=== PATIENT | male | born 1960 | race Two or more races ===

== ENCOUNTER 2019-08-16 17:18 | Inpatient (IN) | payer BC, OTHER ==
[~2019-08-16] VITALS: Ht 177.8 cm; Wt 76.7 kg
[2019-08-16] MEDS ORDERED: HYDROMORPHONE INJ 2 MG/ML DISP.SYRIN IV ONE ×2 (17:30→18:30)
[2019-08-16] MEDS ORDERED: ONDANSETRON HCL/PF 4 MG/2 ML VIAL IVP ONE (17:30)
[2019-08-16] MEDS ORDERED: IV NS 0.9% 1,000 ML BAG IV ONE ×2 (17:30→18:30)
[2019-08-16 17:43] LABS: BASOPHILS % (AUTO) 0.3 % (0.0-2.0); EOSINOPHILS % (AUTO) 0.1 % (0.0-6.0); HEMATOCRIT 54 % (39-51); HEMOGLOBIN 18.4 g/dL (13.5-17.5); LYMPHOCYTES # (AUTO) 0.5 /CMM (0.8-4.8); LYMPHOCYTES % (AUTO) 7.4 % (20.0-44.0); MEAN CORPUSCULAR HGB CONC 34 g/dl (31.0-36.0); MEAN CORPUSCULAR VOLUME 86 fL (80-96); MONOCYTES # (AUTO) 0.3 /CMM (0.1-1.30); MONOCYTES % (AUTO) 3.7 % (2.0-12.0); NEUTROPHILS # (AUTO) 6.5 /CMM (1.8-8.9); NEUTROPHILS % (AUTO) 88.5 % (43.0-81.0); PLATELET COUNT (AUTO) 188 /CMM (150-450); RED BLOOD CELL COUNT(AUTO) 6.25 MIL/uL (4.5-6.0); WHITE BLOOD COUNT (AUTO) 7.3 K/uL (4.3-11.0)
[2019-08-16] MEDS ORDERED: HYDROMORPHONE 1 MG/1 ML DISP.SYRIN ONE ×3 (17:57→19:51)
[2019-08-16] MEDS ORDERED: ONDANSETRON HCL/PF 4 MG/2 ML VIAL ONE (17:57)
[2019-08-16 17:59] LABS: ALBUMIN 4.3 g/dL (3.4-5.0); BILIRUBIN,DIRECT 0.2 mg/dL (0.0-0.2); BILIRUBIN,TOTAL 0.8 mg/dL (0.2-1.0); CALCIUM, SERUM 9.3 mg/dL (8.5-10.1); CREATININE 1.5 mg/dL (0.6-1.3); POTASSIUM 3.3 mmol/L (3.5-5.1); TOTAL PROTEIN, SERUM 7.5 g/dL (6.4-8.2)
--- NOTE | 2019-08-16 18:07 | NUR ---
diffuse abdominal pain, distension since noon. n/v x 1 lpta. PT AAOX4, RR EVEN & UNLABORED. DENIES CP, SOB, DIZZINESS @ THIS TIME. PT SEEN & EVAL'D BY DAMEON SILVEIRA. MEDICATED ORDERED, PT JOANNA WELL. WILL CONT TO MONITOR.
[2019-08-16] MEDS ORDERED: IV NS 0.9% 250 ML IV ONE (18:13)
[2019-08-16] MEDS ORDERED: CT SWABBABLE VALVE TRANS SET 1 EA INFUS.SET MC ONE (18:13)
[2019-08-16] MEDS ORDERED: IOHEXOL-300 100 ML VIAL IV ONE (18:13)
[2019-08-16 18:24] LABS: LYMPHOCYTES % (MANUAL) 7 % (16-48); MONOCYTES % (MANUAL) 3 % (0-11.0); NEUTROPHILS % (MANUAL) 90 (42-76)
--- NOTE | 2019-08-16 18:48 | NUR ---
MEDICATED ORDERED BY DAMEON SILVEIRA. PT JOANNA ERWIN. 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
[2019-08-16] MEDS ORDERED: HYDROMORPHONE INJ 0.5 MG/0.5 ML SYRINGE IV ONE (20:00)
--- NOTE | 2019-08-16 20:02 | NUR ---
CALLED NURSING SUP FOR M/S BED.
[2019-08-16] MEDS ORDERED: KETOROLAC TROMETHAMINE INJ 30 MG/ML VIAL ONE (20:05)
--- NOTE | 2019-08-16 20:25 | NUR ---
MITUL RBUCE [phone]
--- NOTE | 2019-08-16 20:27 | NUR ---
MS BED 117-2
[2019-08-16] MEDS ORDERED: KETOROLAC TROMETHAMINE INJ 30 MG/ML VIAL IV ONE (20:30)
[2019-08-16] MEDS ORDERED: PIPERACILLIN /TAZOBACTAM 3.375 G in IV D5W 50 ML IV ONE (20:30)
[2019-08-16] MEDS ORDERED: PIPERACILLIN /TAZOBACTAM 3.375 G VIAL IV ONE (20:51)
[2019-08-16 21:14] LABS: APPEARANCE,URINE Clear (CLEAR); BILIRUBIN,URINE Negative (NEGATIVE); BLOOD, URINE Small Ery/uL (NEGATIVE); COLOR,URINE Yellow (YELLOW); KETONES,URINE 15 (NEGATIVE); LEUKOCYTE ESTERASE ,URINE Negative (NEGATIVE); NITRITE, URINE Negative (NEGATIVE); PROTEIN,URINE Negative (NEGATIVE); UGLUCOSE 100 MG/DL mg/dL (NEGATIVE); UROBILINOGEN,URINE 0.2 EU/dL (0.2)
[2019-08-16 21:23] LABS: BACTERIA,URINE Few /HPF (None Seen); SQUAMOUS EPITHELIAL CELL,UR Few /HPF (None Seen); WBC,URINE 0-2 /HPF (0-3)
[2019-08-16 22:00] VITALS: BP 187/114
--- NOTE | 2019-08-16 22:08 | NUR ---
REPORT GIVEN TO JOHNATHAN CORTES FOR THOMAS.
[2019-08-16] MEDS: IV NS 0.9% 1,000 ML IV PRN (22:59)
[2019-08-16] MEDS: HYDROMORPHONE INJ 2 MG/ML DISP.SYRIN IV PRN (23:00)
[2019-08-16] MEDS ORDERED: MAGNESIUM HYDROXIDE 30 ML UDC PO PRN (23:00)
[2019-08-16] MEDS ORDERED: MAG HYDROX/AL HYDROX/SIMETH 30 ML UDC PO PRN (23:00)
[2019-08-16] MEDS ORDERED: ONDANSETRON HCL/PF 4 MG/2 ML VIAL IVP PRN (23:00)
[2019-08-16] MEDS ORDERED: HYDROCODONE/APAP 5/325MG 1 EACH TABLET PO PRN (23:00)
[2019-08-16] MEDS ORDERED: ZOLPIDEM TARTRATE 5 MG TABLET PO PRN (23:00)
[2019-08-17] VITALS (26 sets, daily range): BP systolic 80–117; BP diastolic 47–72
[2019-08-17] MEDS: HYDROMORPHONE INJ 2 MG/ML DISP.SYRIN IV PRN ×2 (02:39→06:47)
[2019-08-17] MEDS ORDERED: ZOSYN IVPB 3.375 G in IV D5W 50ml IV SCH (06:00)
[2019-08-17 06:35] LABS: BASOPHILS % (AUTO) 0.1 % (0.0-2.0); HEMATOCRIT 54 % (39-51); HEMOGLOBIN 18.1 g/dL (13.5-17.5); LYMPHOCYTES # (AUTO) 0.5 /CMM (0.8-4.8); LYMPHOCYTES % (AUTO) 8.6 % (20.0-44.0); MEAN CORPUSCULAR HGB CONC 34 g/dl (31.0-36.0); MEAN CORPUSCULAR VOLUME 88 fL (80-96); MONOCYTES # (AUTO) 0.4 /CMM (0.1-1.30); MONOCYTES % (AUTO) 7.6 % (2.0-12.0); NEUTROPHILS # (AUTO) 4.4 /CMM (1.8-8.9); NEUTROPHILS % (AUTO) 83.7 % (43.0-81.0); PLATELET COUNT (AUTO) 232 /CMM (150-450); WHITE BLOOD COUNT (AUTO) 5.3 K/uL (4.3-11.0)
--- NOTE | 2019-08-17 07:00 | NUR ---
RN MS NOTES PATIENT RECEIVED FROM PM SHIFT. PATIENT IS AWAKE AND ORIENTED X4 . PATIENT COMPLAINED OF PAIN L SIDE 06/30 PATIENT IS ON 2 L NC 98% SATURATION, PATIENT CURRENTLY HAS ELEVATED HEART RATE. PATIENT IN AMBULATORY SKIN IS IN TACT. PATIENT IS ON NPO POST MIDNIGHT. PATIENT HAS R AC 18G WITH NS 0.9% AT A RATE OF 125 ML/HR. DRESSING IS CLEAN AND INTACT, NO SIGNS OF INFILTRATION. WILL CONTINUE TO MONITOR BED LOCKED AND LOWEST POSITION, CALL LLIGHT WITH IN REACH
[2019-08-17 07:04] LABS: ALBUMIN 2.9 g/dL (3.4-5.0); CREATININE 3.2 mg/dL (0.6-1.3); MAGNESIUM 1.4 mg/dL (1.8-2.4); PHOSPHORUS 2.7 mg/dL (2.5-4.9); POTASSIUM 3.5 mmol/L (3.5-5.1); TOTAL PROTEIN, SERUM 5.8 g/dL (6.4-8.2)
[2019-08-17] MEDS ORDERED: FAMOTIDINE (20 MG) 20 MG TABLET PO SCH (09:00)
--- NOTE | 2019-08-17 09:07 | NUR ---
RN MS NOTES PATIENT NAUSEAS/VOMITING DID NOT ADMINISTER MEDICATION
[2019-08-17 09:16] LABS: BAND % (MANUAL) 9 % (0.0-5.0); LYMPHOCYTES % (MANUAL) 15 % (16-48); MONOCYTES % (MANUAL) 11 % (0-11.0); NEUTROPHILS % (MANUAL) 65 (42-76)
--- NOTE | 2019-08-17 10:30 | NUR ---
RN MS NOTES PATIENT WITH TRANSPORT TEAM TO OR
[2019-08-17] MEDS ORDERED: SUCCINYLCHOLINE CHLORIDE 20 MG/ML VIAL ONE (11:09)
[2019-08-17] MEDS ORDERED: SCOPOLAMINE HBR 1 EA PATCH.TD72 TD ONE (11:10)
[2019-08-17] MEDS ORDERED: EPINEPHRINE (1:10,000) SYRINGE 1 MG/10 ML DISP.SYRIN ONE (11:20)
[2019-08-17] MEDS ORDERED: ANESTHESIA TRAY IN PYXIS 1 EA TRAY MC ONE (11:23)
[2019-08-17] MEDS ORDERED: IOHEXOL 240MG/ML 50 ML IV ONE (11:26)
[2019-08-17] MEDS ORDERED: ETOMIDATE 2 MG/ML VIAL ONE (11:52)
[2019-08-17] MEDS ORDERED: PIPERACILLIN /TAZOBACTAM 3.375 G in IV D5W 100 ML IV SCH (12:00)
[2019-08-17] MEDS ORDERED: MORPHINE SULFATE/PF 30 MG in IV NS 0.9% 27 ML, PCA TOTAL VOLUME 1 BAG IV PRN ×3 (12:30)
--- NOTE | 2019-08-17 12:39 | NUR ---
[facility] via 7.0 et tube secured @ 23cm lipline with following parameters per dr benites: AC 12, vt 500, fio2 100%, peep +5. breath sounds clear bilateral. vent plugged into red outlet with alarms on and functioning. sean @ bedside. Addendum: 08/17/19 at 1342 by VICKY GOLDSMITH RT Amended: Links added.
--- NOTE | 2019-08-17 12:40 | NUR ---
ASSESSMENT CONSULTANT INITIAL NOTE RECEIVED REPORT FROM KARLOS MANN FROM [facility].RECEIVED PATIENT FROM OR.INTUBATED 7.0 @ LIP LEVEL.WITH SEVERE AGITATION. STARTED HIM ON PROPOFOL.PLACED ON BILATERAL SOFT RESTRAINTS.NOTED WITH ABDOMINAL DISTENTION.IV ON RAC #18.ITACT AND PATENT.BE DIS LOCKED AND IN LOW POSITION.SRX3.BED ALARM ON .WILL CONTINUE TO MONITOR.
[2019-08-17] MEDS ORDERED: HYDROMORPHONE 1 MG/1 ML DISP.SYRIN ONE (12:41)
--- NOTE | 2019-08-17 13:00 | NUR ---
RN MS NOTES PATIENT TRANSFERED TO ICU REPORT GIVEN TO AM SHIFT NURSE
[2019-08-17] MEDS: IV NS 0.9% 1,000 ML IV PRN ×3 (13:21→20:13)
--- NOTE | 2019-08-17 13:35 | NUR ---
et tube adjusted from 23cm to [address] Hatch
--- NOTE | 2019-08-17 13:36 | NUR ---
et tube adjusted from 23cm to [address] Hatch breath sounds clear bilateral post adjustment with symmetrical chest rise. Addendum: 08/17/19 at 1337 by VICKY GOLDSMITH RT Amended: Links added.
[2019-08-17 14:28] LABS: ABG BASE EXCESS -17.2 mmol/L; ABG OXYGEN SATURATION 94.6 % (92.0-98.5); ABG PCO2 36.7 mmHg (35.0-45.0); ABG PH 7.112 (7.350-7.450); ABG PO2 89.3 mmHg (75.0-100.0); COHb 0.2 % (0.5-1.5); MetHb 0.7 % (0.0-1.5); O2Hb 93.7 % (94.0-97.0); SITE, ABG Left Femoral; VENT MODE, BG AC 12 500 100% +5
--- NOTE | 2019-08-17 14:29 | NUR ---
VENT CHANGES BELOW PER DR. HEATH: AC 24 VT 550 ML NO PEEP RN NOTIFIED ON CHANGES. Addendum: 08/17/19 at 1430 by VICKY GOLDSMITH RT Amended: Links added.
[2019-08-17] MEDS ORDERED: SODIUM BICARBONATE SYR 50 MEQ/50 ML DISP.SYRIN IV ONE (14:30)
[2019-08-17] MEDS ORDERED: NOREPINEPHRINE 8 MG in IV D5W 500 ML IV PRN (14:30)
[2019-08-17] MEDS: PROPOFOL 100 ML IV PRN ×4 (14:32→23:56)
[2019-08-17] MEDS ORDERED: IV NS 0.9% 500 ML IV STA (14:42)
[2019-08-17 15:19] LABS: BASOPHILS % (AUTO) 0.2 % (0.0-2.0); EOSINOPHILS % (AUTO) 0.1 % (0.0-6.0); HEMATOCRIT 45 % (39-51); HEMOGLOBIN 15.1 g/dL (13.5-17.5); LYMPHOCYTES # (AUTO) 0.5 /CMM (0.8-4.8); LYMPHOCYTES % (AUTO) 11.6 % (20.0-44.0); MEAN CORPUSCULAR HGB CONC 33 g/dl (31.0-36.0); MEAN CORPUSCULAR VOLUME 89 fL (80-96); MONOCYTES # (AUTO) 0.3 /CMM (0.1-1.30); MONOCYTES % (AUTO) 7.5 % (2.0-12.0); NEUTROPHILS # (AUTO) 3.3 /CMM (1.8-8.9); NEUTROPHILS % (AUTO) 80.6 % (43.0-81.0); PLATELET COUNT (AUTO) 160 /CMM (150-450); RED BLOOD CELL COUNT(AUTO) 5.08 MIL/uL (4.5-6.0); WHITE BLOOD COUNT (AUTO) 4.1 K/uL (4.3-11.0)
--- NOTE | 2019-08-17 15:56 | NUR ---
LENO SEWER NOTE PATIENT WAS UNSTABLE.ABDOMEN MORE DISTENDED THAN ADMISSION TIME TO ICU .BP TRENDING LOW.[facility] [facility] MADE AWARE .GOT ORDER TO GIVE 1L NS WIDE OPEN.SPOKE TO ,UPDATED ABOUT PATIENT CONDITION.HE THINKS NOT FROM CYSTOSCOPY. AT BEDSIDE.WILL HAVE CALL .GOT NEW ORDDRS FROM .SPOKE TO THE FAMILY, DAUGHTER BY IN ROOM AND ANSWERED ALL THE QUESTIONS.GOT NEW ORDER FOR 500ML NS WIDE OPEN FROM .OG TUBE INSERTED.[facility] [facility] MADE AWARE ABOUT COFFEE GROUND SECRETIONS FROM NGT.TO START ON LOW INTERMENT SUCTION.STAT LABS .GOT NEW ORDER FOR GI CONSULT AND NEPHROLOGY CONSULT FROM .LEFT MESSAGE TO ABOUT CONSULT.[facility] SPOKE TO THE PATIENT DAUGHTER ADILENE IN PHONE.ANSWERED ALL QUESTIONS.GOT ORDER FOR STAT CT SCAN OF ABDOMEN AND PELVIS .AWAITING FOR NEPHROSTOMY .DAUGHTER ADILENE SIGNED ALL CONSENTS.WILL CONTINUE TO MONITOR.
[2019-08-17 16:28] LABS: CARBON DIOXIDE 17 mmol/L (21-32); CHLORIDE 111 mmol/L (98-107); POTASSIUM 4.7 mmol/L (3.5-5.1); SODIUM SERUM 146 mmol/L (136-145)
[2019-08-17 16:29] LABS: CALCIUM, SERUM 6.9 mg/dL (8.5-10.1); CREATININE 3.9 mg/dL (0.6-1.3); GLUCOSE 125 mg/dL (74-106); UREA NITROGEN, BLOOD 27 mg/dL (7-18)
[2019-08-17 16:56] LABS: ABG OXYGEN SATURATION 98.5 % (92.0-98.5); ABG PCO2 31.8 mmHg (35.0-45.0); ABG PH 7.233 (7.350-7.450); ABG PO2 144.6 mmHg (75.0-100.0); AaDO2 536.6 mmHg; COHb 0.5 % (0.5-1.5); MetHb 0.8 % (0.0-1.5); O2Hb 97.2 % (94.0-97.0); SITE, ABG Right Brachial; VENT MODE, BG AC 24 550 100% +0
[2019-08-17] MEDS ORDERED: DEXTROSE 50%-WATER 50 ML DISP.SYRIN IV PRN (17:30)
--- NOTE | 2019-08-17 17:30 | NUR ---
WHEEL TUNER NOTE SEEN BY [facility] [facility].UPDATED ABOUT PATIENT CONDITION WITH DISTENDED ABDOMEN AND SWOLLEN FLANK.WILL CONTINUE TO MONITOR .AWAITING CT RESULT.
[2019-08-17] MEDS: NOREPINEPHRINE 8 MG in IV D5W 500 ML IV PRN (17:51)
[2019-08-17] MEDS ORDERED: IV NS 0.9% 250 ML IV ONE (17:53)
[2019-08-17] MEDS ORDERED: CT SWABBABLE VALVE TRANS SET 1 EA INFUS.SET MC ONE (17:53)
[2019-08-17] MEDS ORDERED: IOHEXOL-300 100 ML VIAL IV ONE (17:53)
--- NOTE | 2019-08-17 18:06 | NUR ---
VENT CHANGES BELOW MADE PER DR. HEATH: FIO2 80% Addendum: 08/17/19 at 1807 by VICKY GOLDSMITH RT Amended: Links added.
[2019-08-17] MEDS ORDERED: FEE PK DOSING 1 MIN EA MC ONE (18:09)
[2019-08-17 18:41] LABS: ALBUMIN 1.7 g/dL (3.4-5.0); BILIRUBIN,DIRECT 0.2 mg/dL (0.0-0.2); BILIRUBIN,TOTAL 0.6 mg/dL (0.2-1.0); TOTAL PROTEIN, SERUM 3.6 g/dL (6.4-8.2)
[2019-08-17] MEDS: BLOOD SUGAR DIAGNOSTIC 1 EACH STRIP IN SCH (18:41)
--- NOTE | 2019-08-17 19:34 | NUR ---
AB INITIO ETL DEVELOPER CLOSING NOTE PATIENT IN BED.CT RESULT WITH CONTRAST AND WITHOUT CONTRAST RELAYED TO PRODUCT TECHNICIAN WITH LABS.GOT NEW ORDERS.GOT NEW ORDER FROM FOR VENT CHANGES BY RT.TOLERATING SETTINGS WELL.GOT CALL FROM .GOT NEW ORDER TO KEEP NPO,LOW INTERMITTENT SUCTION AND TO START ON PROTONIX.FAMILY UPDATED ABOUT PATIENT CONDITION.ENDORSED TO PM NURSE FOR [facility]OMAS.
[2019-08-17] MEDS: Magnesium 1GM/D5W 100ML PREMIX 100 ML IV SCH ×2 (19:46→22:56)
[2019-08-17] MEDS ORDERED: VANCOMYCIN 1 GM in IV D5W 250 ML IV SCH (20:00)
[2019-08-17] MEDS ORDERED: PANTOPRAZOLE 40 MG VIAL IV SCH (20:00)
--- NOTE | 2019-08-17 20:15 | NUR ---
CHILLER TECHNICIAN: DR. NJ CARMEN AND OUTPATIENT SCHEDULER AT BEDSIDE TO EVALUATE PT.
--- NOTE | 2019-08-17 20:30 | NUR ---
HOUSEKEEPING ROOM ATTENDANT: WITNESSED PHONE CONSENT BY DAUGHTER MITUL HAM FOR LEFT NEPRHOSTOMY TUBE PLACEMENT WT CHARGE NURSE BRYON. PT REMAINS SEDATED ON DIPRIVAN AT 50MCG/KG/MIN, ON LEVOPHED AT 20MCG/MIN, NS AT 200ML/HR. ST ON LINE SERVICE ATTENDANT. AFEBRILE. CONTINUE ON LOW INTERMITTENT SUCTION VIA OGT WT DARK BROWN GASTRIC CONTENTS. NO URINE OUTPUT VIA F/C. BILAT. SOFT WRIST RESTRAINTS IN PLACE TO PREVENT SELF EXTUBATION. SKIN CIRCULATION WNL WT NO BREAKDOWN. SAFETY PRECAUTION NOTED AT ALL TIMES.
[2019-08-17 20:44] LABS: BASOPHILS % (AUTO) 0.2 % (0.0-2.0); HEMATOCRIT 51 % (39-51); LYMPHOCYTES # (AUTO) 0.7 /CMM (0.8-4.8); LYMPHOCYTES % (AUTO) 14.4 % (20.0-44.0); MEAN CORPUSCULAR HGB CONC 34 g/dl (31.0-36.0); MEAN CORPUSCULAR VOLUME 89 fL (80-96); MONOCYTES # (AUTO) 0.2 /CMM (0.1-1.30); MONOCYTES % (AUTO) 3.9 % (2.0-12.0); NEUTROPHILS # (AUTO) 4.1 /CMM (1.8-8.9); NEUTROPHILS % (AUTO) 81.5 % (43.0-81.0); PLATELET COUNT (AUTO) 176 /CMM (150-450); RED BLOOD CELL COUNT(AUTO) 5.69 MIL/uL (4.5-6.0)
[2019-08-17] MEDS: FAMOTIDINE/PF INJ 20 MG/2 ML VIAL IV SCH (20:45)
[2019-08-17 20:50] LABS: CALCIUM, SERUM 6.8 mg/dL (8.5-10.1); CREATININE 4.3 mg/dL (0.6-1.3); POTASSIUM 4.7 mmol/L (3.5-5.1)
[2019-08-17] MEDS ORDERED: KETAMINE HCL (500MG/10ML) 50 MG/ML VIAL ONE (21:04)
[2019-08-17] MEDS ORDERED: VASOPRESSIN INJ 20 UNIT/ML VIAL ONE (21:05)
[2019-08-17] MEDS ORDERED: ALBUMIN 5% 500 ML IV ONE (21:07)
[2019-08-17] MEDS ORDERED: ALBUMIN 25% 50 ML IV ONE (21:07)
--- NOTE | 2019-08-17 21:13 | NUR ---
@2875 PT WENT TO O.R. FOR PROCEDURE.
[2019-08-17] MEDS ORDERED: FLUCONAZOLE IN NS 100 MG in PREMIX 1 EA IV SCH ×2 (22:00)
--- NOTE | 2019-08-17 22:22 | NUR ---
LARRIMAN: PT CAME BACK FROM SURGERY S/P LEFT NEPRHOSTOMY TUBE PLACEMENT. RECEIVED WT LEVOPHED AT 10MCG/MIN, STILL ON DIPRIVAN AT 50MCG/KG/MIN AND NS AT 200ML/HR. NEPHROSTOMY TUBE NOTED WT MINIMAL AMT. OF SEROSANGUINEOUS DRAINAGE. NO URINE OUTPUT ON F/C. WILL CONTINUE TO MONITOR.
[2019-08-17] MEDS: MEROPENEM 500 MG in IV NS 0.9% 50 ML IV SCH (23:13)
[2019-08-17 23:42] LABS: ABG BASE EXCESS -14.4 mmol/L; ABG OXYGEN SATURATION 93.3 % (92.0-98.5); ABG PCO2 30.9 mmHg (35.0-45.0); ABG PH 7.209 (7.350-7.450); ABG PO2 71.5 mmHg (75.0-100.0); AaDO2 466.5 mmHg; COHb 0.2 % (0.5-1.5); MetHb 0.7 % (0.0-1.5); O2Hb 92.5 % (94.0-97.0); SITE, ABG A-Line
--- NOTE | 2019-08-17 23:44 | NUR ---
STAT ABG DONE. NOTIFIED RN WITH THE RESULT.
[2019-08-18] VITALS (81 sets, daily range): BP systolic 87–129; BP diastolic 41–75
--- NOTE | 2019-08-18 | NUR ---
OIL LEASE BUYER: RELAYED ALL LAB AND ABG RESULTS TO [facility] WT NO NEW ORDER.
[2019-08-18] MEDS: NOREPINEPHRINE 8 MG in IV D5W 500 ML IV PRN ×2 (00:04→18:14)
[2019-08-18] MEDS: BLOOD SUGAR DIAGNOSTIC 1 EACH STRIP IN SCH ×4 (00:05→17:17)
[2019-08-18] MEDS: INSULIN REGULAR, HUMAN 100 UNIT/ML 3 ML VIAL SQ PRN ×2 (00:09→06:16)
[2019-08-18] MEDS ORDERED: Magnesium 1GM/D5W 100ML PREMIX 100 ML IV ONE (00:11)
[2019-08-18] MEDS: Magnesium 1GM/D5W 100ML PREMIX 100 ML IV SCH (00:11)
[2019-08-18 00:34] LABS: BASOPHILS % (AUTO) 0.2 % (0.0-2.0); HEMOGLOBIN 15.7 g/dL (13.5-17.5); MONOCYTES # (AUTO) 0.2 /CMM (0.1-1.30); NEUTROPHILS # (AUTO) 3.4 /CMM (1.8-8.9); WHITE BLOOD COUNT (AUTO) 4.1 K/uL (4.3-11.0)
[2019-08-18 00:36] LABS: EOSINOPHILS % (AUTO) 0.7 % (0.0-6.0); HEMATOCRIT 46 % (39-51); LYMPHOCYTES # (AUTO) 0.4 /CMM (0.8-4.8); LYMPHOCYTES % (AUTO) 10.2 % (20.0-44.0); MEAN CORPUSCULAR HGB CONC 34 g/dl (31.0-36.0); MEAN CORPUSCULAR VOLUME 89 fL (80-96); MONOCYTES % (AUTO) 5.6 % (2.0-12.0); NEUTROPHILS % (AUTO) 83.3 % (43.0-81.0); PLATELET COUNT (AUTO) 160 /CMM (150-450); RED BLOOD CELL COUNT(AUTO) 5.22 MIL/uL (4.5-6.0)
[2019-08-18 00:38] LABS: CALCIUM, SERUM 6.3 mg/dL (8.5-10.1); CREATININE 4.4 mg/dL (0.6-1.3); POTASSIUM 5.3 mmol/L (3.5-5.1)
[2019-08-18] MEDS: IV NS 0.9% 1,000 ML IV PRN ×5 (01:18→20:37)
[2019-08-18] MEDS: PROPOFOL 100 ML IV PRN ×5 (03:11→20:58)
[2019-08-18 04:30] LABS: BASOPHILS % (AUTO) 0.2 % (0.0-2.0); EOSINOPHILS % (AUTO) 0.1 % (0.0-6.0); HEMATOCRIT 47 % (39-51); HEMOGLOBIN 16.1 g/dL (13.5-17.5); LYMPHOCYTES # (AUTO) 0.4 /CMM (0.8-4.8); LYMPHOCYTES % (AUTO) 9.5 % (20.0-44.0); MEAN CORPUSCULAR HGB CONC 34 g/dl (31.0-36.0); MEAN CORPUSCULAR VOLUME 89 fL (80-96); MONOCYTES # (AUTO) 0.2 /CMM (0.1-1.30); MONOCYTES % (AUTO) 5.5 % (2.0-12.0); NEUTROPHILS # (AUTO) 3.8 /CMM (1.8-8.9); NEUTROPHILS % (AUTO) 84.7 % (43.0-81.0); PLATELET COUNT (AUTO) 149 /CMM (150-450); RED BLOOD CELL COUNT(AUTO) 5.31 MIL/uL (4.5-6.0); WHITE BLOOD COUNT (AUTO) 4.5 K/uL (4.3-11.0)
[2019-08-18 04:42] LABS: CALCIUM, SERUM 6.3 mg/dL (8.5-10.1); CREATININE 4.7 mg/dL (0.6-1.3); MAGNESIUM 1.8 mg/dL (1.8-2.4); PHOSPHORUS 2.7 mg/dL (2.5-4.9); POTASSIUM 5.2 mmol/L (3.5-5.1)
--- NOTE | 2019-08-18 06:44 | NUR ---
ELECTRICAL FITTER: STILL ON LEVOPHED AT 8MCG/MIN AND DIPRIVAN AT 50MCG/KG/MIN. WITHDRAWS TO PAIN STIMULI. VENT SETTINGS ORDERED WT 02 SAT AT 94%. ST ON MONITOR WT HR IN THE 120s. TURNED AND REPOSITIONED Q2H. SAFETY PRECAUTION NOTED AT ALL TIMES.
[2019-08-18 08:04] LABS: ABG BASE EXCESS -13.9 mmol/L; ABG OXYGEN SATURATION 93.2 % (92.0-98.5); ABG PCO2 24.7 mmHg (35.0-45.0); ABG PH 7.267 (7.350-7.450); ABG PO2 70.4 mmHg (75.0-100.0); AaDO2 474.1 mmHg; COHb 0.2 % (0.5-1.5); MetHb 0.8 % (0.0-1.5); O2Hb 92.3 % (94.0-97.0); PEEP,BG 0 cm H2O; SITE, ABG A-Line; VT, ABG 550 mL
[2019-08-18] MEDS: FAMOTIDINE/PF INJ 20 MG/2 ML VIAL IV SCH ×2 (08:21→20:39)
[2019-08-18 08:33] LABS: APPEARANCE,URINE TURBID (CLEAR); BILIRUBIN,URINE MODERATE (NEGATIVE); BLOOD, URINE LARGE Ery/uL (NEGATIVE); COLOR,URINE BROWN (YELLOW); KETONES,URINE TRACE (NEGATIVE); LEUKOCYTE ESTERASE ,URINE NEGATIVE (NEGATIVE); NITRITE, URINE POSITIVE (NEGATIVE); PROTEIN,URINE >=300 mg/dl (NEGATIVE); UGLUCOSE 100 MG/DL mg/dL (NEGATIVE)
[2019-08-18 08:43] LABS: RBC,URINE TOO NUMEROUS TO COUN /HPF (0-2); WBC,URINE 0-2 /HPF (0-3)
[2019-08-18 08:44] LABS: BACTERIA,URINE Rare /HPF (None Seen); SQUAMOUS EPITHELIAL CELL,UR Few /HPF (None Seen)
--- NOTE | 2019-08-18 10:05 | NUR ---
RN NOTE 0715: Received patient sedated. On Diprivan @ 50mcg. With ETT to vent, tolerated settings at this time. With Right femoral A-line, SBP >90, will titrate Levophed as ordered, on 8mcg at this time. CHENCHO PICC intact, IVF in fusing as ordered. OGT intact, on LIS, no residuals at this time, noted with coffee ground from the tube. Acuña cath intact, noted with very minimal tea colored urine drained to BSD. With left nephrostomy intact, noted with minimal urine with some sanguineus. ST 120's on the monitor, with temp 99.6. 0940: CXR and KUB tech at bedside, Dr. Ott saw images. S/E by Dr. Sanabria, will start on Bumex, together with NS @ 200. MDs aware for the Top 1.008, LA 5.8. higher BUN/Cr. 0945: Family at bedside, spoke with MDs, discussed re: the POC. 1005: US tech at bedside for US kidneys. S/E by Danyel REPEAT PHOTOCOMPOSING MACHINE OPERATOR, verbalized abdomen is improved. Per REPEAT PHOTOCOMPOSING MACHINE OPERATOR, she consulted GI, Dr. Morales. 1015: Bumex started, monitoring UOP. Family aware for the POC.
[2019-08-18 10:29] LABS: BASOPHILS % (AUTO) 0.1 % (0.0-2.0); EOSINOPHILS % (AUTO) 0.3 % (0.0-6.0); HEMATOCRIT 45 % (39-51); HEMOGLOBIN 15.6 g/dL (13.5-17.5); LYMPHOCYTES # (AUTO) 0.4 /CMM (0.8-4.8); LYMPHOCYTES % (AUTO) 6.8 % (20.0-44.0); MEAN CORPUSCULAR HGB CONC 35 g/dl (31.0-36.0); MEAN CORPUSCULAR VOLUME 88 fL (80-96); MONOCYTES # (AUTO) 0.3 /CMM (0.1-1.30); NEUTROPHILS # (AUTO) 4.7 /CMM (1.8-8.9); NEUTROPHILS % (AUTO) 87.8 % (43.0-81.0); PLATELET COUNT (AUTO) 105 /CMM (150-450); RED BLOOD CELL COUNT(AUTO) 5.08 MIL/uL (4.5-6.0); WHITE BLOOD COUNT (AUTO) 5.4 K/uL (4.3-11.0)
[2019-08-18] MEDS ORDERED: BUMETANIDE INJ 8 MG in IV NS 0.9% 48 ML IV ONE (10:30)
[2019-08-18 10:35] LABS: ALBUMIN 1.7 g/dL (3.4-5.0); BILIRUBIN,TOTAL 1.2 mg/dL (0.2-1.0); CALCIUM, SERUM 6.1 mg/dL (8.5-10.1); CREATININE 5.3 mg/dL (0.6-1.3); POTASSIUM 5.9 mmol/L (3.5-5.1)
[2019-08-18 13:42] LABS: EOSINOPHIL,URINE None Seen
[2019-08-18 13:46] LABS: CREATININE, URINE 85.6 MG/DL (30.0-125.0); URINE TOTAL PROTEIN 377.3 mg/dL (0-11.9)
[2019-08-18] MEDS: ACETAMINOPHEN 325 MG TABLET PO PRN (14:48)
[2019-08-18 15:05] LABS: APPEARANCE,URINE CLOUDY (CLEAR); BILIRUBIN,URINE MODERATE (NEGATIVE); BLOOD, URINE LARGE Ery/uL (NEGATIVE); COLOR,URINE RED (YELLOW); KETONES,URINE TRACE (NEGATIVE); LEUKOCYTE ESTERASE ,URINE TRACE (NEGATIVE); NITRITE, URINE POSITIVE (NEGATIVE); PH,URINE 5.5 (5.0-8.0); PROTEIN,URINE >=300 mg/dl (NEGATIVE); UGLUCOSE NEGATIVE (NEGATIVE); UROBILINOGEN,URINE 0.2 EU/dL (0.2)
[2019-08-18 15:07] LABS: APPEARANCE,URINE CLOUDY (CLEAR); BILIRUBIN,URINE MODERATE (NEGATIVE); BLOOD, URINE LARGE Ery/uL (NEGATIVE); COLOR,URINE AMBER (YELLOW); KETONES,URINE TRACE (NEGATIVE); LEUKOCYTE ESTERASE ,URINE TRACE (NEGATIVE); NITRITE, URINE POSITIVE (NEGATIVE); PH,URINE 6.5 (5.0-8.0); PROTEIN,URINE >=300 mg/dl (NEGATIVE); UGLUCOSE NEGATIVE (NEGATIVE); UROBILINOGEN,URINE 0.2 EU/dL (0.2)
--- NOTE | 2019-08-18 15:21 | NUR ---
RN NOTE 1100: Dr. Sanabria and Danyel HIGHWAY PAINTER HELPER aware for the latest BMP, decided for HD, Anthony, daughter gave consent and Danyel PRATT called Dr. Ivan for HD cath placement. 1515: Dr. Ivan at bedside for HD cath placement.
[2019-08-18 15:22] LABS: RBC,URINE TOO NUMEROUS TO COUN /HPF (0-2)
[2019-08-18 15:23] LABS: BACTERIA,URINE None seen /HPF (None Seen); SQUAMOUS EPITHELIAL CELL,UR None Seen /HPF (None Seen)
[2019-08-18 15:24] LABS: RBC,URINE TOO NUMEROUS TO COUN /HPF (0-2); WBC,URINE 21-50 /HPF (0-3)
[2019-08-18 15:25] LABS: BACTERIA,URINE Moderate /HPF (None Seen); SQUAMOUS EPITHELIAL CELL,UR Few /HPF (None Seen)
--- NOTE | 2019-08-18 16:30 | NUR ---
RN NOTE S/E by Do BECKETT, temp 101.2, aware, ID said she will do some changes with ATB.
[2019-08-18 16:52] LABS: POTASSIUM 5.6 mmol/L (3.5-5.1)
[2019-08-18 16:54] LABS: CALCIUM, SERUM 5.7 mg/dL (8.5-10.1)
[2019-08-18 17:23] LABS: ABG BASE EXCESS -8.2 mmol/L; ABG OXYGEN SATURATION 95.5 % (92.0-98.5); ABG PCO2 30.5 mmHg (35.0-45.0); ABG PH 7.341 (7.350-7.450); ABG PO2 76.4 mmHg (75.0-100.0); AaDO2 606.1 mmHg; COHb 0.2 % (0.5-1.5); MetHb 0.6 % (0.0-1.5); O2Hb 94.7 % (94.0-97.0); PEEP,BG 5 cm H2O; SITE, ABG A-Line; VT, ABG 550 mL
--- NOTE | 2019-08-18 17:49 | NUR ---
RN NOTE 1600: Dr. Ivan placed left fem HD cath. 1615: Cleaned patient, no BM, no new skin issues. Started on HD, placed on 6mcg of Levo for SBP 80's. 1645: Titrated 12mcg Levo. HD ongoing. 1700: BMP and ABG while on HD resulted, per Danyel MECHANICAL TEST TECHNICIAN ok while on HD. Danyel MECHANICAL TEST TECHNICIAN for the result, DCd insulin. 1745: HD still ongoing, tolerated, but on Levo @ 12mcg.
--- NOTE | 2019-08-18 18:29 | NUR ---
RN NOTE Done with HD, HD nurse reported 1000mL out. SBP 110's, will titrate Levo as ordered.
[2019-08-18] MEDS ORDERED: JEVITY 1.2 CAL 1,000 ML BOTTLE GT PRN ×2 (18:30→19:00)
--- NOTE | 2019-08-18 19:30 | NUR ---
RN NOTES RECEIVED PATIENT ORALLY INTUBATED WITH ETT 7.0 AND 25 CM AT LIP CONNECTED TO AC MODE 24 TV 550 FIO2 100% PEEP 5 PATIENT IS SEDATED WITH DIPRIVAN. ST 130'S ON TELE MONITOR. SATURATION BETWEEN 89-91 %. OGT IN LIS WITH COFFEE GROUND OUTPUT ON THE TUBE , WITH LEFT NEPHROSTOMY WITH SMALL SANGUINOUS. IV SITE ON L;AC ,CHENCHO PICC LINE WITH DIPRIVAN @ 50 MCG/KG/MIN AND NS @ 200ML/HR ANS RIGHT FEMORAL WITH A- LINE CALIBRATED AND ZEROED. LAC G 18 HL AND LH G 20 HL ALL IV LINE ARE INTACT AND PATENT. LEFT FEMORAL HD WITH CLEAN AND DRY DRESSING. FEBRILE AT 101.4 COOLING MEASURES PROVIDED ON AXILLA, GROIN, FOREHEAD. KEPT PT CLEAN AND DRY. WILL CLOSELY MONITOR.
[2019-08-18] MEDS: MEROPENEM 500 MG in IV NS 0.9% 50 ML IV SCH (20:39)
--- NOTE | 2019-08-18 21:10 | NUR ---
RN NOTES CALLED AND INFORMED ONEYDA CHILD DEVELOPMENT ASSISTANT THAT FRANSISCO FROM LAB CALLED REPORTED THAT PATIENT FIBRINOGEN IS 846 PER CHILD DEVELOPMENT ASSISTANT SHE ORDERED LABS AND ABG AND TO INFORMED HER THE RESULT.
[2019-08-18 22:00] LABS: BASOPHILS # (AUTO) 0.1 /CMM (0.0-0.2); BASOPHILS % (AUTO) 1.1 % (0.0-2.0); EOSINOPHILS % (AUTO) 0.1 % (0.0-6.0); HEMATOCRIT 41 % (39-51); HEMOGLOBIN 14.7 g/dL (13.5-17.5); LYMPHOCYTES # (AUTO) 0.2 /CMM (0.8-4.8); LYMPHOCYTES % (AUTO) 3.2 % (20.0-44.0); MEAN CORPUSCULAR HGB CONC 36 g/dl (31.0-36.0); MEAN CORPUSCULAR VOLUME 87 fL (80-96); MONOCYTES # (AUTO) 0.2 /CMM (0.1-1.30); MONOCYTES % (AUTO) 2.4 % (2.0-12.0); NEUTROPHILS % (AUTO) 93.2 % (43.0-81.0); PLATELET COUNT (AUTO) 102 /CMM (150-450); RED BLOOD CELL COUNT(AUTO) 4.72 MIL/uL (4.5-6.0); WHITE BLOOD COUNT (AUTO) 7.5 K/uL (4.3-11.0)
[2019-08-18 22:07] LABS: CALCIUM, SERUM 6.1 mg/dL (8.5-10.1); CREATININE 5.3 mg/dL (0.6-1.3); POTASSIUM 4.7 mmol/L (3.5-5.1)
[2019-08-18 22:40] LABS: ABG BASE EXCESS -7.5 mmol/L; ABG PCO2 33.6 mmHg (35.0-45.0); ABG PH 7.332 (7.350-7.450); ABG PO2 62.9 mmHg (75.0-100.0); AaDO2 616.5 mmHg; COHb 0.2 % (0.5-1.5); MetHb 0.6 % (0.0-1.5); O2Hb 90.3 % (94.0-97.0); PEEP,BG 5 cm H2O; SITE, ABG A-Line
--- NOTE | 2019-08-18 22:42 | NUR ---
SDAI DONE. NOTIFIED JOHNATHAN JEFFERY WITH THE RESULT.
--- NOTE | 2019-08-18 22:45 | NUR ---
RN NOTES ASSISTANT PROFESSOR OF ARCHAEOLOGY ONEYDA CALLED AND WANTS AN UPDATE TO PATIENT ABG INFORMED THAT NO ORDERED FOR ABG AND WE ORDERED STAT ALREADY. AND WILL FAX THE RESULT RIGHT AWAY.
--- NOTE | 2019-08-18 23:01 | NUR ---
RN NOTES CHERYL PRATT CALLED AND ORDERED STAT CXR, CALLED RADIOLOGY FOR STAT ORDER , CXR DONE AT BEDSIDE. WILL FOLLOW UP RESULT
--- NOTE | 2019-08-18 23:30 | NUR ---
RN NOTES NOTED THAT ONEYDA MUSIC ASSISTANT ORDERED TO CHANGE VENT SETTING OF PEEP TO 10, CALLED AND SPOKE TO RT AND VERIFIED ORDER. RT CHANGE PEEP FROM PEEP 5 TO 10 WILL CONT. TO MONITOR.
--- NOTE | 2019-08-18 23:33 | NUR ---
PEEP CHANGED TO 10 PER ONEYDA. JOHNATHAN JEFFERY NOTIFIED.
[2019-08-18 23:48] LABS: LYMPHOCYTES % (MANUAL) 6 % (16-48); MONOCYTES % (MANUAL) 1 % (0-11.0); NEUTROPHILS % (MANUAL) 93 (42-76)
[2019-08-19] VITALS (40 sets, daily range): BP systolic 82–127; BP diastolic 44–65
[2019-08-19] MEDS: PROPOFOL 100 ML IV PRN ×6 (00:21→16:39)
[2019-08-19] MEDS: BLOOD SUGAR DIAGNOSTIC 1 EACH STRIP IN SCH ×4 (00:25→17:54)
[2019-08-19] MEDS: ACETAMINOPHEN 325 MG TABLET PO PRN (00:48)
[2019-08-19] MEDS ORDERED: GENTAMICIN 80 MG in IV NS 0.9% 50 ML IV ONE (01:30)
[2019-08-19] MEDS: IV NS 0.9% 1,000 ML IV PRN ×2 (01:31→06:37)
[2019-08-19] MEDS ORDERED: GENTAMICIN 80 MG/2 ML VIAL ONE (01:53)
[2019-08-19 04:31] LABS: BASOPHILS % (AUTO) 0.2 % (0.0-2.0); EOSINOPHILS % (AUTO) 0.1 % (0.0-6.0); HEMATOCRIT 42 % (39-51); HEMOGLOBIN 14.9 g/dL (13.5-17.5); LYMPHOCYTES # (AUTO) 0.2 /CMM (0.8-4.8); LYMPHOCYTES % (AUTO) 3.7 % (20.0-44.0); MEAN CORPUSCULAR HGB CONC 36 g/dl (31.0-36.0); MEAN CORPUSCULAR VOLUME 88 fL (80-96); MONOCYTES # (AUTO) 0.2 /CMM (0.1-1.30); NEUTROPHILS # (AUTO) 6.2 /CMM (1.8-8.9); PLATELET COUNT (AUTO) 96 /CMM (150-450); RED BLOOD CELL COUNT(AUTO) 4.76 MIL/uL (4.5-6.0); WHITE BLOOD COUNT (AUTO) 6.6 K/uL (4.3-11.0)
[2019-08-19 04:46] LABS: CALCIUM, SERUM 6.1 mg/dL (8.5-10.1); CREATININE 5.8 mg/dL (0.6-1.3); MAGNESIUM 1.8 mg/dL (1.8-2.4); PHOSPHORUS 4.4 mg/dL (2.5-4.9); POTASSIUM 4.8 mmol/L (3.5-5.1)
[2019-08-19 05:34] LABS: LYMPHOCYTES % (MANUAL) 5 % (16-48); MONOCYTES % (MANUAL) 5 % (0-11.0); NEUTROPHILS % (MANUAL) 90 (42-76)
--- NOTE | 2019-08-19 06:30 | NUR ---
RN NOTES DR. HEATH CALLED UPDATED REGARDING PATIENT STATUS. WITH NEW ORDER OF STA KUB AND STA ABG AND TO CALL HIM STAT IF HE DIDN'T ANSWER RIGHT AWAY TO CALL EXCHANGED. CALL RT AND CALL RADIOLOGY FOR STAT ORDER.
[2019-08-19 06:39] LABS: ABG BASE EXCESS -8.6 mmol/L; ABG OXYGEN SATURATION 93.9 % (92.0-98.5); ABG PCO2 35.1 mmHg (35.0-45.0); ABG PO2 78.9 mmHg (75.0-100.0); COHb 0.3 % (0.5-1.5); MetHb 0.7 % (0.0-1.5); PEEP,BG 10 cm H2O; SITE, ABG A-Line
--- NOTE | 2019-08-19 06:41 | NUR ---
G DONE. NOTIFIED JOSE D MANN WITH THE RESULT.
--- NOTE | 2019-08-19 07:20 | NUR ---
RN NOTES LATEST ABG RESULT REPORTED PH 7.3 PCO2 35.1 PO2 78.9 HCO3 16.9. AWAITING FOR KUB RESULT. PATIENT STILL ON VENT SETTING OF AC 24 TV 550 FIO2 100% AND PEEP 10 SATURATION RUNNING TO 90-94 %. LATEST TEMPERATURE 99.6. PROCALCITONIN >200 LACTIC ACID 3.6 FIBRINOGEN 846 AND TROPONIN 1.361 RECORDER. KEPT PT CLEAN AND DRY. ENDORSED CONTINUITY OF CARE TO AM NURSE.
[2019-08-19] MEDS: FAMOTIDINE/PF INJ 20 MG/2 ML VIAL IV SCH ×2 (08:25→21:55)
--- NOTE | 2019-08-19 08:45 | NUR ---
ICU NOTES ONEYDA NETWORK SECURITY ENGINEER CALLED TO INQUIRE RE-PT'S CONDITION AND RESULT ABG,DETAILED REPORT GIVEN
--- NOTE | 2019-08-19 08:45 | NUR ---
ICU/RN: Dr Edward notified with labs and imaging results. New orders to advance ETT noted and carried out. ETT advanced to 26cm lip line. ABG draw ordered at 0930 s/p vent changes.
--- NOTE | 2019-08-19 09:40 | NUR ---
ICU/RN: Bonita Montaño, VIDEO SYSTEM REPAIRER at bedside. Updated on pt status, imaging and labs. Lengthy discussion with daughter at the bedside regarding plan of care. Family wishes to transfer pt to [facility] when pt is stable.
[2019-08-19 09:41] LABS: ABG BASE EXCESS -8.8 mmol/L; ABG OXYGEN SATURATION 95.9 % (92.0-98.5); ABG PCO2 33.4 mmHg (35.0-45.0); ABG PO2 89.3 mmHg (75.0-100.0); AaDO2 590.3 mmHg; COHb 0.3 % (0.5-1.5); MetHb 0.5 % (0.0-1.5); O2Hb 95.1 % (94.0-97.0); PEEP,BG 13 cm H2O; SITE, ABG A-Line; VT, ABG 550 mL
[2019-08-19] MEDS: ACETAMINOPHEN 650 MG/SUPP.RECT RC PRN (10:06)
--- NOTE | 2019-08-19 10:15 | NUR ---
ICU/RN: Dr Kim at bedside, updated on pt status. Lengthy discussion with family regarding plan of care. Plan for HD today.
--- NOTE | 2019-08-19 12:05 | NUR ---
PER JOHNATHAN CALLOWAY, PROCEDURE ON HOLD POSS PATIENT WILLGO FOR SURGERY, FOLLOW UP
[2019-08-19] MEDS ORDERED: FEE PK DOSING 1 MIN EA MC ONE ×2 (12:28→18:06)
[2019-08-19] MEDS ORDERED: NS 0.9% IV PRN (13:00)
[2019-08-19] MEDS ORDERED: GENTAMICIN IV PRN (13:00)
--- NOTE | 2019-08-19 14:30 | NUR ---
ICU/RN: Pt back from radiology s/p percutaneous drain insertion in RLQ from radiology. Pt tolerated procedure well. Specimen sent to lab for culture and analysis.
--- NOTE | 2019-08-19 15:30 | NUR ---
ICU/RN: 300 cc of brown purulent drainage noted in RLQ drain. Dressing remains C/D/I. Bonita Montaño NP updated on pt status.
[2019-08-19] MEDS ORDERED: VANCOMYCIN 1 GM in IV D5W 250 ML IV PRN (18:00)
[2019-08-19] MEDS: NOREPINEPHRINE 8 MG in IV D5W 500 ML IV PRN (18:40)
--- NOTE | 2019-08-19 18:40 | NUR ---
ICU/RN: Tiffanie, HD RN at bedside; initiated dialysis. Pt baseline SBP in 90s. Noted SBP drop 77-80's. Levophed initiated, per HD RN pt required levophed during last HD session. Will titrate accordingly as ordered.
--- NOTE | 2019-08-19 19:15 | NUR ---
ICU/RN: Bedside report given to noc RN for THOMAS. HD ongoing.
[2019-08-19] MEDS ORDERED: Z GUARD REMEDY 2 OZ OINT TP PRN (19:30)
--- NOTE | 2019-08-19 19:30 | NUR ---
ICU NOTES RECEIVED PT ON VENT VIA ORAL ET-TUBE FR 7 AT 25 LIP LINE TV OF 550.FIO2 100%,A/C 24 AND 13 OF PEEP.SAT.OF 98% HD IN PROGRESS.A-LINE AND CVP ZEROED AND CALIBRATED.ON LEVOPHED DRIP [id number]/MIN.DIPRIVAN DRIP AT 40MCG/KG/MIN.MONITOR SHOWS SINUS TACH W/O ECTOPICS.
--- NOTE | 2019-08-19 19:35 | NUR ---
RT Pt received intubated on [facility] vent with noted settings. EET patent and secure. pt tolerating setting well. no distress noted at this time. Alarms set and audible. will continue to monitor. Addendum: 08/19/19 at 1937 by KELSY TORRE RT Amended: Links added.
--- NOTE | 2019-08-19 20:00 | NUR ---
ICU NOTES LT NEPHROSTOMY TUBE DRAINING MINIMAL LIGHT PINKISH DRAINAGE.FR#10 INTO THE RT ANTERIOR LOWER QUADRANT DRAINING SEROUS- SANGUINEOUS DRAINAGE MINIMAL AMT,DRESSING INTACT.
[2019-08-19 20:45] LABS: ABG BASE EXCESS -12.2 mmol/L; ABG OXYGEN SATURATION 98.3 % (92.0-98.5); ABG PCO2 30.9 mmHg (35.0-45.0); ABG PH 7.261 (7.350-7.450); AaDO2 520.1 mmHg; COHb 0.3 % (0.5-1.5); MetHb 0.7 % (0.0-1.5); O2Hb 97.3 % (94.0-97.0); PEEP,BG 13 cm H2O; SITE, ABG A-Line; VENT MODE, BG AC 28/550/100%/+13; VT, ABG 550 mL
[2019-08-19] MEDS ORDERED: VANCOMYCIN 1 GM in IV D5W 250 ML IV ONE (21:00)
[2019-08-19] MEDS: FLUCONAZOLE IN NS 100 MG in PREMIX 1 EA IV SCH ×2 (22:24)
[2019-08-19 23:00] LABS: BASOPHILS % (AUTO) 0.2 % (0.0-2.0); HEMATOCRIT 41 % (39-51); HEMOGLOBIN 13.7 g/dL (13.5-17.5); LYMPHOCYTES # (AUTO) 0.7 /CMM (0.8-4.8); MEAN CORPUSCULAR HGB CONC 34 g/dl (31.0-36.0); MEAN CORPUSCULAR VOLUME 88 fL (80-96); MONOCYTES # (AUTO) 0.4 /CMM (0.1-1.30); NEUTROPHILS # (AUTO) 10.9 /CMM (1.8-8.9); PLATELET COUNT (AUTO) 104 /CMM (150-450)
[2019-08-19 23:08] LABS: RED BLOOD CELL COUNT(AUTO) 4.41 MIL/uL (4.5-6.0); WHITE BLOOD COUNT (AUTO) 11.8 K/uL (4.3-11.0)
[2019-08-19 23:09] LABS: EOSINOPHILS % (AUTO) 0.1 % (0.0-6.0); MONOCYTES % (AUTO) 0.2 % (2.0-12.0); NEUTROPHILS % (AUTO) 96.4 % (43.0-81.0)
[2019-08-19] MEDS: MEROPENEM 500 MG in IV NS 0.9% 50 ML IV SCH (23:53)
[2019-08-20] VITALS (38 sets, daily range): BP systolic 86–150; BP diastolic 46–84
--- NOTE | 2019-08-20 | NUR ---
ICU NOTES MONITOR SINUS TACH.REMAINS ON DIPRIVAN DRIP AT 40MCG/KG/MIN.OG-TUBE DRAINING DARK GREENISH FLUID ON LIS.
[2019-08-20] MEDS: BLOOD SUGAR DIAGNOSTIC 1 EACH STRIP IN SCH ×5 (00:02→23:33)
[2019-08-20] MEDS: ACETAMINOPHEN 650 MG/SUPP.RECT RC PRN ×2 (00:12→15:49)
[2019-08-20 00:17] LABS: BAND % (MANUAL) 2 % (0.0-5.0); LYMPHOCYTES % (MANUAL) 4 % (16-48); MONOCYTES % (MANUAL) 7 % (0-11.0); NEUTROPHILS % (MANUAL) 87 (42-76)
[2019-08-20 00:21] LABS: CALCIUM, SERUM 7.5 mg/dL (8.5-10.1); CARBON DIOXIDE 18 mmol/L (21-32); CHLORIDE 106 mmol/L (98-107); CREATININE 7.3 mg/dL (0.6-1.3); GLUCOSE 160 mg/dL (74-106); POTASSIUM 5.5 mmol/L (3.5-5.1); SODIUM SERUM 140 mmol/L (136-145); UREA NITROGEN, BLOOD 62 mg/dL (7-18)
[2019-08-20] MEDS: PROPOFOL 100 ML IV PRN ×4 (02:38→21:08)
[2019-08-20 05:02] LABS: CALCIUM, SERUM 6.7 mg/dL (8.5-10.1); POTASSIUM 5.2 mmol/L (3.5-5.1)
[2019-08-20 05:21] LABS: CREATININE 7.8 mg/dL (0.6-1.3)
--- NOTE | 2019-08-20 06:00 | NUR ---
ICU NOTES LEVOPHED SLOWLY TITRATED ,NOW AT 2MCG/MIN.UNABLE TO GET CVP READING DR. BERNARDO AWARE AND CVP TO BE DC'D-DONE,CLAMPED TUBING.LT NEPHROSTOMY W/10 ML DRAINAGE,PINKISH-TINGED.PELVIS DRAINED 50ML PINKISH-TINGED
[2019-08-20 06:04] LABS: BILIRUBIN,DIRECT 0.4 mg/dL (0.0-0.2); BILIRUBIN,TOTAL 0.9 mg/dL (0.2-1.0)
--- NOTE | 2019-08-20 07:16 | NUR ---
ICU NOTES DIPRIVAN REMAINS AT 40 MCG/KG/MIN AND NOT 45MCG/KG/MIN
--- NOTE | 2019-08-20 07:20 | NUR ---
ICU NOTES REPORT AND CARE OF PT. GIVEN TO BRODIE MANN
[2019-08-20] MEDS: FAMOTIDINE/PF INJ 20 MG/2 ML VIAL IV SCH ×2 (08:02→21:01)
--- NOTE | 2019-08-20 08:30 | NUR ---
ICU/RN: Dr Perez at bedside; updated on pt status. Fluid status discussed, ordered maintenance IVF. Other orders noted and carried out.
[2019-08-20] MEDS ORDERED: VANCOMYCIN 500 MG in IV D5W 100 ML IV PRN (09:00)
[2019-08-20 09:07] LABS: BASOPHILS % (AUTO) 0.1 % (0.0-2.0); EOSINOPHILS % (AUTO) 0.3 % (0.0-6.0); HEMATOCRIT 37 % (39-51); HEMOGLOBIN 13.1 g/dL (13.5-17.5); LYMPHOCYTES # (AUTO) 0.4 /CMM (0.8-4.8); LYMPHOCYTES % (AUTO) 4.3 % (20.0-44.0); MEAN CORPUSCULAR HGB CONC 36 g/dl (31.0-36.0); MEAN CORPUSCULAR VOLUME 88 fL (80-96); MONOCYTES # (AUTO) 0.3 /CMM (0.1-1.30); MONOCYTES % (AUTO) 3.5 % (2.0-12.0); NEUTROPHILS % (AUTO) 91.8 % (43.0-81.0); PLATELET COUNT (AUTO) 96 /CMM (150-450); RED BLOOD CELL COUNT(AUTO) 4.15 MIL/uL (4.5-6.0); WHITE BLOOD COUNT (AUTO) 9.8 K/uL (4.3-11.0)
--- NOTE | 2019-08-20 09:15 | NUR ---
ICU/RN: Bonita Montaño, LANDSCAPE FOREMAN at bedside; updated on pt status, drains, abn labs. For HD today. Transfer to [facility] on hold for now.
[2019-08-20 10:00] LABS: BAND % (MANUAL) 21 % (0.0-5.0); LYMPHOCYTES % (MANUAL) 4 % (16-48); METAMYELOCYTES % 2 % (0-0); MONOCYTES % (MANUAL) 8 % (0-11.0); NEUTROPHILS % (MANUAL) 65 (42-76)
[2019-08-20] MEDS ORDERED: IV NS 0.9% 1,000 ML BAG IV PRN (10:00)
--- NOTE | 2019-08-20 10:00 | NUR ---
ICU/RN: ABGs reviewed with Dr Edward, imaging. Vent changes noted, no need to advance ETT per Dr Edward.
[2019-08-20 10:01] LABS: ABG BASE EXCESS -10.5 mmol/L; ABG OXYGEN SATURATION 98.7 % (92.0-98.5); ABG PCO2 35.8 mmHg (35.0-45.0); ABG PO2 220.9 mmHg (75.0-100.0); AaDO2 456.3 mmHg; COHb 0.3 % (0.5-1.5); MetHb 0.8 % (0.0-1.5); O2Hb 97.6 % (94.0-97.0); PEEP,BG 13 cm H2O; SITE, ABG A-Line; VT, ABG 550 mL
[2019-08-20] MEDS: IV NS 0.9% 1,000 ML IV PRN (10:26)
[2019-08-20] MEDS ORDERED: IV NS 0.9% 1,000 ML IV SCH (11:00)
--- NOTE | 2019-08-20 11:45 | NUR ---
ICU/RN: Dr Morales at bedside; updated on pt status. Per MD, pt "not a candidate for colonoscopy dt increased risk of perforation bloody gastric output likely because of trauma from intubation."
--- NOTE | 2019-08-20 12:45 | NUR ---
ICU/RN: Bonita Montaño at bedside; initiated sedation vacation. Unable to tolerate more than 20 mins off sedation, pt became tachypneic, accessory muscle use evident, facial grimacing noted. Unable to follow commands. Resume sedation per NUCLEAR CONTROL ROOM OPERATOR.
--- NOTE | 2019-08-20 14:00 | NUR ---
ICU/RN: Pt off HD. 2.5 L out, no pressor support required during HD. Vanco level at 22; hold post HD supplement per Rx Christine.
[2019-08-20] MEDS: Z GUARD REMEDY 2 OZ OINT TP PRN (14:01)
--- NOTE | 2019-08-20 16:30 | NUR ---
ICU/RN: [facility] at bedside for ID consult. Updated on pt status. Urine from nephrostomy sent to lab for cultures as ordered.
[2019-08-20] MEDS ORDERED: TPN/PPN PER PHARMACY XX PRN (17:30)
--- NOTE | 2019-08-20 17:45 | NUR ---
ICU/RN: Updated Bonita Montaño NP on phone regarding pt status. Pt now febrile, cooling measures in place, tylenol administered. Did not require pressor support during HD with 2.5L out. Total output as follows: OGT: 50cc, FC: 5cc, L nephrostomy: 50cc (cultures sent as ordered by ID), RLQ percutaneous drain: 150cc. Surgical consult recommendations reviewed regarding TPN discussed, will start tomorrow per CUSTOMER SUPPORT EXECUTIVE. Repeat CT abd not indicated at this time per surgical consult. New orders noted and carried out.
--- NOTE | 2019-08-20 18:00 | NUR ---
ICU/RN: Percutaneous drainage bag changed, set to suction.
--- NOTE | 2019-08-20 18:07 | NUR ---
RT END OF THE SHIFT NOTE. PT. 59 Y OLD MALE REC/ @ 0700 AM PT. ORALLY INTUBATED ETT # 7.0 SECURDED AT 26.5 CM LIP LINE ON VENT WITH NOTED SETTINGS, ALARMS ARE SET AND FUNCTIONAL, EQUAL CHEST RISE NOTED. B/S BILATERALLY RALES AND SUX'S FOR MINIMAL AMT. OF WHITE SECRETIONS, VENT PLUGGED INTO RED OUT LET, HME CHANGED, CUSTOMER DATA TECHNICIAN DONE, PT. REMAIN STABLE. @1048 VENT CHANGES DONE PER DR. IVANA REYEZ. RN AWARE. PT. JOANNA. WELL, AND NO DISTRESS NOTED T/O DAY, REPORT WILL PASS TO PM SHIFT. Addendum: 08/20/19 at 1810 by BROOK LY RT Amended: Links added.
[2019-08-20] MEDS: FLUCONAZOLE IN NS 100 MG in PREMIX 1 EA IV SCH ×2 (19:24)
[2019-08-20 19:51] LABS: BASOPHILS % (AUTO) 0.1 % (0.0-2.0); EOSINOPHILS % (AUTO) 0.2 % (0.0-6.0); HEMATOCRIT 35 % (39-51); HEMOGLOBIN 12.3 g/dL (13.5-17.5); LYMPHOCYTES # (AUTO) 0.4 /CMM (0.8-4.8); LYMPHOCYTES % (AUTO) 3.7 % (20.0-44.0); MEAN CORPUSCULAR HGB CONC 35 g/dl (31.0-36.0); MEAN CORPUSCULAR VOLUME 88 fL (80-96); MONOCYTES # (AUTO) 0.7 /CMM (0.1-1.30); MONOCYTES % (AUTO) 6.4 % (2.0-12.0); NEUTROPHILS # (AUTO) 10.2 /CMM (1.8-8.9); NEUTROPHILS % (AUTO) 89.6 % (43.0-81.0); PLATELET COUNT (AUTO) 77 /CMM (150-450); RED BLOOD CELL COUNT(AUTO) 4.03 MIL/uL (4.5-6.0); WHITE BLOOD COUNT (AUTO) 11.4 K/uL (4.3-11.0)
--- NOTE | 2019-08-20 20:00 | NUR ---
FIRE BOAT ENGINEER Received patient sedated on Diprivan gtt intubated to vent on full vent support with prescribed settings. Feverish 100.7 cooling measures done.Cooling blanket in place.ST per monitor 100's.On ARTERIAL and CVP monitoring.Hemodynamically stable.OGT to LIS small drainage.OGT placement verified.FC to gravity with scanty urine.Nephrostomy tube and drainage tube to gravity.NO acute distress noted.Turned and repositioned.
[2019-08-20 20:24] LABS: BILIRUBIN,TOTAL 0.9 mg/dL (0.2-1.0); CALCIUM, SERUM 7.1 mg/dL (8.5-10.1); POTASSIUM 5.1 mmol/L (3.5-5.1); TOTAL PROTEIN, SERUM 5.5 g/dL (6.4-8.2)
[2019-08-20 20:36] LABS: ALBUMIN 1.6 g/dL (3.4-5.0)
[2019-08-20] MEDS: MEROPENEM 500 MG in IV NS 0.9% 50 ML IV SCH (21:01)
[2019-08-20 21:39] LABS: BAND % (MANUAL) 7 % (0.0-5.0); LYMPHOCYTES % (MANUAL) 11 % (16-48); MONOCYTES % (MANUAL) 6 % (0-11.0); NEUTROPHILS % (MANUAL) 76 (42-76)
[2019-08-21] VITALS (40 sets, daily range): BP systolic 112–162; BP diastolic 58–83
--- NOTE | 2019-08-21 | NUR ---
Patient status unchanged.VSS.ST 100's.All IV's infusing well.Bathed and linens changed. Turned and repositioned.No acute distress noted.
[2019-08-21] MEDS: PROPOFOL 100 ML IV PRN ×4 (01:31→08:39)
[2019-08-21 04:33] LABS: EOSINOPHILS % (AUTO) 0.4 % (0.0-6.0); HEMATOCRIT 33 % (39-51); HEMOGLOBIN 11.4 g/dL (13.5-17.5); LYMPHOCYTES # (AUTO) 0.3 /CMM (0.8-4.8); LYMPHOCYTES % (AUTO) 2.4 % (20.0-44.0); MEAN CORPUSCULAR HGB CONC 34 g/dl (31.0-36.0); MEAN CORPUSCULAR VOLUME 87 fL (80-96); MONOCYTES # (AUTO) 0.2 /CMM (0.1-1.30); MONOCYTES % (AUTO) 1.9 % (2.0-12.0); NEUTROPHILS # (AUTO) 11.5 /CMM (1.8-8.9); NEUTROPHILS % (AUTO) 95.3 % (43.0-81.0); PLATELET COUNT (AUTO) 76 /CMM (150-450); RED BLOOD CELL COUNT(AUTO) 3.81 MIL/uL (4.5-6.0); WHITE BLOOD COUNT (AUTO) 12.1 K/uL (4.3-11.0)
[2019-08-21 04:51] LABS: MAGNESIUM 2.6 mg/dL (1.8-2.4); POTASSIUM 4.9 mmol/L (3.5-5.1)
[2019-08-21 04:59] LABS: CREATININE 7.5 mg/dL (0.6-1.3)
[2019-08-21] MEDS ORDERED: IV NS 0.9% 500 ML BAG IV ONE (05:00)
--- NOTE | 2019-08-21 06:00 | NUR ---
Patient resting no significant changed noted.NGT OUTPUT= 250 ml, NEPHROSTOMY TUBE OUTPUT= 20 ML,SURGICAL DRAIN OUTPUT =0, RAMÍREZ CATH OUTPUT=15 ML.With small mucoid stool.Kept clean and dry. Turned and repositioned.Diprivan gtt infusing at 40 mcg/kg/min. NAD.WILL endorse to day shift for continuity of care.
[2019-08-21] MEDS: BLOOD SUGAR DIAGNOSTIC 1 EACH STRIP IN SCH ×4 (06:25→23:02)
[2019-08-21] MEDS ORDERED: TPN BAG #2 IV PRN ×6 (07:00)
--- NOTE | 2019-08-21 07:30 | NUR ---
RN NOTES RECEIVED PATIENT ORALLY INTUBATED WITH ETT 7.5 AND 26 CM AT LIP CONNECTED TO VENT AC MODE 28 TV 550 FIO2 80% PEEP 10. TOLERATING SETTINGS WELL AT THIS TIME. SATURATION 95%. PATIENT SEDATED WITH DIPRIVAN RUNNING AT 40MCG/ MIN. ST ON TELE MONITOR WITH HR ON THE 108BPM. OGT IN PLACE AND ATTACHED TO LIS WITH COFFEE GROUND OUTPUT. NOTED WITH WITH LEFT NEPHROSTOMY TUBE. R FLANK PERCUTANEOUS SURGICAL DRAIN. IV SITE ON LAC ,CHENCHO PICC LINE WITH CVP LINE, RIGHT FEMORAL WITH A- LINE. WILL ZERO OUT AND CALIBRATE. LAC G 18 HL AND LH G 20 HL ALL IV LINE ARE INTACT AND PATENT. DRESSING CLEAN AND DRY. LEFT FEMORAL HD WITH CLEAN AND DRY DRESSING. HOB KEPT ELEVATED. SAFETY MEASURES IN PLACE. BED IN LOW AND LOCKED POSITIONED. CALL LIGHT WITHIN REACH. WILL CONTINUE TO MONITOR PATIENT CLOSELY. Addendum: 08/21/19 at 1001 by ELIE CARLTON RN ERROR IN CHARTING DISREGARD 7.5 SHOULD HAVE BEEN 7.0
[2019-08-21] MEDS: FAMOTIDINE/PF INJ 20 MG/2 ML VIAL IV SCH ×2 (08:27→20:32)
[2019-08-21] MEDS ORDERED: TPN BAG #1 IV PRN ×6 (09:00)
[2019-08-21 10:33] LABS: ABG BASE EXCESS -5.8 mmol/L; ABG OXYGEN SATURATION 98.4 % (92.0-98.5); ABG PCO2 36.7 mmHg (35.0-45.0); ABG PO2 162.6 mmHg (75.0-100.0); AaDO2 188.7 mmHg; COHb 0.3 % (0.5-1.5); MetHb 0.5 % (0.0-1.5); O2Hb 97.6 % (94.0-97.0); SITE, ABG A-Line
[2019-08-21 10:34] LABS: PEEP,BG 10 cm H2O; VT, ABG 550 mL
--- NOTE | 2019-08-21 11:00 | NUR ---
RN NOTES Daniel CALL NP AT UNIT. PATIENT SEEN AND EXAMINED. DARNELL IS AWARE THAT PERCUTANEOUS DRAINAGE WITH NO DRAIN SINCE THIS MORNING. WITH NEW ORDERS MADE. ORDERS NOTED AND CARRIED OUT
[2019-08-21] MEDS: MIDAZOLAM HCL 100 MG in IV NS 0.9% 80 ML IV PRN (11:18)
[2019-08-21] MEDS ORDERED: FEE TPN 1 MIN EA MC ONE (12:36)
--- NOTE | 2019-08-21 18:00 | NUR ---
RN NOTES >OGT STILL ON LIS SUCTION, DRAINAGE COFFEE GROUND TO BLACK. DRAINED TOTAL OF 150CC >PERCUTANEOUS DRAIN INPLACE AND INTACT. NO DRAINAGE NOTED > L SIDE NEPHROSTOMY, DRAINAGE BROWN IN COLOR, 50CC IN AMOUNT
--- NOTE | 2019-08-21 19:10 | NUR ---
RN NOTES ENDORSED FOR CONTINUITY OF CARE. NOT ON RESPIRATORY DISTRESS. PATIENT STILL SEDATED WITH VERSED AT 2MG/HR. TPN RUNNING AT 40CC/HR. PATIENT FEBRILE AT 101.6 PER LATEST CHECK, COOLING MEASURES OBSERVED. OGT STILL ON LIS SUCTIONING TO BLACK DRAIN. HOB ELEVATED. SAFETY MEASURES IN PLACE.
--- NOTE | 2019-08-21 20:10 | NUR ---
RECEIVED PT INTUBATED, 7.0 ETT SECURED VIA ANCHOR FAST AT 26CM AT THE LIP. NO RESP DISTRESS. PT TOLERATING VENT SETTINGS. ALARMS SET AND AUDIBLE. AMBU BAG AT BEDSIDE. CONTINUE [facility] VENT SUPPORT. Addendum: 08/21/19 at 2011 by ARSH HESTER RT Amended: Links added.
[2019-08-21] MEDS: FLUCONAZOLE IN NS 100 MG in PREMIX 1 EA IV SCH ×2 (20:30)
[2019-08-21] MEDS: MEROPENEM 500 MG in IV NS 0.9% 50 ML IV SCH (20:30)
[2019-08-21] MEDS ORDERED: VANCOMYCIN 1 GM in IV D5W 250 ML IV ONE (21:00)
[2019-08-22] VITALS (31 sets, daily range): BP systolic 91–160; BP diastolic 44–92
[2019-08-22 04:24] LABS: BASOPHILS # (AUTO) 0.1 /CMM (0.0-0.2); BASOPHILS % (AUTO) 0.6 % (0.0-2.0); EOSINOPHILS % (AUTO) 0.5 % (0.0-6.0); HEMATOCRIT 28 % (39-51); HEMOGLOBIN 9.5 g/dL (13.5-17.5); LYMPHOCYTES # (AUTO) 0.4 /CMM (0.8-4.8); LYMPHOCYTES % (AUTO) 3.5 % (20.0-44.0); MEAN CORPUSCULAR HGB CONC 34 g/dl (31.0-36.0); MEAN CORPUSCULAR VOLUME 87 fL (80-96); MONOCYTES # (AUTO) 0.9 /CMM (0.1-1.30); MONOCYTES % (AUTO) 7.1 % (2.0-12.0); NEUTROPHILS # (AUTO) 10.6 /CMM (1.8-8.9); NEUTROPHILS % (AUTO) 88.3 % (43.0-81.0); PLATELET COUNT (AUTO) 72 /CMM (150-450); RED BLOOD CELL COUNT(AUTO) 3.23 MIL/uL (4.5-6.0)
[2019-08-22 04:34] LABS: CALCIUM, SERUM 7.1 mg/dL (8.5-10.1); MAGNESIUM 3.1 mg/dL (1.8-2.4); POTASSIUM 4.8 mmol/L (3.5-5.1)
[2019-08-22 04:43] LABS: PHOSPHORUS 8.7 mg/dL (2.5-4.9)
[2019-08-22] MEDS: BLOOD SUGAR DIAGNOSTIC 1 EACH STRIP IN SCH ×3 (05:53→18:00)
--- NOTE | 2019-08-22 06:46 | NUR ---
COW BUYER VINAY MAX 2 BED CANCELLED AT THIS TIME PATIENT WT PER NURSING STAFF IS 208 LBS. SPECIALTY MATTRESS 1ST STEP IS ON ORDER AND TO BE PLACED WHEN AVAILABLE. ALL DISCUSSED WITH PRIMARY RN WELL CHARGE NURSE.
--- NOTE | 2019-08-22 07:15 | NUR ---
RN INITIAL NOTES RECEIVED PT INTUBATED. NO RESPIRATORY DISTRESS NOTED. NO SOB NOTED. NO SIGNS OF PAIN NOTED. PT SEDATED, ON VERSED, WILL TITRATE ACCORDINGLY. HOB ELEVATED. OG IN PLACE CONNECTED TO LOW INTERMITTENT SUCTION. CHENCHO PICC IN PLACE. TPN INFUSING. RIGHT ABDOMINAL DRAIN IN PLACE. LEFT NEPHROSTOMY TUBE INTACT. ON CVP AND ARTERIAL LINE MONITORING. LEFT HD CATH IN PLACE, DRESSING INTACT. PT REPOSITIONED. CLEAN AND DRY. COMFORTABLE. BLE ELEVATED. WILL MONITOR
--- NOTE | 2019-08-22 07:50 | NUR ---
WOUND CARE CONSULT: PT PRESENTS WITH GENERALIZED EDEMA INCLUDING SCROTAL EDEMA, RT ANTERIOR THIGH HEALING SKIN TEAR DISTAL TO DRESSING ON RT GROIN AREA, AND LEFT EAR INTACT DEEP TISSUE INJURY. PT IS INTUBATED. RECOMMENDATIONS MADE FOR SKIN PROTECTION AND WOUND CARE. DISCUSSED WITH NURSING STAFF. FIRST STEP LOW AIRLOSS MATTRESS ON ORDER. CURRENT LING SCORE IS 10. MD IN AGREEMENT WITH PLAN OF CARE. Addendum: 08/22/19 at 0754 by TAB JAFFE WNDNU Amended: Links added.
[2019-08-22] MEDS: FAMOTIDINE/PF INJ 20 MG/2 ML VIAL IV SCH ×2 (08:15→20:00)
[2019-08-22 08:22] LABS: ABG BASE EXCESS -7.4 mmol/L; ABG OXYGEN SATURATION 98.2 % (92.0-98.5); ABG PCO2 31.1 mmHg (35.0-45.0); ABG PH 7.359 (7.350-7.450); ABG PO2 160.6 mmHg (75.0-100.0); AaDO2 160.9 mmHg; COHb 0.2 % (0.5-1.5); MetHb 0.7 % (0.0-1.5); O2Hb 97.3 % (94.0-97.0); PEEP,BG 5 cm H2O; SITE, ABG A-Line; VT, ABG 550 mL
[2019-08-22] MEDS: IV NS 0.9% 1,000 ML IV PRN (08:26)
--- NOTE | 2019-08-22 10:45 | NUR ---
RN NOTES 0900 SEEN AND EXAMINED BY DR HEATH. AWARE OF CURRENT LABS, CXR AND ABG RESULT. FI02 TITRATED TO 35%. MD ORDERED CT ABDOMEN WO CONTRAST. WILL MONITOR 1030 SEEN AND EXAMINED BY CHERYL CALL NP. AWARE OF PT'S CURRENT STATUS. AWARE OF LAB VALUES AND IMAGING RESULT. AGREED TO DO CT ABDOMEN WO CONTRAST. ALL DRAINS ARE PATENT. PT OFF SEDATION. WILL CLOSELY MONITOR
--- NOTE | 2019-08-22 13:58 | NUR ---
RN NOTES CHERYL CALL CALLED REGARDING CT ABDOMEN WO CONTRAST RESULT. [facility] WILL CONSULT DR SOLEDAD CARMEN FOR POSSIBLE SURGERY. DR HEATH NOTIFIED. WILL CLOSELY MONITOR
[2019-08-22] MEDS ORDERED: TPN BAG #3 IV PRN ×6 (14:00)
[2019-08-22] MEDS ORDERED: KETAMINE HCL (500MG/10ML) 50 MG/ML VIAL ONE (15:38)
--- NOTE | 2019-08-22 16:28 | NUR ---
RN NOTES 1615 SEEN AND EXAMINED BY DR SOLEDAD CARMEN. DISCUSSED WITH ARISTIDES (DAUGHTER) THE RESULT OF CT ABDOMEN WO CONTRAST, SIGMOID BOWEL PERFORATION AND PLANNED LAPAROSCOPIC VS EXPLORE LAP. CONSENT OBTAINED FROM ARISTIDES EXPLANATION BY MD. WILL MONITOR 1627 PT LEFT TO OR FOR SURGERY. PT VS WNL. PT REMAINS INTUBATED. NO RESPIRATORY DISTRESS NOTED. PT AFEBRILE. SINUS RHYTHM ON MONITOR. CHENCHO PICC IN PLACE. ALL DRAINS IN PLACE. LEFT IN STABLE CONDITION
[2019-08-22] MEDS ORDERED: LIDOCAINE HCL/MPF 1% 30 ML VIAL IJ ONE (16:58)
[2019-08-22] MEDS ORDERED: BUPIVACAINE MPF 0.5% W/EPI INJ 30 ML VIAL ONE (16:58)
[2019-08-22] MEDS ORDERED: VASOPRESSIN INJ 20 UNIT/ML VIAL ONE (18:06)
--- NOTE | 2019-08-22 18:22 | NUR ---
RN NOTES PT STILL IN SURGERY
[2019-08-22] MEDS: FLUCONAZOLE IN NS 100 MG in PREMIX 1 EA IV SCH ×2 (19:42)
[2019-08-22] MEDS: MIDAZOLAM HCL 100 MG in IV NS 0.9% 80 ML IV PRN (19:54)
--- NOTE | 2019-08-22 20:00 | NUR ---
COMPUTER SYSTEMS INTEGRATOR - NOTES - PT CAME BACK FROM OR AT APPROX 1900, PT IS NOT AWAKE, NOTED WITH SCLERAL EDEMA, PUPILS 3 AND REACTIVE. PT IS ON VERSED @ 0.5 MG/HR. PT IS INTUBATED WITH 7.0 ETT, 26 CM @ LIP LINE WITH VENT SETTINGS AC 28 550 50% 5.0. PT SAT 98%. PT IS IN SR/ST, WITH RIGHT FEM ARTERIAL LINE, BP WNL. PT HAS OGT TO LOW INTERMITTENT SUCTION WITH GREENISH LIQUID. PT HAS 3 TERENCE DRAINS FROM ABDOMINAL SURGERY DRAINING SANGUINOUS FLUID, PT HAS A COLOSTOMY, NO DRAINING YET, PT HAS BOWEL SOUNDS PRESENT. PT HAS A F/C WITH MINIMAL ANNY OUTPUT AND LEFT NEPHROSTOMY DRAINING. PT HAS CHENCHO PICC LINE, LEFT FEM HD CATH W PIGTAIL, R FEM A LINE, LEFT HAND 20G AND LEFT AC 18, PT IS ON TPN @ 40 ML/HR AND NS @ 40 ML/HR. WILL CONTINUE TO MONITOR
[2019-08-22 20:11] LABS: ABG BASE EXCESS -10.9 mmol/L; ABG OXYGEN SATURATION 95.4 % (92.0-98.5); ABG PCO2 37.8 mmHg (35.0-45.0); ABG PH 7.238 (7.350-7.450); ABG PO2 97.3 mmHg (75.0-100.0); AaDO2 216.7 mmHg; COHb 0.3 % (0.5-1.5); MetHb 0.6 % (0.0-1.5); O2Hb 94.5 % (94.0-97.0); PEEP,BG 5 cm H2O; SITE, ABG A-Line; VT, ABG 550 mL
[2019-08-22] MEDS ORDERED: SODIUM BICARBONATE SYR 50 MEQ/50 ML DISP.SYRIN IV ONE (21:30)
--- NOTE | 2019-08-22 21:30 | NUR ---
CHERYL CALL AT BEDSIDE TO ASSESS PT AND UPDATE DAUGHTER ON PLAN OF CARE
[2019-08-22] MEDS: MEROPENEM 500 MG in IV NS 0.9% 50 ML IV SCH (21:32)
[2019-08-22] MEDS: NOREPINEPHRINE 8 MG in IV D5W 500 ML IV PRN (21:56)
--- NOTE | 2019-08-22 22:30 | NUR ---
HD ENDED, ONLY 600 ML OUT, HD PORT CLOTTED PER HD NURSE, ALTEPLASE PLACED IN HD PORT, WILL REASSESS FOR HD TOMORROW
[2019-08-22] MEDS ORDERED: ALTEPLASE CATHFLO 2 MG/VIAL ONE (22:47)
[2019-08-22 23:23] LABS: ABG OXYGEN SATURATION 98.2 % (92.0-98.5); ABG PCO2 30.8 mmHg (35.0-45.0); ABG PH 7.287 (7.350-7.450); ABG PO2 170.1 mmHg (75.0-100.0); AaDO2 151.8 mmHg; COHb 0.3 % (0.5-1.5); MetHb 0.8 % (0.0-1.5); O2Hb 97.1 % (94.0-97.0); PEEP,BG 5 cm H2O; SITE, ABG A-Line; VT, ABG 550 mL
[2019-08-23] VITALS (79 sets, daily range): BP systolic 87–148; BP diastolic 47–79
[2019-08-23] MEDS ORDERED: ALTEPLASE CATHFLO 2 MG/VIAL XX ONE
[2019-08-23] MEDS: BLOOD SUGAR DIAGNOSTIC 1 EACH STRIP IN SCH ×3 (00:09→12:07)
--- NOTE | 2019-08-23 00:20 | NUR ---
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
[2019-08-23] MEDS ORDERED: SODIUM BICARBONATE SYR 50 MEQ/50 ML DISP.SYRIN IV ONE (00:30)
[2019-08-23 00:38] LABS: BASOPHILS % (AUTO) 0.2 % (0.0-2.0); EOSINOPHILS % (AUTO) 0.3 % (0.0-6.0); HEMATOCRIT 31 % (39-51); HEMOGLOBIN 10.5 g/dL (13.5-17.5); LYMPHOCYTES # (AUTO) 0.4 /CMM (0.8-4.8); MEAN CORPUSCULAR HGB CONC 34 g/dl (31.0-36.0); MEAN CORPUSCULAR VOLUME 86 fL (80-96); MONOCYTES # (AUTO) 0.7 /CMM (0.1-1.30); MONOCYTES % (AUTO) 4.8 % (2.0-12.0); NEUTROPHILS % (AUTO) 91.7 % (43.0-81.0); PLATELET COUNT (AUTO) 95 /CMM (150-450); RED BLOOD CELL COUNT(AUTO) 3.61 MIL/uL (4.5-6.0); WHITE BLOOD COUNT (AUTO) 14.1 K/uL (4.3-11.0)
[2019-08-23 00:51] LABS: CALCIUM, SERUM 6.8 mg/dL (8.5-10.1); TOTAL PROTEIN, SERUM 4.7 g/dL (6.4-8.2)
[2019-08-23 00:55] LABS: ALBUMIN 1.3 g/dL (3.4-5.0); CREATININE 9.4 mg/dL (0.6-1.3); POTASSIUM 6.4 mmol/L (3.5-5.1)
[2019-08-23] MEDS ORDERED: Calcium Gluconate 0.465 MEQ/ML VIAL IV ONE ×2 (01:23→01:30)
[2019-08-23] MEDS ORDERED: INSULIN REGULAR, HUMAN 100 UNIT/ML 3 ML VIAL ONE (01:27)
[2019-08-23] MEDS ORDERED: INSULIN REGULAR, HUMAN 100 UNIT/ML 3 ML VIAL SQ ONE (01:30)
[2019-08-23] MEDS ORDERED: DEXTROSE 50%-WATER 50 ML DISP.SYRIN IVP ONE (01:30)
[2019-08-23] MEDS ORDERED: Calcium Gluconate 1GM/10ML 4.65 MEQ in IV NS 0.9% 40 ML IV ONE (01:30)
[2019-08-23 01:36] LABS: LYMPHOCYTES % (MANUAL) 7 % (16-48); MONOCYTES % (MANUAL) 5 % (0-11.0); NEUTROPHILS % (MANUAL) 88 (42-76)
[2019-08-23] MEDS ORDERED: INSULIN REGULAR, HUMAN 100 UNIT/ML 3 ML VIAL IV ONE (02:00)
[2019-08-23] MEDS: IV NS 0.9% 250 ML IV PRN (02:18)
[2019-08-23 04:27] LABS: BASOPHILS % (AUTO) 0.2 % (0.0-2.0); EOSINOPHILS % (AUTO) 0.3 % (0.0-6.0); HEMATOCRIT 29 % (39-51); HEMOGLOBIN 9.8 g/dL (13.5-17.5); LYMPHOCYTES # (AUTO) 0.4 /CMM (0.8-4.8); LYMPHOCYTES % (AUTO) 3.3 % (20.0-44.0); MEAN CORPUSCULAR HGB CONC 34 g/dl (31.0-36.0); MEAN CORPUSCULAR VOLUME 87 fL (80-96); MONOCYTES % (AUTO) 0.3 % (2.0-12.0); NEUTROPHILS # (AUTO) 11.1 /CMM (1.8-8.9); NEUTROPHILS % (AUTO) 95.9 % (43.0-81.0); PLATELET COUNT (AUTO) 97 /CMM (150-450); RED BLOOD CELL COUNT(AUTO) 3.31 MIL/uL (4.5-6.0); WHITE BLOOD COUNT (AUTO) 11.6 K/uL (4.3-11.0)
[2019-08-23 04:55] LABS: CALCIUM, SERUM 7.2 mg/dL (8.5-10.1); MAGNESIUM 3.4 mg/dL (1.8-2.4); POTASSIUM 6.1 mmol/L (3.5-5.1)
[2019-08-23 05:36] LABS: CREATININE 9.7 mg/dL (0.6-1.3); PHOSPHORUS 10.1 mg/dL (2.5-4.9)
[2019-08-23 06:02] LABS: ABG BASE EXCESS -8.5 mmol/L; ABG OXYGEN SATURATION 97.1 % (92.0-98.5); ABG PCO2 30.4 mmHg (35.0-45.0); ABG PH 7.342 (7.350-7.450); ABG PO2 119.7 mmHg (75.0-100.0); AaDO2 130.5 mmHg; COHb 0.3 % (0.5-1.5); MetHb 0.8 % (0.0-1.5); PEEP,BG 5 cm H2O; SITE, ABG A-Line; VT, ABG 550 mL
--- NOTE | 2019-08-23 06:50 | NUR ---
RN CLOSING NOTES - PT ON VERSED 2 MG/HR, NS @ 40 ML/HR, TPN @ 40 ML/HR. PT IS SEDATED, FULL CHG BED BATH GIVEN, SBP VIA A LINE > 90. PT STILL ON VENT FIO2 40%. PT IS ST HR 100S. PT STILL WITH OGT TO LIS WITH 550 ML GREENISH LIQUID OUT, 0 OUT FROM COLOSTOMY, NO BM. FROM LEFT NEPHROSTOMY 180 ML OUT YELLOW WITH BROWN SEDIMENT, RAMÍREZ 30 ML OUT ANNY. PT WITH TERENCE DRAIN #1 - 320 ML SANGUINEOUS, TERENCE DRAIN #2 - 70 ML OUT SEROSANGUINEOUS, TERENCE DRAIN # 3 - 100 ML SANGUINEOUS OUT
[2019-08-23] MEDS: FAMOTIDINE/PF INJ 20 MG/2 ML VIAL IV SCH ×2 (08:19→21:10)
[2019-08-23] MEDS ORDERED: FEE PK DOSING 1 MIN EA MC ONE (08:38)
[2019-08-23 11:18] LABS: BILIRUBIN,TOTAL 1.4 mg/dL (0.2-1.0); CALCIUM, SERUM 6.8 mg/dL (8.5-10.1); POTASSIUM 6.1 mmol/L (3.5-5.1); TOTAL PROTEIN, SERUM 4.8 g/dL (6.4-8.2)
[2019-08-23] MEDS: ALBUMIN 25% 25 GM in PREMIX 1 EA IV SCH ×4 (11:19→16:38)
[2019-08-23 11:42] LABS: ALBUMIN 1.3 g/dL (3.4-5.0); CREATININE 10.4 mg/dL (0.6-1.3)
[2019-08-23] MEDS: IV NS 0.9% 1,000 ML IV PRN (12:25)
--- NOTE | 2019-08-23 12:33 | NUR ---
RN NOTE 0715: Received patient sedated with Versed. With ETT to vent, tolerated settings at this time. No respiratory distress noted. With OGT intact, to LIS, noted with minimal dark brown. With CHENCHO PICC intact, IVF infusing NS @ 40, TPN @ 40, Versed at 2mg. Levo is off at this time, will monitor BP. With Right femoral A-line, SBP >90's at this time. With left femoral HD cath intact. Acuña cath intact, noted with very minimal almost no amount of urine, noted with freeman colored urine on the tubing, patient is on daily HD. With left nephrostomy tube, noted with delma colored urine drained to BSD. With 2 right side TERENCE drains draining sanguinous, copious amount and 1 left TERENCE drain with minimal amount of sanguineous. With LLQ colostomy, no discharge noted yet. 0800: S/E by Dr. Ott, aware for labs, CVP 11. Awaiting another HD for today. Restarted Levo @ 1mcg for noted with SBP 80's on A-line. Noted with temp 100.5, cooling measures rendered. 0830: S/E by Zayra COIN MACHINE COLLECTOR SUPERVISOR, aware for colostomy no discharge yet. Patient is on OGT LIS and TPN, no oral/GT intake. 0915: S/E by Dr. Edward, Tammy daughter at bedside, aware for the POC. 0930: S/E by Khushboo COIN MACHINE COLLECTOR SUPERVISOR, with order of labs for tomorrow. 0945: S/E by Danyel COIN MACHINE COLLECTOR SUPERVISOR, with order to do repeat labs now before HD. 1100: HD nurse at bedside, aware for the repeat labs. Started on HD. 1230: HD ongoing, Alb 2 doses given with HD for low alb level 1.3. Changed TPN to bag # 3, verified with pharmacy for # 2 and # 3 with MVI, verified components with another nurse.
--- NOTE | 2019-08-23 14:33 | NUR ---
RN NOTE Jovanna brandon on am was 21, before HD, verified with pharmacy, said to hold dose for today.
[2019-08-23] MEDS: MIDAZOLAM HCL 100 MG in IV NS 0.9% 80 ML IV PRN (16:57)
--- NOTE | 2019-08-23 18:34 | NUR ---
RN NOTE After HD at 1600: Able to hold Levo for SBP >100, will continue to monitor if tolerated without pressor. HD nurse reported 1500mL out. All lines are stable. Changed colostomy bag to be able to change abdominal dressings. Noted with very minimal amount about 10mL of tarry/dark green from colostomy. Rendered abdominal Sx site treatments with swabbing with Betadine, changed to new surgical dressing. Changed right femoral Kimberly dressing. CVP reading 9 after HD. Left nephrostomy noted with delma colored urine 60mL/ No urine from jay cath, only about 10mL freeman colored urine. OGT to LIS, noted with dark green/black residuals, 300mL. Now ST 90's, ST 110-120's prior to HD. TPN at 40, NS at 40 And Versed at 2mg ongoing in the [facility] PICC. Now afebrile 97.7, was febrile 100.5 prior to HD. Still no much movement on arms, DCd WINCHMAN/CRANE OPERATOR restraints. Noted with facial grimace when turning or rendering wound care. # TERENCE draines intact, noted with TERENCE #1(RLQ) serosanguineously 175mL, TERENCE #2 (RUQ) 110mL serous and TERENCE #3 LUQ serous 38mL. Will endorse to next shift.
[2019-08-23] MEDS: FLUCONAZOLE IN NS 100 MG in PREMIX 1 EA IV SCH ×2 (19:28)
--- NOTE | 2019-08-23 19:30 | NUR ---
ICU NOTES RECEIVED PT SEDATED ON VERSED DRIP AT 2MG/HR.INTUBATED ON 40% FIO2 A/C28,VT 55O AND 5CM PEEP,SAT.OF 100%.MONITOR SHOWS NSR. 2 J-P DRAIN ON RT.LLQ AND RT UPPER QUADRANT.3RD J-P DRAIN TO LT.UPPER QUADRANT ALL DRAINING SEROUS SANGUINEOUS DRAINAGE.LT COLOSTOMY BAG INTACT,NO DRAINAGE,STOMA RED AND CLEAN,RAMÍREZ W/OUT DRAINAGE.O.G.T DRAINING DARK GREENISH FLUID.ABDOMINAL DRESSING INTACT,W/MEPILEX.A-LINE AND CVP LINE CALIBRATED AND ZEROED.
[2019-08-23] MEDS: MEROPENEM 500 MG in IV NS 0.9% 50 ML IV SCH (20:31)
[2019-08-24] VITALS (54 sets, daily range): BP systolic 99–196; BP diastolic 52–117
[2019-08-24] MEDS ORDERED: IV D5W 500 ML IV PRN (00:30)
[2019-08-24] MEDS: IV NS 0.9% 250 ML IV PRN ×2 (00:46→23:48)
--- NOTE | 2019-08-24 02:00 | NUR ---
ICU NOTES LT NEPHROSTOMY TUBE DRAINING DARK ANNY URINE,50ML SINCE .OGT CONTINUES TO DRAIN DARK GREENIS FLUID.
[2019-08-24 04:24] LABS: BASOPHILS % (AUTO) 0.4 % (0.0-2.0); EOSINOPHILS % (AUTO) 0.8 % (0.0-6.0); LYMPHOCYTES # (AUTO) 0.6 /CMM (0.8-4.8); LYMPHOCYTES % (AUTO) 5.2 % (20.0-44.0); MEAN CORPUSCULAR HGB CONC 34 g/dl (31.0-36.0); MEAN CORPUSCULAR VOLUME 87 fL (80-96); MONOCYTES # (AUTO) 0.9 /CMM (0.1-1.30); MONOCYTES % (AUTO) 7.2 % (2.0-12.0); NEUTROPHILS # (AUTO) 10.6 /CMM (1.8-8.9); NEUTROPHILS % (AUTO) 86.4 % (43.0-81.0); PLATELET COUNT (AUTO) 119 /CMM (150-450); RED BLOOD CELL COUNT(AUTO) 2.13 MIL/uL (4.5-6.0); WHITE BLOOD COUNT (AUTO) 12.2 K/uL (4.3-11.0)
[2019-08-24 04:40] LABS: CALCIUM, SERUM 7.6 mg/dL (8.5-10.1); MAGNESIUM 3.2 mg/dL (1.8-2.4); PHOSPHORUS 5.7 mg/dL (2.5-4.9); POTASSIUM 4.1 mmol/L (3.5-5.1)
[2019-08-24 04:41] LABS: CREATININE 8.1 mg/dL (0.6-1.3)
--- NOTE | 2019-08-24 06:00 | NUR ---
ICU NOTES J-P#1=80ML,J-P#2=65ML,J-P#3=120 SEROUS DRAINAGE J-P! &2 SEROUS SANGUINEOUS DRAINAGE,OGT W/ DARK GREEN DRAINAGE.NO SIGN OF OVERT BLEEDING,ABDOMEN REMAINS DISTENDED,NO BOWEL SOUNDS.ABDOMINAL DRESSING [INTACT] W/ MEPILEX.
--- NOTE | 2019-08-24 06:00 | NUR ---
ICU NOTES APRESOLINE 20 MG SLOW IVP FOR BP OF 176/81.MONITOR SINUS TACH Addendum: 08/24/19 at 0610 by MATHEUS DONOVAN RN ABOVE NOTES CHARTED ON WRONG PATIENT
[2019-08-24 06:06] LABS: HEMATOCRIT 18 % (39-51); HEMOGLOBIN 6.3 g/dL (13.5-17.5)
[2019-08-24 06:08] LABS: LYMPHOCYTES % (MANUAL) 5 % (16-48); MONOCYTES % (MANUAL) 2 % (0-11.0); NEUTROPHILS % (MANUAL) 93 (42-76)
--- NOTE | 2019-08-24 07:10 | NUR ---
ICU NOTES REPORT AND CARE OF PT. GIVEN TO ISRAEL MANN.
--- NOTE | 2019-08-24 07:30 | NUR ---
HOURLY SALES STAFF INITIAL RECEIVED PATIENT SEDATED. RESPONSIVE TO PAIN. NO RESPIRATORY DISTRESS NOTED. NO S/S OF PAIN OR DISCOMFORT. WITH ETT 7.0/26 CM AT THE LIP TOLERATING CURRENT VENT SETTINGS AC 28, VT 550, FIO2 40%, PEEP 5. ON TELE MONITOR SINUS TACH. WITH OGT IN PLACE, ON LIS, DARK GREEN OUTPUT. WITH CHENCHO PICC LINE PATENT AND INTACT, WITH IVF RUNNING, CVP, AND TPN. VERSED RUNNING AT 2MG/HR. LEFT FEM HD CATH IN PLACE. RIGHT FEM JAD IN PLACE AND ZEROED. NOTED WITH ABD INCISION WITH DRY DRESSING IN PLACE. THREE TERENCE DRAINS NOTED #1 AND #3 SEROSANGUINEOUS AND #2 SEROUS OUTPUT NOTED. LEFT NEPHROSTOMY TUBE NOTED WITH YELLOW OUTPUT. F/C IN PLACE DRAINING BY GRAVITY. HOB ELEVATED. SIDE RAILS UP AND LOCKED. BED KEPT AT LOWEST POSITION. CALL LIGHT KEPT WITHIN EASY REACH. WILL CONTINUE TO MONITOR.
[2019-08-24] MEDS ORDERED: TPN BAG #4 IV PRN ×6 (08:00)
[2019-08-24] MEDS: FAMOTIDINE/PF INJ 20 MG/2 ML VIAL IV SCH ×2 (09:07→21:15)
[2019-08-24 11:29] LABS: HEMOGLOBIN 6.3 g/dL (13.5-17.5)
[2019-08-24] MEDS ORDERED: IV NS 0.9% 250 ML IV ONE (11:45)
[2019-08-24] MEDS ORDERED: IOHEXOL-300 100 ML VIAL IV ONE (11:45)
[2019-08-24] MEDS ORDERED: CT SWABBABLE VALVE TRANS SET 1 EA INFUS.SET MC ONE (11:46)
[2019-08-24] MEDS ORDERED: TPN BAG #5 IV PRN ×5 (12:30)
[2019-08-24] MEDS ORDERED: DEXTROSE 50%-WATER 50 ML DISP.SYRIN IV PRN (13:00)
--- NOTE | 2019-08-24 13:18 | NUR ---
CAR RESTORER NOTE HD NURSE AT BEDSIDE. BLOOD TRANSFUSING. WILL CONTINUE TO MONITOR.
--- NOTE | 2019-08-24 14:26 | NUR ---
RELAYED CT REPORT TO SANTA CACERES
[2019-08-24] MEDS ORDERED: Calcium Gluconate 0.465 MEQ/ML VIAL IV ONE (15:00)
[2019-08-24] MEDS ORDERED: DESMOPRESSIN 20 MCG in IV NS 0.9% 50 ML IV ONE (15:00)
[2019-08-24] MEDS ORDERED: Magnesium 1GM/D5W 100ML PREMIX 100 ML IV SCH (15:00)
[2019-08-24] MEDS: IV NS 0.9% 1,000 ML IV PRN (15:06)
[2019-08-24] MEDS: MORPHINE SULFATE INJ 2 MG/ML DISP.SYRIN IV PRN ×2 (15:14→20:12)
--- NOTE | 2019-08-24 15:20 | NUR ---
HARDBOARD PRESS OPERATOR NOTE HD COMPLETED 2100 OUT. DAUGHTER AT BEDSIDE. WILL CONTINUE TO MONITOR.
[2019-08-24 15:22] LABS: HEMOGLOBIN 10.4 g/dL (13.5-17.5)
[2019-08-24 15:52] LABS: PLATELET COUNT (AUTO) 154 /CMM (150-450)
--- NOTE | 2019-08-24 17:19 | NUR ---
OPERATIONS DEVELOPER NOTE S/P PLASMA NO TRANSFUSION REACTION NOTED.
[2019-08-24] MEDS: BLOOD SUGAR DIAGNOSTIC 1 EACH STRIP IN SCH (17:31)
[2019-08-24] MEDS: INSULIN REGULAR, HUMAN 100 UNIT/ML 3 ML VIAL SQ PRN (17:32)
[2019-08-24 18:23] LABS: CALCIUM, SERUM 8.7 mg/dL (8.5-10.1); POTASSIUM 4.3 mmol/L (3.5-5.1)
[2019-08-24] MEDS: VANCOMYCIN 500 MG in IV D5W 100 ML IV PRN (18:34)
[2019-08-24 18:38] LABS: D-DIMER > 35.20 mg/L(FEU (0.17-0.50)
--- NOTE | 2019-08-24 19:49 | NUR ---
RECEIVED PT ORALLY INTUBATED WITH 7.0 ETT SECURED VIA ANCHOR FAST AT 26CM AT THE LIP. NO RESP DISTRESS. PT TOLERATING VENT SETTINGS. PT IS SEDATED. VENT ALARMS SET AND AUDIBLE. AMBU BAG AT BEDSIDE. WILL CONTINUE TO MONITOR T/O SHIFT
--- NOTE | 2019-08-24 19:50 | NUR ---
FIELD DIRECTOR CLOSING NOTE NO SIGNIFICANT CHANGE. NO RESPIRATORY DISTRESS NOTED. TOLERATING CURRENT VENT SETTINGS. ETT IN PLACE. OGT IN PLACE, WITH GREEN OUTPUT ON LIS. WITH ABDOMINAL DRESSING DRY AND INTACT, [address] TERENCE #1 AND # 3 SEROSANGUINEOUS AND #2 SEROUS. LEFT NEPHROSTOMY TUBE IN PLACE. LEFT COLOSTOMY IN PLACE. F/C PATENT, MINIMAL OUTPUT NOTED. CHENCHO PICC LINE PATENT AND INTACT, WITH CVP, TPN, AND IVF. PATIENT TOLERATED 2 PRBC TRANSFUSION AND 1 PLASMA TRANSFUSION. HAD HD WITH NO COMPLICATIONS. VERSED TURNED OFF PER MD BUT ONLY RESPONSIVE TO PAIN AND DOES NOT FOLLOW COMMANDS. BILATERAL WRIST RESTRAINTS IN PLACE FOR SAFETY TO PREVENT ACCIDENTAL PULLING. HOB ELEVATED. SIDE RAILS UP AND LOCKED. BED KEPT AT LOWEST POSITION. KEPT CLEAN AND DRY. TURNED AND REPOSITIONED Q2 AND PRN. CONTINUITY OF CARE ENDORSED TO PM NURSE.
--- NOTE | 2019-08-24 20:45 | NUR ---
CATERING COOK. INITIAL ASSESSMENT. RECEIVED THE PT REST ON THE BED. ORALLY INTUBATED. PT WADE LOWER EXTREMITY MOVING BLOOD PRESSURE AND HEART RATE WENT UP. MORPHINE GIVEN PER ORDERED.ETT 7,LIP 26AC 28, TV 550,FIO2 40%PEEP 5. SAT 96%. LEAD ADVISOR SHOWING S TACH. OGT LOW INTERMITTENT SUCTION. FC PATENT. NEPHROSTOMY TUBE INTACT. ABDOMENAL DRESSING INTACT. 3 TERENCE DRAIN. IV RT FEMORAL TLC,LT FEMORAL HD CATH. RT UPPER ARM PICC LINE. CVP AND JAD INTACT, TPN 40ML/H.NS 40ML/H. HOB ELEVATED. WADE SOFT WRIST RESTRAINT CHECKED AND RELEASED. NO INJURY OR REDNESS NOTED. TEMPERATURE 99.8 WILL CONTINUE TO MONITOR VITALS.
[2019-08-24 21:15] LABS: HEMOGLOBIN 8.7 g/dL (13.5-17.5)
[2019-08-24] MEDS: MEROPENEM 500 MG in IV NS 0.9% 50 ML IV SCH (21:15)
[2019-08-24] MEDS: ACETAMINOPHEN 650 MG/SUPP.RECT RC PRN (21:15)
[2019-08-24] MEDS: FLUCONAZOLE IN NS 100 MG in PREMIX 1 EA IV SCH ×2 (21:15)
[2019-08-24 21:23] LABS: CALCIUM, SERUM 8.5 mg/dL (8.5-10.1); CREATININE 6.5 mg/dL (0.6-1.3); POTASSIUM 4.3 mmol/L (3.5-5.1)
[2019-08-24] MEDS ORDERED: MIDAZOLAM HCL 2 MG/2ML VIAL ONE ×2 (22:51→23:03)
[2019-08-24] MEDS ORDERED: NS 0.9% IV ONE (23:30)
[2019-08-24] MEDS ORDERED: MIDAZOLAM HCL IV ONE (23:30)
[2019-08-25] VITALS (71 sets, daily range): BP systolic 96–185; BP diastolic 52–113
[2019-08-25] MEDS: INSULIN REGULAR, HUMAN 100 UNIT/ML 3 ML VIAL SQ PRN ×3 (01:52→12:10)
[2019-08-25] MEDS: BLOOD SUGAR DIAGNOSTIC 1 EACH STRIP IN SCH ×4 (01:53→17:15)
[2019-08-25] MEDS: MORPHINE SULFATE INJ 2 MG/ML DISP.SYRIN IV PRN ×2 (03:11→08:48)
--- NOTE | 2019-08-25 04:43 | NUR ---
EHS ENGINEER. AM CARE, ORAL CARE, BED BATH GIVEN. LINEN CHANGED. REMAINING SAME VENT SETTING TOLERATED WELL.SAT 98%. NO ACUTE DISTRESS NOTED. MAPLE SUGAR MAKER SHOWING S TACH. HOB ELEVATED, OGT LOW INTERMITTENT SUCTION. FC PATENT. J P DRAIN INTACT, IV RT FEMORAL AND RT UPPER ARM PICC LINE. VERSED 1MCG/H. NS 40ML/H.TPN 40ML/H. HOB ELEVATED, TURN AND REPOSITION Q2H. WILL CONTINUE TO MONITOR VITALS.
[2019-08-25 04:57] LABS: BASOPHILS % (AUTO) 0.3 % (0.0-2.0); EOSINOPHILS % (AUTO) 0.5 % (0.0-6.0); HEMATOCRIT 24 % (39-51); HEMOGLOBIN 8.3 g/dL (13.5-17.5); LYMPHOCYTES # (AUTO) 0.6 /CMM (0.8-4.8); LYMPHOCYTES % (AUTO) 4.2 % (20.0-44.0); MEAN CORPUSCULAR HGB CONC 34 g/dl (31.0-36.0); MEAN CORPUSCULAR VOLUME 87 fL (80-96); MONOCYTES # (AUTO) 1.3 /CMM (0.1-1.30); MONOCYTES % (AUTO) 8.4 % (2.0-12.0); NEUTROPHILS # (AUTO) 13.2 /CMM (1.8-8.9); NEUTROPHILS % (AUTO) 86.6 % (43.0-81.0); PLATELET COUNT (AUTO) 190 /CMM (150-450); RED BLOOD CELL COUNT(AUTO) 2.79 MIL/uL (4.5-6.0); WHITE BLOOD COUNT (AUTO) 15.3 K/uL (4.3-11.0)
[2019-08-25 05:13] LABS: CALCIUM, SERUM 8.4 mg/dL (8.5-10.1); MAGNESIUM 2.8 mg/dL (1.8-2.4); PHOSPHORUS 4.6 mg/dL (2.5-4.9)
--- NOTE | 2019-08-25 06:21 | NUR ---
HISTOLOGY MANAGER. DRAIN #1 40 ML} DRAIN #2 20 ML} TOTAL DRAIN #3 50 }
--- NOTE | 2019-08-25 07:01 | NUR ---
TEACHER RESOURCE. VERSED RESTARTED PT HEART RATE AND BP WENT UP
--- NOTE | 2019-08-25 07:30 | NUR ---
TOURIST INFORMATION OFFICER AM NOTES: RECEIVED PATIENT SEDATED. RESPONSIVE TO PAIN. NO RESPIRATORY DISTRESS NOTED. NO S/S OF PAIN OR DISCOMFORT. WITH ETT 7.0/26 CM AT THE LIP TOLERATING CURRENT VENT SETTINGS AC 28, VT 550, FIO2 40%, PEEP 5. SINUS TACH ON TELE MONITOR. WITH OGT IN PLACE, ON LIS, DARK GREEN OUTPUT ON TUBING ONLY. WITH CHENCHO PICC LINE PATENT AND INTACT, WITH IVF RUNNING, CVP, AND TPN. VERSED RUNNING AT 1MG/HR. LEFT FEM HD CATH IN PLACE. RIGHT FEM JAD IN PLACE AND ZEROED. NOTED WITH ABD INCISION WITH DRY DRESSING IN PLACE. THREE TERENCE DRAINS NOTED #1 AND #3 SEROSANGUINEOUS AND #2 SEROUS OUTPUT NOTED. LEFT NEPHROSTOMY TUBE NOTED WITH YELLOW OUTPUT. F/C IN PLACE DRAINING BY GRAVITY. HOB ELEVATED. SIDE RAILS UP AND LOCKED. BED KEPT AT LOWEST POSITION. CALL LIGHT KEPT WITHIN EASY REACH. WILL CONTINUE TO MONITOR.
[2019-08-25] MEDS: FAMOTIDINE/PF INJ 20 MG/2 ML VIAL IV SCH ×2 (08:31→21:20)
[2019-08-25] MEDS: NITROGLYCERIN 30 GM TUBE TP SCH ×2 (08:35→21:21)
[2019-08-25 08:45] LABS: CALCIUM, SERUM 7.8 mg/dL (8.5-10.1); CREATININE 7.3 mg/dL (0.6-1.3); POTASSIUM 3.9 mmol/L (3.5-5.1)
[2019-08-25 08:48] LABS: HEMOGLOBIN 8.2 g/dL (13.5-17.5)
--- NOTE | 2019-08-25 09:30 | NUR ---
RN NOTES DUE MEDS GIVEN
--- NOTE | 2019-08-25 10:00 | NUR ---
RN NOTES VERSED INCREASED TO 2MG
[2019-08-25 10:02] LABS: ABG BASE EXCESS 1.5 mmol/L; ABG OXYGEN SATURATION 97.8 % (92.0-98.5); ABG PH 7.521 (7.350-7.450); ABG PO2 135.5 mmHg (75.0-100.0); AaDO2 115.2 mmHg; COHb 0.3 % (0.5-1.5); MetHb 0.9 % (0.0-1.5); O2Hb 96.6 % (94.0-97.0); SITE, ABG A-Line
--- NOTE | 2019-08-25 10:40 | NUR ---
RN NOTES VERSED INCREASED TO 3MG.
[2019-08-25] MEDS: ACETAMINOPHEN 650 MG/SUPP.RECT RC PRN (10:58)
[2019-08-25] MEDS: MIDAZOLAM HCL 100 MG in IV NS 0.9% 80 ML IV PRN (10:58)
[2019-08-25 14:32] LABS: HEMOGLOBIN 7.8 g/dL (13.5-17.5)
[2019-08-25 14:43] LABS: CALCIUM, SERUM 7.5 mg/dL (8.5-10.1); POTASSIUM 3.9 mmol/L (3.5-5.1)
[2019-08-25 14:46] LABS: CREATININE 7.7 mg/dL (0.6-1.3)
--- NOTE | 2019-08-25 16:00 | NUR ---
RN NOTES ILAN HD NURSE AT BEDSIDE.
--- NOTE | 2019-08-25 19:36 | NUR ---
RIM ROLLER OPERATOR CLOSING NOTES: PATIENT SEDATED. RESPOND TO PAIN. NO RESPIRATORY DISTRESS NOTED. NO S/S OF PAIN OR DISCOMFORT. WITH ETT 7.0/26 CM AT THE LIP TOLERATING CURRENT VENT SETTINGS AC 28, VT 550, FIO2 40%, PEEP 5. SR ON TELE MONITOR. WITH OGT IN PLACE, ON LIS, DARK GREEN OUTPUT ON TUBING ONLY. WITH CHENCHO PICC LINE PATENT AND INTACT, WITH CVP, AND TPN. VERSED RUNNING AT 3MG/HR. LEFT FEM HD CATH IN PLACE. RIGHT FEM JAD IN PLACE AND ZEROED. NOTED WITH ABD INCISION WITH DRY DRESSING IN PLACE. THREE TERENCE DRAINS NOTED #1 AND #3 SEROSANGUINEOUS AND #2 SEROUS OUTPUT NOTED. LEFT NEPHROSTOMY TUBE NOTED WITH YELLOW OUTPUT. F/C IN PLACE DRAINING BY GRAVITY. HOB ELEVATED. SIDE RAILS UP AND LOCKED. BED KEPT AT LOWEST POSITION. TURNED AND REPOSITIONED Q 2 HOURS. RESTRAINTS RELEASED AND CHECKED FOR CIRCULATION Q 2 HOURS. ALL NEEDS MET AT HIS TIME. NO OTHER SIGNIFICANT CHANGE IN CONDITION. CALL LIGHT KEPT WITHIN EASY REACH. ENDORSED TO NEXT SHIFT FOR THOMAS. TOTAL OUTPUT RECORDED: NEPHROSTOMY - 580 ML ORAL GT TO LIS - ON TUBING ONLY [EST 15 ML] RAMÍREZ - 240 ML DRAIN #1 - 40ML #2 - 45ML #3 - 75ML COLOSTOMY - 10 ML HD - 400ML ELIQUIS HELD TODAY [72 HOURS MORE] UNTIL US GUIDED THORACENTESIS PER DR. HEATH
[2019-08-25 20:01] LABS: HEMOGLOBIN 7.7 g/dL (13.5-17.5)
[2019-08-25] MEDS: VANCOMYCIN 500 MG in IV D5W 100 ML IV PRN (20:19)
[2019-08-25] MEDS: FLUCONAZOLE IN NS 100 MG in PREMIX 1 EA IV SCH ×2 (20:23)
[2019-08-25] MEDS: MEROPENEM 500 MG in IV NS 0.9% 50 ML IV SCH (21:20)
[2019-08-26] VITALS (64 sets, daily range): BP systolic 89–178; BP diastolic 50–93
[2019-08-26] MEDS: BLOOD SUGAR DIAGNOSTIC 1 EACH STRIP IN SCH ×4 (00:40→17:47)
[2019-08-26] MEDS: MORPHINE SULFATE INJ 2 MG/ML DISP.SYRIN IV PRN ×2 (00:40→04:44)
[2019-08-26] MEDS: INSULIN REGULAR, HUMAN 100 UNIT/ML 3 ML VIAL SQ PRN ×4 (00:56→17:47)
[2019-08-26 02:25] LABS: HEMOGLOBIN 7.8 g/dL (13.5-17.5)
[2019-08-26 04:51] LABS: BASOPHILS % (AUTO) 0.1 % (0.0-2.0); EOSINOPHILS % (AUTO) 0.7 % (0.0-6.0); HEMATOCRIT 23 % (39-51); HEMOGLOBIN 7.9 g/dL (13.5-17.5); LYMPHOCYTES # (AUTO) 0.6 /CMM (0.8-4.8); LYMPHOCYTES % (AUTO) 3.7 % (20.0-44.0); MEAN CORPUSCULAR HGB CONC 34 g/dl (31.0-36.0); MEAN CORPUSCULAR VOLUME 88 fL (80-96); MONOCYTES # (AUTO) 1.5 /CMM (0.1-1.30); MONOCYTES % (AUTO) 9.6 % (2.0-12.0); NEUTROPHILS # (AUTO) 13.5 /CMM (1.8-8.9); NEUTROPHILS % (AUTO) 85.9 % (43.0-81.0); PLATELET COUNT (AUTO) 252 /CMM (150-450); RED BLOOD CELL COUNT(AUTO) 2.65 MIL/uL (4.5-6.0); WHITE BLOOD COUNT (AUTO) 15.8 K/uL (4.3-11.0)
[2019-08-26 05:06] LABS: CALCIUM, SERUM 7.6 mg/dL (8.5-10.1); CREATININE 6.1 mg/dL (0.6-1.3); MAGNESIUM 2.4 mg/dL (1.8-2.4); PHOSPHORUS 3.5 mg/dL (2.5-4.9); POTASSIUM 3.9 mmol/L (3.5-5.1)
[2019-08-26] MEDS: NOREPINEPHRINE 8 MG in IV D5W 500 ML IV PRN (06:53)
--- NOTE | 2019-08-26 06:55 | NUR ---
horticulture instructor note no acute distress noted. all needs attended to promptly. vent settings well tolerated. suctioned as needed. maria ines drain #1-190ml out. #2- 25ml out. #3- 70ml out. nephrostomy- 390ml out. jay- 175 out. will endorse to next shift for continuity of care.
--- NOTE | 2019-08-26 07:12 | NUR ---
WARRANTY CLERK INITIAL NOTES Rec'd pt on bed, sedated, not in any distress. On MV via ETT, sating at 100%. On telemonitor, SR. Has OGT connected to LIS, bilious drainage. Has L colostomy bag in place w/ black soft output. Has FC draining to BSB w/ minimal UOP. Has [address] - TERENCE drain#1 serosanguineous, TERENCE drain #2 serous, & TERENCE drain #3 serosanguineous. Has L nephrostomy tube in place w/ light brownish output. Has CHENCHO PICC line w/ TPN x 40 cc/hr, Versed x 3 mg/hr. CVP at 12. Has L femoral HD cath in place. Has R femoral A-line intact. Has sx incision on abdomen w/ latonia. Safety precaution in place w/ bed in lowest & locked pos. Call light placed w/in reach. Will cont to monitor & attend pt needs.
[2019-08-26] MEDS ORDERED: TPN BAG #6 IV PRN ×5 (07:30)
[2019-08-26 08:13] LABS: ABG BASE EXCESS -0.4 mmol/L; ABG OXYGEN SATURATION 97.7 % (92.0-98.5); ABG PCO2 28.3 mmHg (35.0-45.0); ABG PH 7.511 (7.350-7.450); ABG PO2 132.8 mmHg (75.0-100.0); AaDO2 119.9 mmHg; COHb 0.3 % (0.5-1.5); MetHb 0.7 % (0.0-1.5); O2Hb 96.7 % (94.0-97.0); SITE, ABG A-Line; VENT MODE, BG AC 28 550 +5 40%
[2019-08-26 08:17] LABS: HEMOGLOBIN 7.8 g/dL (13.5-17.5)
--- NOTE | 2019-08-26 08:30 | NUR ---
Dr. Edward updated about pt status. ABG reviewed by w/ orders to change TV to 500, PEEP 0. RT Linda made aware.
[2019-08-26] MEDS: NITROGLYCERIN 30 GM TUBE TP SCH ×2 (08:36→21:18)
[2019-08-26] MEDS: FAMOTIDINE/PF INJ 20 MG/2 ML VIAL IV SCH ×2 (08:36→21:22)
--- NOTE | 2019-08-26 09:30 | NUR ---
Pt seen & examined by Luis F PRATT, updated about pt status.
--- NOTE | 2019-08-26 10:00 | NUR ---
Pt seen & examined by Marce PRATT, updated about pt status.
--- NOTE | 2019-08-26 10:45 | NUR ---
Pt seen & examined by Dr. Gorge White.
[2019-08-26 15:34] LABS: HEMOGLOBIN 9.8 g/dL (13.5-17.5)
[2019-08-26] MEDS ORDERED: TPN BAG #7 IV PRN ×3 (16:00)
[2019-08-26] MEDS: MIDAZOLAM HCL 100 MG in IV NS 0.9% 80 ML IV PRN (16:33)
--- NOTE | 2019-08-26 19:00 | NUR ---
LABORER TANBARK CLOSING NOTES No significant changes noted w/in shift. Pt remains sedated. Tolerating current vent settings, no SOB. OGT still connected to LIS. IV line access kept patent & intact w/ no s/sx of infection/infiltration. TERENCE drains in place, monitored output & recorded. Wound care done on Sx site on abdomen as ordered. TPN x 60cc/hr. Off pressor, BP WNL. HD tolerated well w/ 2L output (endorsed to PM RN to give Vancomycin as ordered). Safety precaution kept in place w/ bed in lowest & locked pos. Endorsed to PM RN for THOMAS.
--- NOTE | 2019-08-26 19:10 | NUR ---
ICU NOTES RECEIVED PT SEDATED ON VENT VIA ORAL ET-TUBE,FR 7 AT 26 LIP LINE,FIO2 40%,VT 500 A/C 28.ON VERSED DRIP AT 3MG/HR.TPN AT 60ML/HR.OGT TO LIS DRAINING DARK GREEN TO LIGHT BROWNISH DRAINAGE.2 J-P ,DRAINING SEROUS TO TO SEROUS SANGUINEOUS RT SIDE ABDOMEN ,1 J-P TO LT SIDE OF ABDOMEN DRAINING SEROUS SANGUINEOUS DRAINAGE.LT NEPHROSTOMY TUBE DRAINING ANNY URINE.COLOSTOMY BAG DRAINING SCANT AMT DARK GREENISH TO BROWN LIQUID STOOL.ABDOMINAL DRESSING DRY AND INTACT.RAMÍREZ W/OUT URINE.NIBP CORRELATES WELL WITH A-LINE.
[2019-08-26] MEDS: VANCOMYCIN 500 MG in IV D5W 100 ML IV PRN (19:28)
[2019-08-26] MEDS: FLUCONAZOLE IN NS 100 MG in PREMIX 1 EA IV SCH ×2 (20:28)
[2019-08-26 20:38] LABS: HEMOGLOBIN 8.2 g/dL (13.5-17.5)
[2019-08-26] MEDS: MEROPENEM 500 MG in IV NS 0.9% 50 ML IV SCH (21:22)
[2019-08-27] VITALS (67 sets, daily range): BP systolic 85–143; BP diastolic 46–91
--- NOTE | 2019-08-27 | NUR ---
ICU NOTES REMAINS ON VERSED DRIP AT 3MG/HR.OPENS EYES WHEN SUCTIONED,DOES NOT FOLLOW COMMANDS.
[2019-08-27] MEDS: INSULIN REGULAR, HUMAN 100 UNIT/ML 3 ML VIAL SQ PRN ×4 (00:16→17:41)
[2019-08-27] MEDS: BLOOD SUGAR DIAGNOSTIC 1 EACH STRIP IN SCH ×4 (00:17→17:28)
[2019-08-27 05:30] LABS: BASOPHILS # (AUTO) 0.1 /CMM (0.0-0.2); BASOPHILS % (AUTO) 0.3 % (0.0-2.0); EOSINOPHILS % (AUTO) 0.3 % (0.0-6.0); HEMATOCRIT 24 % (39-51); HEMOGLOBIN 8.1 g/dL (13.5-17.5); LYMPHOCYTES # (AUTO) 0.5 /CMM (0.8-4.8); LYMPHOCYTES % (AUTO) 2.7 % (20.0-44.0); MEAN CORPUSCULAR HGB CONC 34 g/dl (31.0-36.0); MEAN CORPUSCULAR VOLUME 88 fL (80-96); MONOCYTES # (AUTO) 1.9 /CMM (0.1-1.30); MONOCYTES % (AUTO) 9.4 % (2.0-12.0); NEUTROPHILS # (AUTO) 17.3 /CMM (1.8-8.9); NEUTROPHILS % (AUTO) 87.3 % (43.0-81.0); PLATELET COUNT (AUTO) 344 /CMM (150-450); RED BLOOD CELL COUNT(AUTO) 2.71 MIL/uL (4.5-6.0); WHITE BLOOD COUNT (AUTO) 19.8 K/uL (4.3-11.0)
[2019-08-27 05:35] LABS: CALCIUM, SERUM 7.4 mg/dL (8.5-10.1); CREATININE 5.7 mg/dL (0.6-1.3); POTASSIUM 3.9 mmol/L (3.5-5.1)
--- NOTE | 2019-08-27 07:12 | NUR ---
CULINARY CHEF INITIAL NOTES Rec'd pt on bed, sedated, not in any distress. On MV via ETT, sating at 100%. On telemonitor, SR. Has OGT connected to LIS, bilious drainage. Has L colostomy bag in place w/ black soft output. Has FC draining to BSB w/ minimal UOP. Has [address] - TERECNE drain#1 serosanguineous, TERENCE drain #2 serous, & TERENCE drain #3 serosanguineous. Has L nephrostomy tube in place w/ light brownish output. Has CHENCHO PICC line w/ TPN x 60 cc/hr, Versed x 3 mg/hr. CVP at 9. Has L femoral HD cath in place. Has R femoral A-line intact. Has sx incision on abdomen w/ latonia. Safety precaution in place w/ bed in lowest & locked pos. Call light placed w/in reach. Will cont to monitor & attend pt needs.
--- NOTE | 2019-08-27 07:16 | NUR ---
ICU NOTES REPORT AND CARE OF PT GIVEN TO PATRICIA MANN
--- NOTE | 2019-08-27 07:55 | NUR ---
Pt started on HD c/o Robin MANN.
[2019-08-27] MEDS: NITROGLYCERIN 30 GM TUBE TP SCH ×2 (08:36→21:00)
[2019-08-27] MEDS: FAMOTIDINE/PF INJ 20 MG/2 ML VIAL IV SCH ×2 (08:47→20:51)
[2019-08-27 09:26] LABS: MAGNESIUM 2.2 mg/dL (1.8-2.4); PHOSPHORUS 4.3 mg/dL (2.5-4.9)
--- NOTE | 2019-08-27 10:00 | NUR ---
Pt noted to be tachycardic HR 120 bpm, tacypneic 40 bpm, episode of desaturation 89 (lowest), T 99.6. Dr. Sagastume at bedside, updated about pt status. HD terminated c/o Robin MANN w/ 2.1L output [address] Sagastumes may start sedation vacation, will try weaning trials once pt is awake.
[2019-08-27 10:42] LABS: HEMOGLOBIN 9.5 g/dL (13.5-17.5)
--- NOTE | 2019-08-27 11:20 | NUR ---
PT FAILED SBT. PT PLACED BACK ON AC DUE TO INCREASED WOB. RN PATRICIA AWARE. WILL CONT TO MONITOR
--- NOTE | 2019-08-27 11:44 | NUR ---
1120 - 1135 Pt started on weaning trials - SIMV 4, PEEP 5, PS 15, FiO2 50% c/o RT. Noted increased WOB, tachypneic RR 40's. Placed back on AC mode - WOB decreased.
[2019-08-27] MEDS: NOREPINEPHRINE 8 MG in IV D5W 500 ML IV PRN (12:24)
--- NOTE | 2019-08-27 13:58 | NUR ---
Rec'd call from Dr. Sagastume made aware about the failed weaning trial. Per , do ABG now.
[2019-08-27] MEDS ORDERED: TPN BAG #8 IV PRN ×4 (14:00)
--- NOTE | 2019-08-27 14:00 | NUR ---
Luis F PRATT updated about pt condition. ACTIVITIES THERAPIST seen & examined the pt. Informed him re: failed weaning trial this AM. Per ACTIVITIES THERAPIST, may keep off sedation if not restless/agitated. Dtr at bedside & was able to talk to ACTIVITIES THERAPIST. ABG reviewed by ACTIVITIES THERAPIST. Results relayed to Dr. Sagastume w/ orders change vent setting RR 24, TV 450, FiO2 50%, PEEP 5. Per MD, may turn off PEEP if BP drops.
[2019-08-27 15:52] LABS: HEMOGLOBIN 8.2 g/dL (13.5-17.5)
[2019-08-27 17:25] LABS: ABG BASE EXCESS 4.9 mmol/L; ABG OXYGEN SATURATION 93.1 % (92.0-98.5); ABG PCO2 31.4 mmHg (35.0-45.0); ABG PH 7.556 (7.350-7.450); AaDO2 182.1 mmHg; COHb 0.3 % (0.5-1.5); MetHb 0.7 % (0.0-1.5); O2Hb 92.2 % (94.0-97.0); PEEP,BG 0 cm H2O; SITE, ABG A-Line; VT, ABG 500 mL
--- NOTE | 2019-08-27 18:00 | NUR ---
Rec'd call from Dr. Pérez w/ orders to repeat ABG after vent changes. ABG results relayed to Dr. Sagastume w/ NNO at this time. CXR, ABG in AM.
[2019-08-27 18:01] LABS: ABG BASE EXCESS 1.4 mmol/L; ABG PCO2 32.3 mmHg (35.0-45.0); ABG PH 7.498 (7.350-7.450); ABG PO2 105.2 mmHg (75.0-100.0); COHb 0.3 % (0.5-1.5); MetHb 0.8 % (0.0-1.5); O2Hb 95.9 % (94.0-97.0); PEEP,BG 5 cm H2O; SITE, ABG A-Line; VT, ABG 450 mL
[2019-08-27] MEDS: VANCOMYCIN 500 MG in IV D5W 100 ML IV PRN (18:23)
--- NOTE | 2019-08-27 18:42 | NUR ---
VETERINARY INSPECTOR CLOSING NOTES Pt resting on bed, remains sedated. Tolerating current vent settings, no SOB at this time. OGT still connected to LIS w/ light brownish in color. IV line access kept patent & intact w/ no s/sx of infection/infiltration. TERENCE drains in place, monitored output & recorded. Wound care done on Sx site on abdomen as ordered. TPN x 60cc/hr. Off pressor, BP monitored closely. HD today w/ 2.1L output. Safety precaution kept in place w/ bed in lowest & locked pos. Will endorse to PM RN for THOMAS.
--- NOTE | 2019-08-27 19:00 | NUR ---
RECEIVED PATIENT ORALLY INTUBATED TO THE VENTILATOR ON AC MODE,SEDATED ON PROPOFOL DRIP, + COUGH AND GAG, + GRIMACE,NO MOVEMENT ON ANY EXTREMITY , + GENERALIZED EDEMA. mID ABDOMINAL INCISION S/P EXPLOR LAP ,WITH DRESSING DRY AND INTACT, (-) BLEEDING ,COLOSTOMY @ lLLQ WITH DARK GREENISH DRAINAGE,3 TERENCE BULB DRAIN (DRAIN #1 @ L WITH SERO SANGUINOUS DRAINAGE,ARCHANA #2 WITH SEROUS DRAINAGE,DRAIN 3 # @ LEFT WITH SEROU SANGUINOUS DRAINAGE) ,NEPHROSTOMY TUBE @ LEFT POSTOLATERAL SIDE OF LOWER ABDOMEN WITH YELLOWISH CLEAR DRAINAGE, HD CATHETER @ LEFT FEMORAL AREA ,DRESSING DRY,CLEAN AND INTACT. ARTERIAL LINE @ RIGHT FEMORAL PRINCE WITH APPROPRIATE WAVEFORM AND GOOD BLOOD RETURN. OGT TO LIWS WITH DARK BROWNISH DRAINAGE. COMFORT CARE DONE.
--- NOTE | 2019-08-27 20:00 | NUR ---
NEPHROSTOMY TUBE=60 ML, TERENCE#1=20 ML SEROSANGUINEOUS ,TERENCE#2=5 ML SEROUS,TERENCE# 3=10 ML SEROSANGUINEOUS.
[2019-08-27] MEDS: FLUCONAZOLE IN NS 100 MG in PREMIX 1 EA IV SCH ×2 (20:01)
[2019-08-27] MEDS: MEROPENEM 500 MG in IV NS 0.9% 50 ML IV SCH (20:51)
[2019-08-27 22:28] LABS: HEMOGLOBIN 7.8 g/dL (13.5-17.5)
--- NOTE | 2019-08-27 22:30 | NUR ---
GETS TACHYPNEIC WITH LABORED BREATHING ,WITH RR-35-37, VERSED DRIP INCREASED TO 4 MG/HR.
[2019-08-27 23:19] LABS: OCCULT BLOOD STOOL POSITIVE (NEGATIVE)
[2019-08-28] VITALS (66 sets, daily range): BP systolic 76–129; BP diastolic 47–74
--- NOTE | 2019-08-28 | NUR ---
STATUS UNCHANGED, STILL ON 4 MG/HR VERSED SEDATION,COUGHS OCCASIONALLY.FEBRILE KFGS=531, COOLONG MEASURES DONE.
--- NOTE | 2019-08-28 | NUR ---
NEPHROSTOMY TUBE =40 ML,TERENCE#1=20 ML,TERENCE#2=5 ML, TERENCE #3=10 ML.
[2019-08-28] MEDS: BLOOD SUGAR DIAGNOSTIC 1 EACH STRIP IN SCH ×4 (00:41→18:20)
--- NOTE | 2019-08-28 02:00 | NUR ---
STABLE, STATUS UNCHANGED.TEMP,=99.6 AFTER COOLING MEASURES.
--- NOTE | 2019-08-28 04:00 | NUR ---
NEPHROETOMY TUBE=50 ML,YENI#1=30 ML,YENI#0,Yeni#3=10,HROSOTKGT=919 ML DARK GREEN
[2019-08-28] MEDS: MIDAZOLAM HCL 100 MG in IV NS 0.9% 80 ML IV PRN (04:14)
[2019-08-28 04:52] LABS: HEMOGLOBIN 7.6 g/dL (13.5-17.5)
--- NOTE | 2019-08-28 05:00 | NUR ---
AM BATH DONE,TOLERATED TURNING.PATIENT VERY RESPONSIVE TO PAIN ,GRIMACES,COUGHS, SLIGHTLY WITHDRAWS LOWER EXTREMITIES TO PAIN.
[2019-08-28 05:29] LABS: CALCIUM, SERUM 7.5 mg/dL (8.5-10.1); CREATININE 6.4 mg/dL (0.6-1.3); MAGNESIUM 2.3 mg/dL (1.8-2.4); PHOSPHORUS 5.4 mg/dL (2.5-4.9); POTASSIUM 4.1 mmol/L (3.5-5.1)
[2019-08-28] MEDS: INSULIN REGULAR, HUMAN 100 UNIT/ML 3 ML VIAL SQ PRN ×3 (06:15→18:20)
--- NOTE | 2019-08-28 07:00 | NUR ---
REMAINS INTUBATED,SEDATED ,VERSED DRIP @ 4 MG/HR,RESPONDS TO PAIN,TACHYPNEIC OCCASIONALLY .V/S STABLE.REPORT GIVEN TO PATRICIA MANN
--- NOTE | 2019-08-28 07:00 | NUR ---
STABLE,AWAKE,ALERT NOT IN ANY DISTRESS,STILL NPO ,STILL WITH ON AND OFF NAUSEA(ON REGLAN PRN). Addendum: 08/28/19 at 0722 by CHRISTAL ROJAS RN PLEASE DISREGARD ABOVE NOTES.ENTERED IN WRONG PATIENT.
--- NOTE | 2019-08-28 07:12 | NUR ---
MILL HELPER INITIAL NOTES Rec'd pt on bed, sedated, not in any distress. On MV via ETT, sating at 100%. On telemonitor, SR. Has OGT connected to LIS, bilious drainage. Has L colostomy bag in place w/ black soft output. Has FC draining to BSB w/ minimal UOP. Has [address] - TERENCE drain#1 serosanguineous, TERENCE drain #2 serous, & TERENCE drain #3 serosanguineous. Has L nephrostomy tube in place w/ light brownish output. Has CHENCHO PICC line w/ TPN x 60 cc/hr, Versed x 4 mg/hr. CVP at 13. Has L femoral HD cath in place. Has R femoral A-line intact. Has sx incision on abdomen w/ latonia. Safety precaution in place w/ bed in lowest & locked pos. Call light placed w/in reach. Will cont to monitor & attend pt needs.
--- NOTE | 2019-08-28 08:00 | NUR ---
TERENCE drain #1: 30 serosanguineous TERENCE drain #2: 2 serous TERENCE drain #3: 20 serosanguineous Nephrostomy: 50
[2019-08-28] MEDS: NITROGLYCERIN 30 GM TUBE TP SCH ×2 (08:14→20:20)
[2019-08-28] MEDS: FAMOTIDINE/PF INJ 20 MG/2 ML VIAL IV SCH ×2 (08:14→20:48)
[2019-08-28] MEDS ORDERED: TPN BAG #9 IV PRN ×2 (08:30)
--- NOTE | 2019-08-28 09:10 | NUR ---
Pt seen & examined by SANTA Kerns updated about pt status & condition. Informed him re: unequal pupil reaction but brisk.
--- NOTE | 2019-08-28 10:20 | NUR ---
HD ended c/o Robin MANN w/ 2.4 L output. Pt noted to be tachycardic 115 bpm & tachypneic 40's. Versed increased to 7 mg/hr (titrated accordingly). Requested Fentanyl drip from pharmacy. 1025 Pt seen & examined by Dr. Sagastume updated about pt status. MD agreed to add Fentanyl drip & then do ABG once Fentanyl drip started. RT aware. Per MD, okay to repeat Triglyceride (add to 10am lab).
[2019-08-28 10:30] LABS: CREATININE 3.5 mg/dL (0.6-1.3)
[2019-08-28 10:51] LABS: BASOPHILS # (AUTO) 0.1 /CMM (0.0-0.2); BASOPHILS % (AUTO) 0.3 % (0.0-2.0); EOSINOPHILS % (AUTO) 0.4 % (0.0-6.0); HEMATOCRIT 30 % (39-51); HEMOGLOBIN 9.8 g/dL (13.5-17.5); LYMPHOCYTES # (AUTO) 0.6 /CMM (0.8-4.8); LYMPHOCYTES % (AUTO) 2.4 % (20.0-44.0); MEAN CORPUSCULAR HGB CONC 33 g/dl (31.0-36.0); MEAN CORPUSCULAR VOLUME 88 fL (80-96); MONOCYTES # (AUTO) 2.2 /CMM (0.1-1.30); MONOCYTES % (AUTO) 8.8 % (2.0-12.0); NEUTROPHILS # (AUTO) 22.3 /CMM (1.8-8.9); NEUTROPHILS % (AUTO) 88.1 % (43.0-81.0); PLATELET COUNT (AUTO) 416 /CMM (150-450); RED BLOOD CELL COUNT(AUTO) 3.37 MIL/uL (4.5-6.0); WHITE BLOOD COUNT (AUTO) 25.3 K/uL (4.3-11.0)
[2019-08-28] MEDS: FENTANYL CITRATE IV 1,250 MCG in IV NS 0.9% 225 ML IV PRN (11:16)
--- NOTE | 2019-08-28 11:30 | NUR ---
ABG results relayed to Dr. Sagastume w/ NNO.
[2019-08-28] MEDS: Z GUARD REMEDY 2 OZ OINT TP PRN (11:46)
--- NOTE | 2019-08-28 12:00 | NUR ---
TERENCE drain #1: 10 serosanguineous TERENCE drain #2: 2 serous TERENCE drain #3: 10 serosanguineous Nephrostomy: 10
[2019-08-28] MEDS: MORPHINE SULFATE INJ 2 MG/ML DISP.SYRIN IV PRN (12:04)
[2019-08-28] MEDS ORDERED: AMOX/CLAVULANATE 875 MG TABLET PO SCH (13:00)
--- NOTE | 2019-08-28 13:35 | NUR ---
Pt seen & examined again by Luis F PRATT, updated about pt condition. Per STEAM TENDER order blood culture x 2. Dr. Sagastume & Luis F PRATT talked to dtr updated about pt condition.
--- NOTE | 2019-08-28 13:48 | NUR ---
Daughter requested if someone calls to please redirect calls to her phone#. Not to give information over the phone.
--- NOTE | 2019-08-28 14:35 | NUR ---
Pt seen & examined by Marce PRATT, updated about pt status & condition.
--- NOTE | 2019-08-28 15:45 | NUR ---
Dtr consented for CT of the Abdomen/Pelvis w/ contrast as ordered by Marce PRTAT. Pt was sent to CT dept via ACLS protocol, tolerated well. Per Luis F PRATT, no need for CT of head for now. Addendum: 08/28/19 at 1852 by PATRICIA MAGDALENO RN Addendum: Alivia PRATT aware of high BUN/crea. Confirmed w/ Hill COLVIN RN that pt will have HD lele.
--- NOTE | 2019-08-28 16:00 | NUR ---
TERENCE drain #1: 20 serosanguineous TERENCE drain #2: 3 serous TERENCE drain #3: 2 serosanguineous Nephrostomy: 5
[2019-08-28] MEDS ORDERED: IOHEXOL-300 100 ML VIAL IV ONE (16:09)
[2019-08-28 16:12] LABS: HEMOGLOBIN 7.6 g/dL (13.5-17.5)
--- NOTE | 2019-08-28 18:47 | NUR ---
AWNING SPREADER CLOSING NOTES Pt resting on bed, remains sedated - on Fentanyl 1mcg & Versed 2 mg. Tolerating current vent settings, no SOB at this time. OGT still connected to LIS w/ bilious output. IV line access kept patent & intact w/ no s/sx of infection/infiltration. TERENCE drains in place, monitored output & recorded. Wound care done on Sx site on abdomen as ordered. TPN x 60cc/hr. Off pressor, BP monitored closely. HD today w/ 2.4L output. Safety precaution kept in place w/ bed in lowest & locked pos. Will endorse to PM RN for THOMAS.
--- NOTE | 2019-08-28 19:30 | NUR ---
TOOL SHARPENER INITIAL SHIFT NOTES RECEIVED PATIENT IN BED, SEDATED ON VERSED GTT. PATIENT ORALLY INTUBATED, ON MECHANICAL VENTILATION, TOLERATING ORDERED SETTINGS WELL, NO RESPIRATORY DISTRESS NOTED. 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 RIGHT UPPER ARM PICC INFUSING TPN @ 60ML/HR, VERSED GTT @ 2MG/HR, FENTANYL @ 1MCG/KG/HR, CVP MONITORING = 10 AT THIS TIME. RIGHT FEMORAL JAD, LEFT FEMORAL HD CATH, DRESSINGS DRY AND INTACT. ABDOMEN SLIGHTLY DISTENDED, HYPOACTIVE BOWEL SOUNDS, NOTED WITH LEFT FLANK NEPHROSTOMY TUBE, LEFT SIDED COLOSTOMY, TERENCE DRAINS X3, AND INCISIONAL SITE WITH MARIA GUADALUPE. BILATERAL SOFT WRIST RESTRAINTS FOR SELF EXTUBATION RISK. WILL CONTINUE TO CLOSELY MONITOR
[2019-08-28] MEDS: FLUCONAZOLE IN NS 100 MG in PREMIX 1 EA IV SCH ×2 (19:47)
--- NOTE | 2019-08-28 20:00 | NUR ---
DRAINS TERENCE #1 10 ML SEROSANGUINEOUS TERENCE #2 5ML SEROSANGUINEOUS TERENCE #3 5ML SEROSANGUINEOUS NEPHROSTOMY 10ML ANNY/TEA COLORED
[2019-08-28] MEDS: MEROPENEM 500 MG in IV NS 0.9% 50 ML IV SCH (20:48)
--- NOTE | 2019-08-28 22:18 | NUR ---
ROLL FORGER NOTES TPN BAG #9 INFUSING, VERIFIED WITH CHARGE NURSE ED
--- NOTE | 2019-08-28 22:30 | NUR ---
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
[2019-08-29] VITALS (41 sets, daily range): BP systolic 85–119; BP diastolic 35–67
--- NOTE | 2019-08-29 | NUR ---
DRAIN OUTPUT TERENCE #1 20ML SEROSANGUINEOUS TERENCE #2 5ML SEROSANGUINEOUS TERENCE #3 5ML SEROSANGUINEOUS
[2019-08-29] MEDS: FENTANYL CITRATE IV 1,250 MCG in IV NS 0.9% 225 ML IV PRN ×2 (00:28→14:40)
[2019-08-29] MEDS: BLOOD SUGAR DIAGNOSTIC 1 EACH STRIP IN SCH ×4 (00:41→18:00)
--- NOTE | 2019-08-29 04:00 | NUR ---
DRAINS TERENCE #1 5ML SEROSANGUINEOUS TERENCE #2 3ML SEROSANGUINEOUS TERENCE #2 2ML SEROSANGUINEOUS NEPHROSTOMY 5ML ANNY/TEA COLORED
[2019-08-29 05:06] LABS: BASOPHILS % (AUTO) 0.2 % (0.0-2.0); EOSINOPHILS % (AUTO) 0.8 % (0.0-6.0); HEMATOCRIT 21 % (39-51); LYMPHOCYTES # (AUTO) 0.6 /CMM (0.8-4.8); LYMPHOCYTES % (AUTO) 3.6 % (20.0-44.0); MEAN CORPUSCULAR HGB CONC 33 g/dl (31.0-36.0); MEAN CORPUSCULAR VOLUME 89 fL (80-96); MONOCYTES # (AUTO) 1.8 /CMM (0.1-1.30); MONOCYTES % (AUTO) 11.8 % (2.0-12.0); NEUTROPHILS # (AUTO) 12.9 /CMM (1.8-8.9); NEUTROPHILS % (AUTO) 83.6 % (43.0-81.0); PLATELET COUNT (AUTO) 391 /CMM (150-450); RED BLOOD CELL COUNT(AUTO) 2.39 MIL/uL (4.5-6.0); WHITE BLOOD COUNT (AUTO) 15.4 K/uL (4.3-11.0)
[2019-08-29 05:39] LABS: CALCIUM, SERUM 6.3 mg/dL (8.5-10.1); CREATININE 6.8 mg/dL (0.6-1.3); MAGNESIUM 2.2 mg/dL (1.8-2.4); POTASSIUM 4.2 mmol/L (3.5-5.1)
[2019-08-29] MEDS: INSULIN REGULAR, HUMAN 100 UNIT/ML 3 ML VIAL SQ PRN (06:22)
[2019-08-29] MEDS: MIDAZOLAM HCL 100 MG in IV NS 0.9% 80 ML IV PRN (06:28)
[2019-08-29] MEDS ORDERED: TPN BAG #10 IV PRN ×4 (08:00)
[2019-08-29] MEDS: FAMOTIDINE/PF INJ 20 MG/2 ML VIAL IV SCH ×2 (08:20→21:13)
[2019-08-29] MEDS: NITROGLYCERIN 30 GM TUBE TP SCH ×2 (08:40→21:00)
--- NOTE | 2019-08-29 09:47 | NUR ---
RN NOTE 0715: Received patient sedated. With ETT to vent, no respiratory distress noted at this time. With OGT to LIS, noted with dark greenish residuals. CHENCHO PICC intact, on TPN @ 60, Versed @ 2 and Fentanyl @1mcg/kg/hr(95). CVP reads 11. Medial abdomen SP explore lap site dressing CDI. With 3JP draining serosanguineous, will monitor outputs. With left nephrostomy, noted with minimal delma colored urine drained to BSD. With Acuña cath intact, noted with very minimal amount of tea colored urine seen on the tubing. Right fem [place] intact, SBP >90's. Left femoral HD cath intact. SCD on. 30: Held Nitro paste for SBP low 100's. 0900: Rendered sedation vacation, noted with eyes opening, does not track voice, does not follow commands but had to place back on Fentanyl and Versed after 20minutes for noted with increased work of breathing, made Dr. Edward aware. 0945: No any significant changes noted at this time. VSS. Awaiting consent for abscess drainage today.
--- NOTE | 2019-08-29 10:34 | NUR ---
RN NOTE Spoke with Mila via phone and consented re: the abscess drainage, trache placement and anesthesia, verified by MYLENE Villagomez. Made Dr. Edward aware, said he contacted Dr. Nguyen, awaiting for schedule.
[2019-08-29] MEDS ORDERED: FENTANYL PF 250MCG/5ML AMPUL IV ONE (13:00)
[2019-08-29] MEDS ORDERED: NALOXONE PREFILLED SYRINGE 2 MG/2 ML SYRINGE IV ONE (13:00)
[2019-08-29] MEDS ORDERED: MIDAZOLAM HCL 5MG/ML VIAL 25 MG/5 ML VIAL IV ONE (13:00)
[2019-08-29] MEDS ORDERED: ALBUMIN 25% 25 GM in PREMIX 1 EA IV PRN (16:30)
--- NOTE | 2019-08-29 16:30 | NUR ---
RN NOTE 1430: Patient back to room, tolerated procedure, no other meds given in the CT and US guided drain abscess. With new drain on RUQ, pio. Family at bedside, seen the new drain, draining minimal serosanguineous drainage. VSS. 1510: Cleaned patient, noted with rash on neck, chest, and trunk area, made Khushboo PRATT aware. 1630: HD ongoing, tolerated. No any significant changes noted at this time. Addendum: 08/29/19 at 1634 by NICOLE BLAND RN sent 1ml hepatic abscess gathered from procedure and was able to collect 3mL more, sent to labs, awaiting MD/MANAGER DIABETES's order for tests.
[2019-08-29 17:14] LABS: HEMOGLOBIN 8.1 g/dL (13.5-17.5)
--- NOTE | 2019-08-29 18:07 | NUR ---
RT NOTE PT REMAINS MECHANICALLY VENTILATED VIA 7.0 ETT 26 CM AT LIP. CUFF INFLATED. ETT SECURE. VENTILATOR SETTINGS PRESCRIBED. ALARMS SET PER PROTOCOL AND AUDIBLE. VENT PLUGGED IN TO RED OUTLET. AMBU BAG AT BED SIDE. NO DISTRESS NOTED. Addendum: 08/29/19 at 1809 by SWEETIE CARTER RT Amended: Links added.
--- NOTE | 2019-08-29 18:49 | NUR ---
RN NOTE Woody MATERNAL CHILD NURSE came, reported the rash on the body, she will review ATB. Done with HD, tolerated, HD nurse reported 2L out. VSS at this time, noted with minimal serosanguineous from new accordion drain.
--- NOTE | 2019-08-29 18:52 | NUR ---
Drains 0800 > TERENCE 1(RLQ) - 10mL serosanguineous > TERENCE 2(RUQ) - 3mL serous > TERENCE 3LUQ - 3mL serous 1200 > TERENCE 1 - 20 > TERENCE 2 - 3 > TERENCE 3- 3 1600 > TERENCE 1 - 20 > TERENCE 2 - 1 > TERENCE 3 - 10 1800 > TERENCE 1 - 10 > TERENCE 2 - 1 > TERENCE 3 - 2
[2019-08-29] MEDS: FLUCONAZOLE IN NS 100 MG in PREMIX 1 EA IV SCH ×2 (19:56)
[2019-08-29] MEDS ORDERED: VANCOMYCIN 1 GM in IV D5W 250 ML IV ONE (20:00)
[2019-08-29] MEDS: AZTREONAM 1 G in IV NS 0.9% 100 ML IV SCH (21:03)
[2019-08-30] VITALS (47 sets, daily range): BP systolic 89–151; BP diastolic 38–94
[2019-08-30] MEDS ORDERED: TPN BAG #11 IV PRN ×2
[2019-08-30] MEDS: BLOOD SUGAR DIAGNOSTIC 1 EACH STRIP IN SCH ×5 (00:56→23:30)
[2019-08-30] MEDS: INSULIN REGULAR, HUMAN 100 UNIT/ML 3 ML VIAL SQ PRN ×4 (00:59→23:32)
[2019-08-30] MEDS: diphenhydrAMINE HCL 50 MG/ML VIAL IV PRN (01:06)
[2019-08-30 01:37] LABS: HEMOGLOBIN 6.7 g/dL (13.5-17.5)
[2019-08-30] MEDS: FENTANYL CITRATE IV 1,250 MCG in IV NS 0.9% 225 ML IV PRN (04:16)
[2019-08-30 04:31] LABS: BASOPHILS # (AUTO) 0.1 /CMM (0.0-0.2); BASOPHILS % (AUTO) 0.9 % (0.0-2.0); EOSINOPHILS % (AUTO) 0.8 % (0.0-6.0); HEMATOCRIT 21 % (39-51); LYMPHOCYTES # (AUTO) 0.5 /CMM (0.8-4.8); LYMPHOCYTES % (AUTO) 4.1 % (20.0-44.0); MEAN CORPUSCULAR HGB CONC 33 g/dl (31.0-36.0); MEAN CORPUSCULAR VOLUME 89 fL (80-96); MONOCYTES # (AUTO) 1.3 /CMM (0.1-1.30); NEUTROPHILS # (AUTO) 10.6 /CMM (1.8-8.9); NEUTROPHILS % (AUTO) 84.2 % (43.0-81.0); PLATELET COUNT (AUTO) 399 /CMM (150-450); RED BLOOD CELL COUNT(AUTO) 2.37 MIL/uL (4.5-6.0); WHITE BLOOD COUNT (AUTO) 12.6 K/uL (4.3-11.0)
[2019-08-30 04:51] LABS: CALCIUM, SERUM 7.6 mg/dL (8.5-10.1); CREATININE 6.4 mg/dL (0.6-1.3); MAGNESIUM 2.1 mg/dL (1.8-2.4); PHOSPHORUS 7.8 mg/dL (2.5-4.9); POTASSIUM 4.3 mmol/L (3.5-5.1)
[2019-08-30] MEDS ORDERED: VANCOMYCIN 500 MG in IV D5W 100 ML IV PRN (06:00)
--- NOTE | 2019-08-30 07:32 | NUR ---
WOUND CARE FOLLOW UP: PT SEEN FOR RE-EVALUATION OF LEFT EAR INTACT DEEP TISSUE INJURY WHICH CONTINUES TO BE INTACT. NO DRAINAGE OR PERIWOUND ERYTHEMA NOTED. CONTINUE PRESENT TREATMENT. DISCUSSED WITH NURSING STAFF. Addendum: 08/30/19 at 0734 by TAB JAFFE WNDNU Amended: Links added.
--- NOTE | 2019-08-30 07:40 | NUR ---
RT Pt received orally intubated on mechanical ventilation with noted settings. Vent is plugged into red outlet. No SOB or respiratory distress noted. Addendum: 08/30/19 at 1013 by LOLIS SOTO RT Amended: Links added.
--- NOTE | 2019-08-30 08:10 | NUR ---
RT Pt was transported to OR for tracheostomy placement. Addendum: 08/30/19 at 1013 by LOLIS SOTO RT Amended: Links added.
[2019-08-30] MEDS ORDERED: LIDOCAINE 1%-EPI 1:100,000 20 ML VIAL ONE (08:22)
--- NOTE | 2019-08-30 08:45 | NUR ---
RT Pt received back from OR trached with a Shiley 8 trach, equal bilateral breath sounds noted. Some bleeding noted around trach site. No SOB or respiratory distress noted. Addendum: 08/30/19 at 1013 by LOLIS SOTO RT Amended: Links added.
[2019-08-30] MEDS ORDERED: MORPHINE SULFATE INJ 2 MG/ML DISP.SYRIN IV PRN (09:00)
[2019-08-30 09:06] LABS: ABG BASE EXCESS 1.4 mmol/L; ABG PH 7.428 (7.350-7.450); ABG PO2 87.8 mmHg (75.0-100.0); AaDO2 223.7 mmHg; COHb 0.3 % (0.5-1.5); MetHb 1.3 % (0.0-1.5); O2Hb 93.5 % (94.0-97.0); PEEP,BG 5 cm H2O; SITE, ABG A-Line; VT, ABG 450 mL
[2019-08-30] MEDS: FAMOTIDINE/PF INJ 20 MG/2 ML VIAL IV SCH ×2 (09:51→20:45)
[2019-08-30] MEDS: AZTREONAM 1 G in IV NS 0.9% 100 ML IV SCH (09:51)
[2019-08-30] MEDS ORDERED: TPN BAG #12 IV PRN ×4 (10:00)
[2019-08-30] MEDS: MORPHINE SULFATE INJ 4 MG/ML DISP.SYRIN IV PRN ×4 (10:17→20:46)
[2019-08-30] MEDS ORDERED: TPN BAG #13 IV PRN ×2 (10:30)
--- NOTE | 2019-08-30 10:55 | NUR ---
RN NOTE 0715: Received patient sedated. With ETT to vent, no respiratory distress noted at this time. With OGT to LIS, noted with minimal dark greenish residuals. CHENCHO PICC intact, on TPN @ 60, Versed @ 2 and Fentanyl @1mcg/kg/hr(95). CVP reads 9. Medial abdomen SP explore lap site dressing CDI. With 3JP draining well, #1 serosanguineous #2 and #3 Serous, also with 4th drain(accordion) with minimal serous drainage, will monitor outputs. With left nephrostomy, noted with minimal delma colored urine drained to BSD. With Acuña cath intact, noted with very minimal amount of tea colored urine seen on the tubing. Right fem [place] intact, SBP >100's. Left femoral HD cath intact. SCD on. 0750: Called daughter Mila and given update, made aware that patient will go to trache placement today and will give blood with HD today. 0810: Picked up by OR for trache, VSS. Anesthesiologist at bedside, said to disconnect from Versed and Fantanyl. Kept TPN on. 0850: Patient back to room, with new trache, NGT placed by OR, with good gurgling sound during auscultation. Cleaned patient, changed linens. Kept patient comfortable. 0915: S/E by Dr. Medina with order of Ativan and Morphine and to DC Versed and Fentanyl. 1010: S/E by Alivia Mcneal SENIOR ACCOUNTING SPECIALIST. Given 1st dose of Morphine. 1050: No any significant changes noted at this time. Will continue to monitor.
--- NOTE | 2019-08-30 13:31 | NUR ---
RN NOTE HD nurse at bedside, given 1 unit PRBC with HD. No any significant changes noted. Noted with eyes opening, but does not track voice and still does not follow commands.
--- NOTE | 2019-08-30 16:21 | NUR ---
RN NOTE S/E by Dr. Ivan, aware for the rash, said he will review chart, ST 120's now, just gave Morphine fro pain. HD nurse reported 2L out.
[2019-08-30] MEDS ORDERED: PANTOPRAZOLE 80 MG in IV NS 0.9% 500 ML IV PRN (18:00)
[2019-08-30] MEDS ORDERED: PANTOPRAZOLE 80 MG in IV NS 0.9% 100 ML IV ONE (18:00)
--- NOTE | 2019-08-30 18:24 | NUR ---
Drains 0800: - TERENCE 1 RLQ > 10mL serosanguineous - TERENCE 2 RUQ > 1mL serous - TERENCE 3 LUQ > 1mL serous - Accordion 4 drain RLQ > serous 1200: - TERENCE 1 RLQ > 10mL serosanguineous - TERENCE 2 RUQ > 1mL serous - TERENCE 3 LUQ > 1mL serous - Accordion 4 drain RLQ > serous 1600: - TERENCE 1 RLQ > 10mL serosanguineous - TERENCE 2 RUQ > 1mL serous - TERENCE 3 LUQ > 1mL serous - Accordion 4 drain RLQ > serous
--- NOTE | 2019-08-30 18:50 | NUR ---
RN NOTE Noted with ST 122 even after Morphine administration, checked temp 100.4, rendered cooling measures, placed temp probe with NGT, will continue monitoring.
[2019-08-30] MEDS: ACETAMINOPHEN 650 MG/SUPP.RECT RC PRN (19:20)
[2019-08-30] MEDS ORDERED: DOSING PER PHARMACY-AMIKACI IV XX PRN (19:30)
[2019-08-30] MEDS ORDERED: FEE PK DOSING 1 MIN EA MC ONE (19:37)
[2019-08-30] MEDS: FLUCONAZOLE IN NS 100 MG in PREMIX 1 EA IV SCH ×2 (20:20)
[2019-08-30] MEDS ORDERED: AMIKACIN IV ONE (21:00)
[2019-08-30] MEDS ORDERED: D5W IV ONE (21:00)
--- NOTE | 2019-08-30 21:20 | NUR ---
STAFF NURSE: DIFLUCAN, PEPCID AND MORPHINE ADMINISTERED BY NIGHT PRIMARY NURSE, NOT NICOLE Bell (DAY SHIFT). DAY SHIFT RN FORGOT TO LOG OUT ON Simple. REASSESSED AFTER GIVEN MORPHINE WT GOOD EFFECT. HR IMPROVED, TEMP=99.9 AFTER GIVEN TYLENOL AND COOLING MEASURES. ALL CULTURES SENT TO LAB. WILL CONTINUE TO MONITOR.
[2019-08-31] VITALS (43 sets, daily range): BP systolic 109–160; BP diastolic 52–112
[2019-08-31] MEDS: MORPHINE SULFATE INJ 4 MG/ML DISP.SYRIN IV PRN ×4 (00:59→15:41)
[2019-08-31 04:44] LABS: BASOPHILS % (AUTO) 0.4 % (0.0-2.0); EOSINOPHILS % (AUTO) 0.8 % (0.0-6.0); HEMATOCRIT 25 % (39-51); LYMPHOCYTES # (AUTO) 0.6 /CMM (0.8-4.8); LYMPHOCYTES % (AUTO) 4.6 % (20.0-44.0); MEAN CORPUSCULAR HGB CONC 33 g/dl (31.0-36.0); MEAN CORPUSCULAR VOLUME 88 fL (80-96); MONOCYTES # (AUTO) 1.3 /CMM (0.1-1.30); NEUTROPHILS # (AUTO) 10.7 /CMM (1.8-8.9); NEUTROPHILS % (AUTO) 84.2 % (43.0-81.0); PLATELET COUNT (AUTO) 421 /CMM (150-450); RED BLOOD CELL COUNT(AUTO) 2.79 MIL/uL (4.5-6.0); WHITE BLOOD COUNT (AUTO) 12.7 K/uL (4.3-11.0)
[2019-08-31 04:57] LABS: CALCIUM, SERUM 8.2 mg/dL (8.5-10.1); CREATININE 6.4 mg/dL (0.6-1.3); MAGNESIUM 2.1 mg/dL (1.8-2.4); PHOSPHORUS 6.5 mg/dL (2.5-4.9); POTASSIUM 4.2 mmol/L (3.5-5.1)
--- NOTE | 2019-08-31 05:07 | NUR ---
RECEIVED PT TRACHED SHLY 8. BLEEDING AROUND THE STOMA. PT WAS TRACHED YESTERDAY. PT TOLERATING VENT SETTINGS. SX'D AND LAVAGED FOR MOD AMT OF THICK SANTANA SECRETIONS. VENT ALRMS SET AND AUDIBLE. AMBU BAG AT BEDSIDE. TRACH CUFF TDP DISPLAYS ANALYST. CONTINUE [facility] VENT SUPPORT. Addendum: 08/31/19 at 0514 by ARSH HESTER RT Amended: Links added.
[2019-08-31] MEDS: INSULIN REGULAR, HUMAN 100 UNIT/ML 3 ML VIAL SQ PRN (05:53)
[2019-08-31] MEDS: BLOOD SUGAR DIAGNOSTIC 1 EACH STRIP IN SCH ×4 (05:54→23:41)
[2019-08-31] MEDS: LORAZEPAM INJ 2 MG/ML VIAL IV PRN ×3 (06:25→20:59)
--- NOTE | 2019-08-31 06:45 | NUR ---
CLINIC SUPERVISOR: TOLERATING VENT SETTINGS ORDERED. MINIMAL BLEEDING ON TRACH. SITE NOTED. PAIN MEDS GIVEN FOR FACIAL GRIMACE AND HIGH BP AND ATIVAN FOR RESTLESSNESS WT GOOD EFFECT. ALL DRAINS PATENT AND INTACT WT MINIMAL DRAINAGE. ALL NEEDS MET. SAFETY PRECAUTION NOTED AT ALL TIMES.
--- NOTE | 2019-08-31 07:42 | NUR ---
rn notes [id number]-received patient from RN. patient on trach to vent, ac mode, saturation up to 99-100%, eyes open spontaneously, seems to turn head to voice, moves extremities time to time. skin remains flushed/rash seems subsiding. TPN ongoing at 60 ml/hr.remaisn on sinus tachycardia, bp within range.
[2019-08-31] MEDS ORDERED: TPN BAG #14 IV PRN ×4 (08:00)
[2019-08-31] MEDS: FAMOTIDINE/PF INJ 20 MG/2 ML VIAL IV SCH ×2 (08:05→20:39)
--- NOTE | 2019-08-31 10:14 | NUR ---
rn notes 1015-SANTA muniz surgery, made rounds, examined and removed TERENCE drains #2,#3, dressings applied.patient eyes open spontaneously.patient medicated for pain, tachycardic
--- NOTE | 2019-08-31 12:14 | NUR ---
rn notes 1200-drains- IFC- 30 ml, tea-colores; nephrostimLeft- 50 ml- tea colored; Fortunato #1- 10 ml- serous. patient daughter visitsm she is updated of patient status, lebs.noted patient to seen to follow commands, responds more than this morning.safety maintained when repositioned.continue monitor patient status
--- NOTE | 2019-08-31 14:36 | NUR ---
RN NOTES 1330-PATIENT REMAINS ON AC MODE. DAUGHTER AT BEDSIDE. 1430-PATIENT GIVEN ATIVAN EARLIER HE STARTS TO GET RESTLESS. LOIDA(NONA BLUE CROSS) CALLED AND ASKED FOR PATIENT'S PMD, CHECKED OPATIENT CHART AND UNABLE TO SEE THIS TIME. PATIENT IS INTUBATED, UNABLE TO PROVIDE IT THIS TIME. LOIDA-3 x 3154
[2019-08-31] MEDS: ACETAMINOPHEN 650 MG/SUPP.RECT RC PRN (15:06)
[2019-08-31] MEDS ORDERED: NEPRO 1,000 ML BOTTLE GT PRN (16:00)
--- NOTE | 2019-08-31 18:09 | NUR ---
RN NOTES 1600-PATIENT PREMEDICATED BEFORE GIVING BATH.ORAL CARE DONE WELL, REMINS WITH SOME VISIBLE RASH.LINES KEPT KINK-FREE, DRESSINGS DRY AND INTACT.COOLING MEASURES DONE WELL. 1800-PATIENT REMAINS ON TPN;FEEDING STARTED ORDERED, HOB RAISED, ASPIRATION PRECAUTIONS OBSERVED. DRAINS: IFC-50 TEA COLORED; LEFT NEPHROSTOMY TUBE-80-TEA COLORED; TERENCE#1- 10 ML, SEROUS VS SEROSANGUINOUS;[id number] TO SOLIS YELLOW; ABDOMINAL DRAIN WITH SEROUS DRAIN.
--- NOTE | 2019-08-31 19:00 | NUR ---
RECEIVED PATIENT IN NO ACUTE DISTRESS IN BED. PATIENT IS LETHARGIC OPENS EYES AND AT TIMES WILL TURN TOWARDS YOU IF YOU CALL THE PATIENT'S NAME. UNSURE IF IT IS INTENTIONAL OR NOT. PATIENT IS ON O2 VIA TRACH. TRACH SITE IS NEW WITH SUTURES INTACT. PATIENT IS ON MECHANICAL VENT WITH SETTING AT AC 24, TV 450, FIO2 40%, PEEP 5. PATIENT TOLERATING VENT SETTING WELL. PATIENT HAS LEFT NARE NG TUBE THAT IS CLEAN DRY INTACT AND PATENT WITH FREE WATER FLUSH AND NEPRO @ 15ML/HR. PATIENT HAS LEFT SIDE NEPHROSTOMY DRAIN THAT IS CLEAN DRY INTACT AND PATENT WITH YELLOW CLEAR URINE DRAINING. PATIENT HAS COLOSTOMY BAG ON THE LEFT ABDOMEN THAT IS CLEAN DRY INTACT AND PATENT WITH DARK STOOL IN BAG. PATIENT HAS RIGHT SIDE TERENCE DRAIN THAT IS CLEAN DRY INTACT AND PATENT WITH SANGUINOUS FLUID DRAINING. PATIENT HAS ABDOMINAL ACCORDION DRAIN THAT IS CLEAN DRY INTACT AND PATENT WITH SANGUINOUS FLUID DRAINING. PATIENT HAS RAMÍREZ CATHETER THAT IS CLEAN DRY INTACT AND PATENT WITH ANNY COLOR URINE DRAINING. PATIENT HAS RIGHT UPPER ARM TLC PICC LINE THAT IS CLEAN DRY INTACT AND PATENT WITH NS @ TKO, CVP MONITORING, AND TPN @ 60ML/HR. PATENT HAS RIGHT FEMORAL A-LINE THAT IS CLEAN DRY AND INTACT. PATIENT HAS LEFT FEMORAL HD CATHETER THAT IS CLEAN DRY AND INTACT. BED IN LOW LOCK POSITION WITH RIALS UP X 2. CALL LIGHT WITHIN REACH AND ALL SAFETY MEASURES ENSURED AND CARRIED OUT. WILL CONTINUE TO MONITOR PATIENT.
--- NOTE | 2019-08-31 19:52 | NUR ---
RN NOTES 1899-REPORT GIVEN TO RN FOR FURTHER CARE. PATIENT AWAKE, NO SIGN OF PAIN. MOVES HEAD TO SOURCE OF VOICE WHEN NAME CALLED OUT LOUD.AFEBRILE, BP WITHIN RANGE.
[2019-08-31] MEDS ORDERED: AMIKACIN 500 MG in IV D5W 100 ML IV PRN (20:00)
--- NOTE | 2019-08-31 20:00 | NUR ---
RESIDUAL CHECK WITH 0 RESIDUAL NOTED. WILL RECHECK IN 4 HOURS PER ORDER.
[2019-08-31] MEDS: FLUCONAZOLE IN NS 100 MG in PREMIX 1 EA IV SCH ×2 (20:38)
[2019-09-01] VITALS (38 sets, daily range): BP systolic 103–164; BP diastolic 54–144
--- NOTE | 2019-09-01 | NUR ---
RESIDUAL CHECK WITH 0 RESIDUALS NOTED. WILL RECHECK IN 4 HOURS PER ORDERS.
[2019-09-01] MEDS: MORPHINE SULFATE INJ 4 MG/ML DISP.SYRIN IV PRN ×4 (00:32→17:51)
--- NOTE | 2019-09-01 02:00 | NUR ---
IRRIGATED NG TUBE WITH ICE WATER DUE TO PATIENT TEMP OF 100.3. WILL CONTINUE TO MONITOR.
--- NOTE | 2019-09-01 04:00 | NUR ---
CHECKED RESIDUAL WITH 200 ML RESIDUALS. STOPPED FEEDING AND WILL RECHECK IN 2 HOURS.
[2019-09-01 04:18] LABS: BASOPHILS % (AUTO) 0.2 % (0.0-2.0); EOSINOPHILS % (AUTO) 1.1 % (0.0-6.0); HEMATOCRIT 23 % (39-51); HEMOGLOBIN 7.7 g/dL (13.5-17.5); LYMPHOCYTES # (AUTO) 0.4 /CMM (0.8-4.8); LYMPHOCYTES % (AUTO) 3.4 % (20.0-44.0); MEAN CORPUSCULAR HGB CONC 33 g/dl (31.0-36.0); MEAN CORPUSCULAR VOLUME 88 fL (80-96); MONOCYTES # (AUTO) 1.1 /CMM (0.1-1.30); MONOCYTES % (AUTO) 9.1 % (2.0-12.0); NEUTROPHILS # (AUTO) 10.9 /CMM (1.8-8.9); NEUTROPHILS % (AUTO) 86.2 % (43.0-81.0); PLATELET COUNT (AUTO) 420 /CMM (150-450); RED BLOOD CELL COUNT(AUTO) 2.66 MIL/uL (4.5-6.0); WHITE BLOOD COUNT (AUTO) 12.6 K/uL (4.3-11.0)
[2019-09-01 04:36] LABS: ALBUMIN 1.5 g/dL (3.4-5.0); BILIRUBIN,DIRECT 0.5 mg/dL (0.0-0.2); BILIRUBIN,TOTAL 0.8 mg/dL (0.2-1.0); CALCIUM, SERUM 7.7 mg/dL (8.5-10.1); MAGNESIUM 2.1 mg/dL (1.8-2.4); POTASSIUM 4.1 mmol/L (3.5-5.1); TOTAL PROTEIN, SERUM 5.7 g/dL (6.4-8.2)
[2019-09-01] MEDS: LORAZEPAM INJ 2 MG/ML VIAL IV PRN ×3 (04:47→22:46)
[2019-09-01 04:53] LABS: CREATININE 8.2 mg/dL (0.6-1.3)
[2019-09-01] MEDS: BLOOD SUGAR DIAGNOSTIC 1 EACH STRIP IN SCH ×3 (05:32→17:09)
--- NOTE | 2019-09-01 06:06 | NUR ---
TOTAL VOLUME FOR DRAINS ARE: TERENCE DRAIN- 20 ML ACCORDION DRAIN- 0 ML NEPHROSTOMY- 150 ML COLOSTOMY- 20 ML RAMÍREZ CATHETER- 85 ML
--- NOTE | 2019-09-01 06:07 | NUR ---
ENDORSED CARE TO [facility] FOR CONTINUITY OF CARE. PATIENT REMAINS IN NO ACUTE DISTRESS IN BED. PATIENT DID NOT HAVE ANY SIGNIFICANT CHANGE IN CONDITION DURING SHIFT. PATIENT TOLERATED VENT SETTING WELL. ALL NEEDS MET, ALL ORDERS CARRIED OUT.
--- NOTE | 2019-09-01 07:37 | NUR ---
VENT CHANGES BELOW FOR WEANING TRIAL PER DR. HEATH: SIMV 4 VT 450 PS 15 FIO2 40% PEEP +5 Addendum: 09/01/19 at 0738 by VICKY GOLDSMITH RT Amended: Links added.
--- NOTE | 2019-09-01 08:10 | NUR ---
pt is on SIMV mode, tolerating now.
[2019-09-01 08:52] LABS: ABG BASE EXCESS -3.7 mmol/L; ABG OXYGEN SATURATION 97.4 % (92.0-98.5); ABG PCO2 34.9 mmHg (35.0-45.0); ABG PH 7.392 (7.350-7.450); AaDO2 132.1 mmHg; COHb 0.3 % (0.5-1.5); MetHb 0.5 % (0.0-1.5); O2Hb 96.6 % (94.0-97.0); PEEP,BG 5 cm H2O; SITE, ABG A-Line; VENT MODE, BG SIMV 4/ PS 15; VT, ABG 450 mL
--- NOTE | 2019-09-01 08:57 | NUR ---
received pt from hourly shift, lethargic, does not follows commands, ST, trach, on the vent, lungs partially congested, BL hand edema, A line and CVP lines, NG to feeding poorly tolerated, 150cc of residual, TERENCE and accordion drain intact, nephrostomy - some urine, L colostomy, f/c very little urine, HD patient, TPN at 60cc/hr, v/s stable, no pain, pt turned and repositioned.
[2019-09-01] MEDS: FAMOTIDINE/PF INJ 20 MG/2 ML VIAL IV SCH ×2 (09:47→21:16)
--- NOTE | 2019-09-01 10:05 | NUR ---
placed back to AC 24, vt 450, fio2 40%, peep +5 due to 36 Respiratory rate. rn notified on changes. Addendum: 09/01/19 at 1006 by VICKY GOLDSMITH RT Amended: Links added.
--- NOTE | 2019-09-01 11:00 | NUR ---
pt became tachypneic and tachycardic. Back to AC mode per Dr Edward.
--- NOTE | 2019-09-01 15:25 | NUR ---
place back on parameters below per dr. Edward: simv 4 ps 15 vt 450 fio2 40% peep +5 Addendum: 09/01/19 at 1526 by VICKY GOLDSMITH RT Amended: Links added.
--- NOTE | 2019-09-01 17:06 | NUR ---
pt is resting in the bed, lethargic, does not follow command, on and off of SIMV mode, v/s stable, morphine given for pain, pt cleaned, changed and repositioned q2hrs, family at the bedside.
--- NOTE | 2019-09-01 19:00 | NUR ---
RECEIVED PATIENT WITH TRACHEOSTOMY TO THE VENTILATOR ON SIMV MODE,LETHARGIC,WITH PERIODS OF AGITATION(GETS TACHYPNEIC AND TACHYCARDIC WHEN AGITATED) OPENS EYES,MOVES ALL EXTREMITIES,(WITH BILATERAL SOFT WRIST RESTRAINTS TO PREVENT DECANNULATION). NOT IN ACUTE DISTRESS. ON TPN VIA PICC LINE @ CHENCHO, ARTERIAL LINE @ RIGHT FEMORAL AREA WITH APPROPRIATE WAVEFORM AND GOOD BLOOD RETURN,DIALYSIS CATHETER @ LEFT FEMORAL AREA. NID ABDOMINAL SURGICAL INCISION WITH DRESSING DRY AND INTACT(-) BLEEDING. TERENCE DRAIN TO BULB SUCTION @ LLQ WITH SEROSANGUINEOUS DRAINAGE, NEPHROSTOMY TUBE @ LEFT LATERAL WITH YELLOWISH DRAINAGE, COLOSTOMY TUBE @ LLQ WITH LIGHT BROWNISH ,LIQUIDY DRAINAGE, RIGHT ABDOMINAL DRAIN TO VAC(ACCORDION)DRAIN WITH MINIMAL YELLOWISH DRAINAGE.NGT VIA RIGHT NARES WITH ONGOING FEEDING,(ASPIRATION PRECAUTION ),WILL MONITOR RESIDUALS.
[2019-09-01] MEDS: diphenhydrAMINE HCL 50 MG/ML VIAL IV PRN (22:20)
--- NOTE | 2019-09-01 22:20 | NUR ---
PATIENT RESTLESS,RUBBING LOWER EXTREMITIES UP AND DOWN(PATIENT HAS RASHES ALL OVER HIS BODY) ASSUMING PATIENT IS ITCHY, PRN BENADRYL IV GIVEN.
--- NOTE | 2019-09-01 22:45 | NUR ---
PATIENT STILL RESTLESS/AGITATED (QY=182,BP 160'S -170'S SYSTOLIC DUE TO AGITATION.PRN ATIVAN GIVEN.
[2019-09-02] VITALS (32 sets, daily range): BP systolic 113–159; BP diastolic 40–101
--- NOTE | 2019-09-02 | NUR ---
CALM BUT STILL GETS RESTLESS OCCASIONALLY, AND GETS TACHYPNEIC WITH LABORED BREATHING .NOTED COPIOUS AMOUNT OF THICK PURULENT SECRETIONS AROUND TRACHE STOMA, TRACHE CARE DONE.
[2019-09-02] MEDS: BLOOD SUGAR DIAGNOSTIC 1 EACH STRIP IN SCH ×4 (00:29→17:37)
[2019-09-02] MEDS: MORPHINE SULFATE INJ 4 MG/ML DISP.SYRIN IV PRN ×5 (01:45→23:00)
--- NOTE | 2019-09-02 03:00 | NUR ---
AM BATH DONE, PATIENT TACHYPNEIC WITH VERY LABORED BREATHING AFTER AM CARE( DOES NOT TOLERATE SIMV WHEN PLACED ON FLAT POSITION /TURNING/MOVING). PLACED ON AC MODE POST AM CARE. PRN ATIVAN GIVEN PATIENT STILL WITH LABORED BREATHING/TACHYPNEIC EVEN AFTER PLACING ON AC MODE.
[2019-09-02] MEDS: LORAZEPAM INJ 2 MG/ML VIAL IV PRN ×2 (03:08→12:33)
[2019-09-02 04:21] LABS: BASOPHILS % (AUTO) 0.3 % (0.0-2.0); EOSINOPHILS % (AUTO) 1.2 % (0.0-6.0); HEMATOCRIT 22 % (39-51); HEMOGLOBIN 7.4 g/dL (13.5-17.5); LYMPHOCYTES # (AUTO) 0.5 /CMM (0.8-4.8); LYMPHOCYTES % (AUTO) 4.5 % (20.0-44.0); MEAN CORPUSCULAR HGB CONC 33 g/dl (31.0-36.0); MEAN CORPUSCULAR VOLUME 88 fL (80-96); MONOCYTES # (AUTO) 1.4 /CMM (0.1-1.30); NEUTROPHILS # (AUTO) 9.5 /CMM (1.8-8.9); PLATELET COUNT (AUTO) 415 /CMM (150-450); RED BLOOD CELL COUNT(AUTO) 2.53 MIL/uL (4.5-6.0); WHITE BLOOD COUNT (AUTO) 11.6 K/uL (4.3-11.0)
[2019-09-02 04:34] LABS: CALCIUM, SERUM 8.1 mg/dL (8.5-10.1); PHOSPHORUS 6.4 mg/dL (2.5-4.9); POTASSIUM 4.1 mmol/L (3.5-5.1)
[2019-09-02 04:36] LABS: CREATININE 7.7 mg/dL (0.6-1.3)
[2019-09-02] MEDS ORDERED: TPN BAG #15 IV PRN ×2 (06:00)
--- NOTE | 2019-09-02 06:30 | NUR ---
DR. BERNARDO MADE AWARE THAT PATIENT HAVING A LOT OF FEEDING RESIDUALS (140-150 ML FOR A RATE AT 15 ML /HR) , PER HIM PATIENT NOT ABSORBING ANYTHING ,VERBALLY ORDERED TO STOP FEEING.
--- NOTE | 2019-09-02 07:00 | NUR ---
STATUS UNCHANGED, LETHARGIC WITH PERIODS OF AGITATION . FEEDING OFF,STILL ON TPN. REPORT GIVEN TO PATRICIA MANN
--- NOTE | 2019-09-02 07:12 | NUR ---
PORTER SAMPLE CASE INITIAL NOTES Rec'd pt on bed, lethargic, not in any distress. On MV via ETT, SIMV mode sating at 100%. On telemonitor, Has NGT on L nare, clamped for now d/t high gastric residual from previous shift (per report >150cc). Has L colostomy bag in place w/ light brownish liquid output. Has FC draining to BSB w/ minimal UOP. Has TERENCE drain#1 serosanguineous. Has accordion pigtail on R side abdomen, serosanguineous. Has L nephrostomy tube in place w/ light brownish output. Has CHENCHO PICC line w/ TPN x 60 cc/hr. Has L femoral HD cath in place. Has R femoral A-line intact. Has sx incision on abdomen w/ latonia. Safety precaution in place w/ bed in lowest & locked pos. Call light placed w/in reach. Will cont to monitor & attend pt needs.
[2019-09-02] MEDS ORDERED: TPN BAG #16 IV PRN ×4 (07:30)
[2019-09-02] MEDS ORDERED: TPN BAG #17 IV PRN ×2 (07:30)
[2019-09-02] MEDS: FAMOTIDINE/PF INJ 20 MG/2 ML VIAL IV SCH ×2 (08:10→20:52)
--- NOTE | 2019-09-02 08:35 | NUR ---
Pt seen & examined by Dr. Edward, updated about pt status.
--- NOTE | 2019-09-02 09:00 | NUR ---
Pt seen & examined by SANTA Zheng. Awaiting for KUB results. Made aware that NGT TF held d/t high gastric residuals.
[2019-09-02] MEDS: diphenhydrAMINE HCL 50 MG/ML VIAL IV PRN ×2 (09:31→20:13)
[2019-09-02] MEDS: INSULIN REGULAR, HUMAN 100 UNIT/ML 3 ML VIAL SQ PRN ×2 (12:12→17:37)
[2019-09-02] MEDS: METOCLOPRAMIDE HCL 10 MG/2 ML VIAL IV SCH ×2 (13:56→20:00)
--- NOTE | 2019-09-02 13:56 | NUR ---
Advanced NGT by 9cm per KUB report & per Pat BULLDOZER/LOADER/COMPACTOR/SCRAPER ordered. + gurgling sound upon auscultation & gastric residual 100 cc per aspiration. Per Pat BULLDOZER/LOADER/COMPACTOR/SCRAPER, give reglan first then after 4 hrs recheck gastric residual if <150, restart TF.
--- NOTE | 2019-09-02 16:00 | NUR ---
TF restarted, checked gastric residuals prior restarting 10cc.
[2019-09-02] MEDS: Z GUARD REMEDY 2 OZ OINT TP PRN (17:37)
--- NOTE | 2019-09-02 18:00 | NUR ---
DRAINS REPORT R Accordion Pigtail: 20 cc serosanguineous (level 30cc) R TERENCE drain #1: 10 cc serosanguineous L nephrostomy tube: 250 cc tea colored L colostomy: 20 cc light brownish
--- NOTE | 2019-09-02 18:07 | NUR ---
RT NOTE PT REMAINS MECHANICALLY VENTILATED VIA CUFFED TRACHEOSTOMY TUBE. CUFF INFLATED. TRACH TUBE MIDLINE AND SECURE. VENTILATOR SETTINGS PRESCRIBED. ALARMS SET PER PROTOCOL AND AUDIBLE. VENT PLUGGED IN TO RED OUTLET. AMBU BAG AT BED SIDE. NO DISTRESS NOTED. Addendum: 09/02/19 at 1808 by SWEETIE CARTER RT Amended: Links added.
--- NOTE | 2019-09-02 18:44 | NUR ---
RADIATION CONTROL SPECIALIST CLOSING NOTES Pt resting on bed, not in any distress. Tolerating current SIMV vent settings, no SOB at this time. On Nepro TF x 10cc/hr via L NGT. IV line access kept patent & intact w/ no s/sx of infection/infiltration. Drains in place, monitored output & recorded. Wound care done on Sx site on abdomen as ordered. TPN x 60cc/hr. Off pressor, BP monitored closely. Safety precaution kept in place w/ bed in lowest & locked pos. Will endorse to PM RN for THOMAS.
--- NOTE | 2019-09-02 19:00 | NUR ---
RN OPENING NOTES RECEIVED PATIENT IN BED, LETHARGIC AND RESTLESS. ON TELE MONITOR SINUS TACHY WITH HR 115. [facility]: SHILEY 8, AC 4, TV 450, FIO2 40%, PEEP OF 5, SATURATING 100% AT THE MOMENT. NO RESPIRATORY OR SOB NOTED. NGT LEFT NARE, TUBE FEEDING RUNNING AT 10CC/HR, RESIDUAL 10CC NOTED. IV SITE CHENCHO PICC WITH TPN RUNNING AT 60ML/HR, NO INFILTRATION NOTED, SITE C/D/I. LEFT REMORAL HD CATH IN PLACE, RIGHT FEM A-LINE INTACT. LEFT COLOSTOMY BAG NOTED WITH BROWNISH LIQUID OUTPUT. RAMÍREZ CATH DRAINING WELL WITH MINIMAL OUTPUT NOTED. RIGHT TERENCE DRAIN #1 NOTED WITH SEROSANGUINEOUS DRAINAGE. ACCORDION PIG TAIL NOTED ON RIGHT SIDE OF ABDOMEN DRAINING SEROSANGUINEOUS. LEFT NEPHROSTOMY TUBE IN PLACE, DRAINING WELL. BI SOFT WRIST RESTRAINTS NOTED. SAFETY MEASURES IN PLACE; HOB ELEVATED, CALL LIGHT WITHIN REACH, SIDE RAILS UP X2, BED LOCKED AND IN LOW POSITION. WILL CONT TO MONITOR PT CLOSELY.
[2019-09-03] VITALS (43 sets, daily range): BP systolic 103–169; BP diastolic 56–114
[2019-09-03] MEDS: BLOOD SUGAR DIAGNOSTIC 1 EACH STRIP IN SCH ×5 (00:15→23:48)
--- NOTE | 2019-09-03 01:37 | NUR ---
SAW SETTER RECEIVED THE REPORT FROM SAM RN , TRACH TO VENT CONNECTED, PT OPEN EYED. DOES NOT FOLLOW COMMANDS, SOCIAL PSYCHOLOGIST SHOWING NSR, SHILEY 8,SIMV 4,FIO2 40%,PEEP 5. SAT 98%, NO ACUTE DISTRESS NOTED, FC PATENT. LT NEPHROSTOMY TUBE ,INTACT. TERENCE DRAIN AND IR DRAIN INTACT, LT NARE NGT INTACT, NEPRO 10ML/H, RT UPPER ARM PICC LINE RT FEMORAL JAD. LT FEMORAL HD CATH, TPN 60ML/H, HOB ELEVATED, TURN AND REPOSITION Q2H,WILL CONTINUE TO MONITOR VITALS.
[2019-09-03] MEDS: ACETAMINOPHEN 650 MG/SUPP.RECT RC PRN ×2 (02:01→21:14)
[2019-09-03] MEDS: METOCLOPRAMIDE HCL 10 MG/2 ML VIAL IV SCH ×4 (02:01→19:42)
[2019-09-03 04:27] LABS: BASOPHILS % (AUTO) 0.1 % (0.0-2.0); EOSINOPHILS % (AUTO) 1.9 % (0.0-6.0); HEMATOCRIT 23 % (39-51); HEMOGLOBIN 7.6 g/dL (13.5-17.5); LYMPHOCYTES % (AUTO) 7.5 % (20.0-44.0); MEAN CORPUSCULAR HGB CONC 33 g/dl (31.0-36.0); MEAN CORPUSCULAR VOLUME 87 fL (80-96); MONOCYTES # (AUTO) 1.7 /CMM (0.1-1.30); MONOCYTES % (AUTO) 13.6 % (2.0-12.0); NEUTROPHILS # (AUTO) 9.9 /CMM (1.8-8.9); NEUTROPHILS % (AUTO) 76.9 % (43.0-81.0); PLATELET COUNT (AUTO) 445 /CMM (150-450); RED BLOOD CELL COUNT(AUTO) 2.63 MIL/uL (4.5-6.0); WHITE BLOOD COUNT (AUTO) 12.9 K/uL (4.3-11.0)
--- NOTE | 2019-09-03 04:48 | NUR ---
CENTRAL STERILIZATION TECHNICIAN/ AM CARE. ORAL CARE, BED BATH GIVEN. LINEN CHANGED. REMAINING SAME VENT SETTING TOLERATED WELL. SAT 98%. JEWEL SAWYER SHOWING S TACH. FC PATENT. TERENCE #1M IR TUBE AND NEPHROSTOMY TUBE INTACT, HOB ELEVATED, WADE SOFT WRIST RESTRAINT CHECKED AAAAND RELEASED. NO INJURY OR REDNESS NOTED, JEWEL SAWYER SHOWING S TACH, TURN AND REPOSITION Q2H. WILL CONTINUE TO MONITOR VITALS,
[2019-09-03 04:52] LABS: CALCIUM, SERUM 8.2 mg/dL (8.5-10.1); MAGNESIUM 2.2 mg/dL (1.8-2.4); PHOSPHORUS 7.3 mg/dL (2.5-4.9); POTASSIUM 4.4 mmol/L (3.5-5.1)
[2019-09-03 04:54] LABS: CREATININE 9.3 mg/dL (0.6-1.3)
[2019-09-03] MEDS: LORAZEPAM INJ 2 MG/ML VIAL IV PRN ×2 (04:58→13:46)
--- NOTE | 2019-09-03 06:12 | NUR ---
HAND SAMPLE MAKER. FC URINE OUT PUT IS 100 ONLY. NEPHROSTOMY OUT PUT 350ML. IR 0,TERENCE 0
--- NOTE | 2019-09-03 07:12 | NUR ---
SENIOR CLINICAL DATA ANALYST INITIAL NOTES Rec'd pt on bed, lethargic, not in any distress. On MV via ETT, SIMV mode sating at 100%, slight tachypneic. On telemonitor, . Has NGT on L nare, on TF Nepro x 15 cc/hr. Has L colostomy bag in place w/ light brownish liquid output. Has FC draining to BSB w/ minimal UOP. Has TERENCE drain#1 serosanguineous. Has accordion pigtail on R side abdomen, serosanguineous. Has L nephrostomy tube in place w/ light brownish output. Has CHENCHO PICC line w/ TPN x 60 cc/hr. Has L femoral HD cath in place. Has R femoral A-line intact. Has sx incision on abdomen w/ latonia. Safety precaution in place w/ bed in lowest & locked pos. Call light placed w/in reach. Will cont to monitor & attend pt needs.
[2019-09-03] MEDS ORDERED: TPN BAG #18 IV PRN ×4 (07:30)
[2019-09-03] MEDS: diphenhydrAMINE HCL 50 MG/ML VIAL IV PRN ×2 (07:56→19:42)
[2019-09-03] MEDS: FAMOTIDINE/PF INJ 20 MG/2 ML VIAL IV SCH ×2 (08:27→21:13)
[2019-09-03] MEDS: Z GUARD REMEDY 2 OZ OINT TP PRN (08:28)
[2019-09-03] MEDS: MORPHINE SULFATE INJ 4 MG/ML DISP.SYRIN IV PRN ×3 (08:54→21:17)
--- NOTE | 2019-09-03 11:20 | NUR ---
Pt seen & examined by Dr. Edward, updated about status.
--- NOTE | 2019-09-03 11:35 | NUR ---
Pt seen & examined by Dr. Ivan, updated about pt status. Per , may start w/ Hydralazine 10mg q4h PRN for SBP >170. Addendum: 09/03/19 at 1857 by PATRICIA MAGDALENO RN Addendum: per Dr. Ivan, may remove A-line. Pressure dressing applied, no bleeding noted from site.
[2019-09-03] MEDS: INSULIN REGULAR, HUMAN 100 UNIT/ML 3 ML VIAL SQ PRN ×2 (12:48→18:07)
--- NOTE | 2019-09-03 16:00 | NUR ---
HD done w/ 1.2 L output.
--- NOTE | 2019-09-03 16:10 | NUR ---
Pt abdomen noted to be distended & firm w/ tenderness upon palpation. Notified Dr. Ivan w/ orders to do STAT KUB.
--- NOTE | 2019-09-03 17:51 | NUR ---
Dr. Ivan notified of the KUB results w/ orders to do small bowel follow through w/ both gastrograffin & barium to be done tonight (STAT). Rec'd call from rad dept, spoke w/ Heriberto stated that no radiologist available over the weekend & will do procedure by Thursday AM. Dr. Ivan made aware, MD wanted to be done tomorrow. Called again Heriberto & stated that he will endorse to police shift commander to coordinate w/ the special effects person radiologist to have this procedure done tomorrow AM.
--- NOTE | 2019-09-03 18:00 | NUR ---
Pt seen & examined by Woody PRATT. Per SURGICAL CODER, do panculture if T 101.
--- NOTE | 2019-09-03 18:00 | NUR ---
DRAINS REPORT R Accordion Pigtail: flushed line w/ NS 10cc, level 30 cc - no output w/in shift R TERENCE drain #1: 15 cc serosanguineous L nephrostomy tube: 400 cc yellowish L colostomy: 30 cc light brownish, + flatus
--- NOTE | 2019-09-03 18:54 | NUR ---
BEVEL MILL OPERATOR CLOSING NOTES Pt resting on bed, not in any distress. Tolerating current SIMV vent settings, no SOB at this time. TF held for now as ordered. IV line access kept patent & intact w/ no s/sx of infection/infiltration. Drains in place, monitored output & recorded. Wound care done on Sx site on abdomen as ordered. TPN x 60cc/hr. Off pressor, BP monitored closely. Safety precaution kept in place w/ bed in lowest & locked pos. Will endorse to PM RN for THOMAS.
--- NOTE | 2019-09-03 19:05 | NUR ---
RN OPENING NOTES RECEIVED PATIENT IN BED, LETHARGIC AND RESTLESS. ON TELE MONITOR SINUS TACHY WITH HR 118. ON MECH VENT TRACH SETTINGS: SHILEY 8, SIMV 4, TV 450, FIO2 40%, PEEP OF 5, SATURATING 97% AT THE MOMENT. NGT LEFT NARE, CLAMPED. IV SITE CHENCHO PICC WITH TPN RUNNING AT 60ML/HR, NO INFILTRATION NOTED, SITE C/D/I. LEFT REMORAL HD CATH IN PLACE AND INTACT. LEFT COLOSTOMY BAG NOTED WITH BROWNISH LIQUID OUTPUT. RAMÍREZ CATH DRAINING WELL WITH MINIMAL OUTPUT NOTED. RIGHT TERENCE DRAIN #1 NOTED WITH SEROSANGUINEOUS DRAINAGE. ACCORDION PIG TAIL NOTED ON RIGHT SIDE OF ABDOMEN DRAINING SEROSANGUINEOUS. LEFT NEPHROSTOMY TUBE IN PLACE, DRAINING WELL. BI SOFT WRIST RESTRAINTS NOTED. SAFETY MEASURES IN PLACE; HOB ELEVATED, CALL LIGHT WITHIN REACH, SIDE RAILS UP X2, BED LOCKED AND IN LOW POSITION. WILL CONT TO MONITOR PT CLOSELY.
--- NOTE | 2019-09-03 20:24 | NUR ---
RECEIVED PT TRACH ON VENT. PT TOLERATING SIMV NO DISTRESS. SX'D FOR SML AMT OF THICK WHITE SECRETIONS. VENT ALARMS SET AND AUDIBLE. TRACH SECURE CUFF RESOURCE TEACHER. CONTINUE [facility] VENT SUPPORT. Addendum: 09/03/19 at 2025 by ARSH HESTER RT Amended: Links added.
--- NOTE | 2019-09-03 21:20 | NUR ---
RN NOTES PATIENT TEMP 100.9; COOLING MEASURES IN PLACE AND PRN TYLENOL 650MG RC GIVEN. WILL CONT TO MONITOR PT TEMP CLOSELY.
[2019-09-04] VITALS (55 sets, daily range): BP systolic 98–176; BP diastolic 29–94
[2019-09-04] MEDS: LORAZEPAM INJ 2 MG/ML VIAL IV PRN ×3 (00:38→20:03)
[2019-09-04] MEDS: METOCLOPRAMIDE HCL 10 MG/2 ML VIAL IV SCH ×4 (02:19→20:04)
[2019-09-04 04:42] LABS: BASOPHILS % (AUTO) 0.2 % (0.0-2.0); EOSINOPHILS % (AUTO) 2.4 % (0.0-6.0); LYMPHOCYTES # (AUTO) 0.6 /CMM (0.8-4.8); LYMPHOCYTES % (AUTO) 6.3 % (20.0-44.0); MEAN CORPUSCULAR HGB CONC 33 g/dl (31.0-36.0); MEAN CORPUSCULAR VOLUME 86 fL (80-96); MONOCYTES # (AUTO) 1.3 /CMM (0.1-1.30); MONOCYTES % (AUTO) 14.3 % (2.0-12.0); NEUTROPHILS # (AUTO) 6.9 /CMM (1.8-8.9); NEUTROPHILS % (AUTO) 76.8 % (43.0-81.0); PLATELET COUNT (AUTO) 371 /CMM (150-450); RED BLOOD CELL COUNT(AUTO) 2.35 MIL/uL (4.5-6.0)
[2019-09-04 04:46] LABS: CALCIUM, SERUM 7.8 mg/dL (8.5-10.1); PHOSPHORUS 6.3 mg/dL (2.5-4.9)
[2019-09-04 04:48] LABS: HEMATOCRIT 20 % (39-51)
[2019-09-04 04:49] LABS: HEMOGLOBIN 6.7 g/dL (13.5-17.5)
[2019-09-04 04:58] LABS: CREATININE 7.9 mg/dL (0.6-1.3)
--- NOTE | 2019-09-04 05:11 | NUR ---
RN NOTES CRITICAL LAB HGB 6.7; MADE AWARE AND ORDERED TO TRANSFUSE 1 UNIT PRBC. WILL ATTEND TO MD ORDERS.
[2019-09-04] MEDS: BLOOD SUGAR DIAGNOSTIC 1 EACH STRIP IN SCH ×3 (06:01→17:27)
[2019-09-04] MEDS: diphenhydrAMINE HCL 50 MG/ML VIAL IV PRN (06:22)
[2019-09-04] MEDS ORDERED: TPN BAG #19 IV PRN ×2 (07:00)
[2019-09-04] MEDS ORDERED: TPN BAG #20 IV PRN ×4 (07:00)
--- NOTE | 2019-09-04 07:10 | NUR ---
EXHAUST AND MUFFLER FITTER INITIAL NOTES Rec'd pt on bed, lethargic, not in any distress. On MV via ETT, SIMV mode sating at 100%, slight tachypneic. On telemonitor, Has NGT on L nare, clamped. Abdomen still distended, firm & tender. Has FC draining to BSB w/ minimal UOP. Has TERENCE drain#1 serosanguineous. Has accordion pigtail on R side abdomen, serosanguineous. Has L nephrostomy tube in place w/ yellowish output. Has CHENCHO PICC line w/ TPN x 60 cc/hr. Has L femoral HD cath in place. Has sx incision on abdomen w/ latonia. Safety precaution in place w/ bed in lowest & locked pos. Call light placed w/in reach. Will cont to monitor & attend pt needs.
--- NOTE | 2019-09-04 07:15 | NUR ---
RN CLOSING NOTES PATIENT IN BED, LETHARGIC. ON TELE MONITOR SINUS TACHY WITH HR 110'S. ON MECH VENT TRACH SETTINGS: SHILEY 8, SIMV 4, TV 450, FIO2 40%, PEEP OF 5, SATURATING 98% AT THE MOMENT. NGT LEFT NARE, CLAMPED. IV SITE CHENCHO PICC WITH TPN RUNNING AT 60ML/HR, NO INFILTRATION NOTED, SITE C/D/I. LEFT REMORAL HD CATH IN PLACE AND INTACT. LEFT COLOSTOMY BAG NOTED WITH BROWNISH LIQUID OUTPUT. RAMÍREZ CATH DRAINING WELL WITH MINIMAL OUTPUT NOTED. RIGHT TERENCE DRAIN #1 NOTED WITH SEROSANGUINEOUS DRAINAGE. ACCORDION PIG TAIL NOTED ON RIGHT SIDE OF ABDOMEN DRAINING SEROSANGUINEOUS. LEFT NEPHROSTOMY TUBE IN PLACE, DRAINING WELL. BI SOFT WRIST RESTRAINTS NOTED AND VISUALLY CHECKED PER PROTOCOL. ALL MD ORDERS ATTENDED, ALL NEEDS ANTICIPATED AND MET. SAFETY MEASURES IN PLACE; HOB ELEVATED, CALL LIGHT WITHIN REACH, SIDE RAILS UP X2, BED LOCKED AND IN LOW POSITION. ENDORSED TO AM RN FOR THOMAS.
--- NOTE | 2019-09-04 07:30 | NUR ---
Called Jordin from rad dept, re: follow up SBFT - said they will do it today.
--- NOTE | 2019-09-04 07:45 | NUR ---
RT PATIENT REC'D TRACHED ON [facility] VENT WITH NOTED SETTINGS JOANNA WELL. ALARMS CHECKED + AUDIBLE. AMBU BAG AT HOB Addendum: 09/04/19 at 1352 by NEMO VEGA RT Amended: Links added.
[2019-09-04] MEDS: FAMOTIDINE/PF INJ 20 MG/2 ML VIAL IV SCH ×2 (08:05→20:04)
[2019-09-04] MEDS: ACETAMINOPHEN 650 MG/SUPP.RECT RC PRN (08:33)
--- NOTE | 2019-09-04 09:30 | NUR ---
While transfusing PRBC, Temp 101. Dr. Ott notified, per MD to continue transfusing PRBC.
--- NOTE | 2019-09-04 10:00 | NUR ---
Per Dr. Edward order CT scan of the abdomen & pelvis w/o contrast STAT.
--- NOTE | 2019-09-04 10:10 | NUR ---
Called Dr. Cindy Dunn, updated about pt status - pt abdomen is distended, firm & tender. Held TF since yesterday, SBFT was ordered (ok for just gastrograffin only), & CT abd/pelv w/o contrast. No NNO at this time.
[2019-09-04] MEDS: MORPHINE SULFATE INJ 4 MG/ML DISP.SYRIN IV PRN ×2 (11:04→22:39)
--- NOTE | 2019-09-04 11:14 | NUR ---
Relayed to Dr. Ivan re: CT abd/pelv result.
--- NOTE | 2019-09-04 11:15 | NUR ---
Pt seen & examined by Dr. Edward, updated about pt status.
[2019-09-04] MEDS ORDERED: DIATR MEGLU/DIATRIZOATE SODIUM 120 ML BOTTLE (GASTROGRAPHIN) ONE (11:23)
[2019-09-04] MEDS: INSULIN REGULAR, HUMAN 100 UNIT/ML 3 ML VIAL SQ PRN ×2 (12:36→17:27)
--- NOTE | 2019-09-04 15:00 | NUR ---
Consent for US Thoracentesis of the R lung secured c/o dtr Mila, placed in the chart.
--- NOTE | 2019-09-04 17:15 | NUR ---
Pt seen & examined by Woody PRATT, updated about pt status. Aware of the L arm redness. Carried out INTERACTIVE VIDEO TECHNICIAN orders.
[2019-09-04] MEDS ORDERED: DOSING PER PHARMACY-AMIKACI IV XX PRN (17:30)
[2019-09-04] MEDS ORDERED: FEE PK DOSING 1 MIN EA MC ONE ×2 (17:46)
--- NOTE | 2019-09-04 18:00 | NUR ---
DRAINS REPORT R Accordion Pigtail: flushed line w/ NS 10cc, level 30 cc - no output w/in shift R TERENCE drain #1: 15 cc serosanguineous L nephrostomy tube: 480 cc pink tinged - Dr. Ivan made aware w/ NNO L colostomy: 1380 cc liquid, brownish, + flatus
--- NOTE | 2019-09-04 18:20 | NUR ---
Pt seen & examined by Dr. Ivan, updated about pt status. Aware of the L arm redness.
--- NOTE | 2019-09-04 18:41 | NUR ---
ABAP DEVELOPER CLOSING NOTES Pt resting on bed, not in any distress, more awake & responsive but poor concentration. Tolerating current SIMV vent settings, no SOB at this time but still w/ episode of tachypnea. NGT kept patent & intact, clamped. IV line access kept patent & intact w/ no s/sx of infection/infiltration. Drains in place, monitored output & recorded. L colostomy bag in place. Wound care done on Sx site on abdomen as ordered. TPN x 60cc/hr. Pt Safety precaution kept in place w/ bed in lowest & locked pos. Will endorse to PM RN for THOMAS. Pt for HD today c/o Tiffanie. Will endorse to the next RN to do blood culture from HD cath. Give sched Abx post HD.
--- NOTE | 2019-09-04 19:15 | NUR ---
WOOD PREPARATION SUPERVISOR NOTES HD NURSE MAGY AT BEDSIDE TO START HD TREATMENT
--- NOTE | 2019-09-04 19:30 | NUR ---
COMMISSION AGENT LIVESTOCK INITIAL SHIFT NOTES RECEIVED PATIENT IN BED, AWAKE, EYES OPEN, TRACKS OCCASIONALLY, BUT UNABLE TO FOLLOW SIMPLE COMMANDS, WITH PERIODS OF AGITATION MANIFESTED BY ELEVATED HEART RATE AND ELEVATED RESPIRATORY RATE. BILATERAL SOFT WRIST RESTRAINTS IN PLACE DUE TO HIGH SELF DECANNULATION RISK. RIGHT UPPER PICC INFUSING TPN @ 60, CVP MONITORING 8 AT THIS TIME. LEFT FEMORAL HD CATHETER IN PLACE, NO BLEEDING NOTED AT SITE. LEFT LATERAL NEPHROSTOMY TUBE DRAINING SCANT AMOUNT YELLOW/ANNY COLORED URINE, RAMÍREZ CATHETER WITH SCANT AMOUNT ANNY COLORED URINE. MID ABDOMINAL SURGICAL INCISION DRESSING INTACT, NO BLEEDING NOTED AT SITE, WITH TERENCE DRAIN X1, NOTED WITH MINIMAL SEROUS FLUID. COLOSTOMY BAG NOTED WITH MODERATE AMOUNT OF BROWN/GREEN COLORED LIQUID STOOL + FLATUS. SAFETY MEASURES IN PLACE, BED IN LOWEST AND LOCKED POSITION, HOB ELEVATED TO SEMIFOWLER'S POSITION, WILL CONTINUE TO CLOSELY MONITOR THE PATIENT
--- NOTE | 2019-09-04 20:32 | NUR ---
RECEIVED PT CHRIS LINCOLN #8 ON VENT. PT TOLERATING SIMV NO DISTRESS. SX'D FOR SML AMT OF THICK WHITE SECRETIONS. VENT ALARMS SET AND AUDIBLE. TRACH SECURE CUFF TRACTOR OPERATOR. CONTINUE [facility] VENT SUPPORT. Addendum: 09/04/19 at 2032 by ARSH HESTER RT Amended: Links added.
[2019-09-04] MEDS ORDERED: VANCOMYCIN 1 GM in IV D5W 250 ML IV ONE (21:00)
[2019-09-04] MEDS ORDERED: D5W IV ONE (22:00)
[2019-09-04] MEDS ORDERED: AMIKACIN IV ONE (22:00)
--- NOTE | 2019-09-04 22:00 | NUR ---
DIRECTOR INDUSTRIAL RELATIONS NOTES HD COMPLETED, 1190ML OUTPUT. PATIENT TOLERATED WELL, WILL ADMINISTER VANCOMYCIN AND AMIKACIN IV ORDERED
[2019-09-05] VITALS (39 sets, daily range): BP systolic 99–167; BP diastolic 48–95
[2019-09-05] MEDS: diphenhydrAMINE HCL 50 MG/ML VIAL IV PRN (00:04)
[2019-09-05] MEDS: BLOOD SUGAR DIAGNOSTIC 1 EACH STRIP IN SCH ×4 (00:07→18:00)
[2019-09-05] MEDS: LORAZEPAM INJ 2 MG/ML VIAL IV PRN ×3 (00:11→17:43)
[2019-09-05] MEDS: INSULIN REGULAR, HUMAN 100 UNIT/ML 3 ML VIAL SQ PRN (00:14)
[2019-09-05] MEDS: METOCLOPRAMIDE HCL 10 MG/2 ML VIAL IV SCH ×4 (00:45→17:43)
[2019-09-05] MEDS: hydrALAZINE HCL IV 20 MG VIAL IV PRN (01:46)
[2019-09-05] MEDS: ACETAMINOPHEN 650 MG/SUPP.RECT RC PRN (01:46)
[2019-09-05] MEDS: MORPHINE SULFATE INJ 4 MG/ML DISP.SYRIN IV PRN ×2 (02:48→10:38)
[2019-09-05 04:46] LABS: BASOPHILS % (AUTO) 0.3 % (0.0-2.0); EOSINOPHILS % (AUTO) 2.8 % (0.0-6.0); LYMPHOCYTES # (AUTO) 0.7 /CMM (0.8-4.8); LYMPHOCYTES % (AUTO) 5.4 % (20.0-44.0); MEAN CORPUSCULAR HGB CONC 33 g/dl (31.0-36.0); MEAN CORPUSCULAR VOLUME 88 fL (80-96); MONOCYTES # (AUTO) 2.1 /CMM (0.1-1.30); NEUTROPHILS # (AUTO) 9.8 /CMM (1.8-8.9); NEUTROPHILS % (AUTO) 75.5 % (43.0-81.0); PLATELET COUNT (AUTO) 423 /CMM (150-450); WHITE BLOOD COUNT (AUTO) 12.9 K/uL (4.3-11.0)
[2019-09-05 05:03] LABS: CALCIUM, SERUM 8.8 mg/dL (8.5-10.1); CREATININE 6.4 mg/dL (0.6-1.3); MAGNESIUM 1.8 mg/dL (1.8-2.4); PHOSPHORUS 4.7 mg/dL (2.5-4.9); POTASSIUM 3.8 mmol/L (3.5-5.1)
[2019-09-05 05:11] LABS: HEMOGLOBIN 5.7 g/dL (13.5-17.5); RED BLOOD CELL COUNT(AUTO) 1.98 MIL/uL (4.5-6.0)
[2019-09-05 05:14] LABS: HEMATOCRIT 17 % (39-51)
[2019-09-05 05:22] LABS: EOSINOPHILS % (MANUAL) 3 % (0-4); LYMPHOCYTES % (MANUAL) 9 % (16-48); MONOCYTES % (MANUAL) 5 % (0-11.0); NEUTROPHILS % (MANUAL) 83 (42-76)
--- NOTE | 2019-09-05 05:57 | NUR ---
PEN OR PENCIL ASSEMBLY MACHINE OPERATOR NOTES RECEIVED CALL FROM LAB REGARDING CRITICAL LAB VALUES HGB 5.7/HCT 17. RESULTS RELAYED TO DR TRINH, WITH NEW ORDER RECEIVED TO TRANSFUSE 1 UNIT OF PRBC.
--- NOTE | 2019-09-05 06:00 | NUR ---
DRAINS RIGHT ACCORDION: NO OUTPUT (MARKED/INITIALED AT 30ML LINE) LEFT NEPHROSTOMY: 100ML YELLOW RAMÍREZ: 150ML YELLOW/ANNY TERENCE: 10ML SEROUS COLOSTOMY: 1550ML BROWN/GREEN LIQUID
--- NOTE | 2019-09-05 07:30 | NUR ---
RN NOTES RECEIVED PATIENT IN BED, AWAKE, EYES OPEN SPONTANEOUSLY, ABLE TO TRACK BUT UNABLE TO FOLLOW COMMANDS, NO VERBAL RESPONSE. NO SHORTNESS OF BREATH NOTED. TRACH TO VENT. TOLERATING CURRENT VENT SETTINGS. SINUS TACHY ON THE MONITOR WITH 101 AT THIS TIME. NO INDICATION O PAIN AT THIS TIME. BILATERAL SOFT WRIST RESTRAINT, REMOVE AND REPLACED, TO CHECK FOR SKIN INTEGRITY. RIGHT UPPER PICC IN PLACE, DRESSING CLEAN AND INTACT. TPN INFUSING @ 60 CC/HR, CVP MONITORING 14 AT THIS TIME. LEFT FEMORAL HD CATHETER IN PLACE. LEFT LATERAL NEPHROSTOMY TUBE DRAINING SCANT AMOUNT YELLOW URINE, RAMÍREZ CATHETER IN PLACE DRAINING VIA GRAVITY. MID ABDOMINAL SURGICAL INCISION WITH DRAIN, DRESSING SOILED BUT IS IN PLACE- WILL CHANGE. TERENCE DRAIN NOTED WITH MINIMAL SEROUS FLUID. COLOSTOMY BAG INTACT AND IN PLACE. HOB KEPT ELEVATED. SAFETY MEASURES IN PLACE, BED IN LOWEST AND LOCKED POSITION, HOB ELEVATED. WILL CONTINUE TO CLOSELY MONITOR THE PATIENT CLOSELY
[2019-09-05 08:28] LABS: ABG PCO2 31.2 mmHg (35.0-45.0); ABG PO2 138.5 mmHg (75.0-100.0); AaDO2 110.8 mmHg; COHb 0.2 % (0.5-1.5); MetHb 0.8 % (0.0-1.5); PEEP,BG 5 cm H2O; SITE, ABG Right Radial; VENT MODE, BG SIMV 4 / PS 15; VT, ABG 450 mL
[2019-09-05] MEDS: FAMOTIDINE/PF INJ 20 MG/2 ML VIAL IV SCH ×2 (08:52→20:09)
--- NOTE | 2019-09-05 09:45 | NUR ---
RN NOTES PATIENT HAD THORACENTESIS, 1600 OUT. PATIENT ABLE TO TOLERATE PROCEDURE WELL. NO SHORTNESS OF BREATH NOTED AFTERTHE PROCEDURE. NO PROFUSE BLEEDING FROM THE SITE.
[2019-09-05 10:29] LABS: BILIRUBIN,TOTAL 0.7 mg/dL (0.2-1.0)
--- NOTE | 2019-09-05 11:00 | NUR ---
RN NOTES BROUGHT PATIENT TO CT OF THE CHEST WITHOUT CONTRAST VIA ACLS PROTOCOL. PATIENT ABLE TO TOLERATE PROCEDURE WELL
[2019-09-05 13:56] LABS: BILIRUBIN,DIRECT 0.4 mg/dL (0.0-0.2); BILIRUBIN,TOTAL 0.6 mg/dL (0.2-1.0); TOTAL PROTEIN, SERUM 5.8 g/dL (6.4-8.2)
[2019-09-05 14:09] LABS: ALBUMIN 1.4 g/dL (3.4-5.0)
[2019-09-05] MEDS: FAT EMULSION 20% 500 ML in PREMIX 1 EA IV SCH (14:09)
[2019-09-05] MEDS ORDERED: LIDOCAINE 0.5%-EPI 1:200,000 50 ML VIAL TP ONE (18:30)
[2019-09-05] MEDS ORDERED: SILVER NITRATE APPLICATOR 1 EA BOX TP ONE ×2 (18:30)
[2019-09-05 18:43] LABS: HEMOGLOBIN 8.7 g/dL (13.5-17.5)
--- NOTE | 2019-09-05 19:30 | NUR ---
RN NOTES ENDORSED PATIENT FOR CONTINUITY OF CARE. NOT ON ANY FORM OF DISTRESS. ALL NURSING NEEDS ATTENDED AND ME. SAFETY MEASURES IN PLACE
--- NOTE | 2019-09-05 20:00 | NUR ---
ACCOUNTING GENERALIST - NOTES - RECEIVED PATIENT IN BED, AWAKE, EYES OPEN SPONTANEOUSLY, ABLE TO TRACK BUT UNABLE TO FOLLOW COMMANDS, NO VERBAL RESPONSE. NO SHORTNESS OF BREATH NOTED. TRACH TO VENT. TOLERATING CURRENT VENT SETTINGS. SINUS TACHY ON THE MONITOR AT THIS TIME. NO INDICATION OF PAIN AT THIS TIME. BILATERAL SOFT WRIST RESTRAINT, REMOVE AND REPLACED, TO CHECK FOR SKIN INTEGRITY. RIGHT UPPER PICC IN PLACE, DRESSING CLEAN AND INTACT. TPN INFUSING @ 60 CC/HR. LEFT FEMORAL HD CATHETER IN PLACE. LEFT LATERAL NEPHROSTOMY TUBE DRAINING SCANT AMOUNT YELLOW URINE, RAMÍREZ CATHETER IN PLACE DRAINING VIA GRAVITY. MID ABDOMINAL SURGICAL INCISION WITH DRAIN, DRESSING SOILED BUT IS IN PLACE- WILL CHANGE. TERENCE DRAIN NOTED WITH MINIMAL SEROUS FLUID. COLOSTOMY BAG INTACT AND IN PLACE. HOB KEPT ELEVATED. SAFETY MEASURES IN PLACE, BED IN LOWEST AND LOCKED POSITION, HOB ELEVATED. WILL CONTINUE TO CLOSELY MONITOR THE PATIENT CLOSELY
[2019-09-05] MEDS ORDERED: TPN BAG #21 IV PRN ×2 (23:00)
[2019-09-06] VITALS (26 sets, daily range): BP systolic 100–183; BP diastolic 57–94
[2019-09-06] MEDS: MORPHINE SULFATE INJ 4 MG/ML DISP.SYRIN IV PRN ×2 (00:32→15:13)
[2019-09-06] MEDS: LORAZEPAM INJ 2 MG/ML VIAL IV PRN ×2 (00:32→23:21)
[2019-09-06] MEDS: BLOOD SUGAR DIAGNOSTIC 1 EACH STRIP IN SCH ×5 (00:49→18:10)
[2019-09-06] MEDS: METOCLOPRAMIDE HCL 10 MG/2 ML VIAL IV SCH ×4 (01:26→18:10)
[2019-09-06] MEDS: VANCOMYCIN 500 MG in IV D5W 100 ML IV PRN (01:32)
[2019-09-06] MEDS ORDERED: LIDOCAINE HCL/MPF 1% 30 ML VIAL IJ ONE (07:19)
[2019-09-06] MEDS ORDERED: ANESTHESIA TRAY IN PYXIS 1 EA TRAY MC ONE (07:19)
[2019-09-06] MEDS ORDERED: HEPARIN SODIUM, PORCINE 1,000 UNIT/ML VIAL ONE (07:22)
--- NOTE | 2019-09-06 07:30 | NUR ---
RN NOTES MORNING METOCLOPRAMIDE NOT GIVEN DUE TO PATIENT AT THE OR FOR PERMACATH INSERTION
--- NOTE | 2019-09-06 07:30 | NUR ---
RN NOTES RECEIVED BACK PATIENT FROM PREVIOUS SHIFT. PATIENT CALMLY SLEEPS IN BED, OPENS EYES SPONTANEOUSLY ON TOUCH . BREATHING UNLABORED. TOLERATING VENT SETTINGS WELL. NO INDICATION OF PAIN NOTED AT THIS TIME. HOB ELEVATED. TPN AND LIPIDS INFUSING WELL AT DESIRED RATE. WOUND DRESSINGS IN PLACE AND INTACT. HOB ELEVATED. SAFETY MEASURES IN PLACE. BED IN LOW AND LOCKED POSITIONED. WILL CONTINUE TO MONITOR PATIENT ACCORDINGLY
--- NOTE | 2019-09-06 07:40 | NUR ---
RN NOTES PATIENT PICKED UP AND TRANSFERRED TO OR BY THE OR TEAM VIA ACLS PROTOCOL FOR SCHEDULED PERMACATH PLACEMENT.
--- NOTE | 2019-09-06 08:30 | NUR ---
RN NOT[facility] NO SIGNS OF BLEEDING NOTED. DRESSING IS IN PLACE AND INTACT. ORDERS FOR POTABLE CHEST XRAY IN PLACE AND RESUME ALL PREOP ORDERS. ORDERS NOTED AND CARRIED OUT.
[2019-09-06] MEDS: FAMOTIDINE/PF INJ 20 MG/2 ML VIAL IV SCH ×2 (09:12→20:34)
[2019-09-06] MEDS ORDERED: IV NS 0.9% 1,000 ML BAG IV PRN (09:30)
[2019-09-06 10:26] LABS: HEMATOCRIT 25 % (39-51); HEMOGLOBIN 8.7 g/dL (13.5-17.5); MEAN CORPUSCULAR VOLUME 87 fL (80-96); RED BLOOD CELL COUNT(AUTO) 2.93 MIL/uL (4.5-6.0); WHITE BLOOD COUNT (AUTO) 9.8 K/uL (4.3-11.0)
[2019-09-06 10:27] LABS: BASOPHILS % (AUTO) 0.3 % (0.0-2.0); EOSINOPHILS % (AUTO) 3.9 % (0.0-6.0); LYMPHOCYTES # (AUTO) 0.6 /CMM (0.8-4.8); LYMPHOCYTES % (AUTO) 5.9 % (20.0-44.0); MEAN CORPUSCULAR HGB CONC 34 g/dl (31.0-36.0); MONOCYTES # (AUTO) 1.2 /CMM (0.1-1.30); MONOCYTES % (AUTO) 11.8 % (2.0-12.0); NEUTROPHILS # (AUTO) 7.7 /CMM (1.8-8.9); NEUTROPHILS % (AUTO) 78.1 % (43.0-81.0); PLATELET COUNT (AUTO) 333 /CMM (150-450)
[2019-09-06 10:38] LABS: POTASSIUM 3.6 mmol/L (3.5-5.1)
[2019-09-06 10:41] LABS: CREATININE 5.7 mg/dL (0.6-1.3); MAGNESIUM 1.6 mg/dL (1.8-2.4); PHOSPHORUS 4.2 mg/dL (2.5-4.9)
--- NOTE | 2019-09-06 11:00 | NUR ---
RN NOTES DEBRIDEMENT OF THE ABDOMINAL WALL AND OSTOMY DONE AT BEDSIDE BY DR. SOLEDAD CARMEN AND JAYMECATERING TRUCK OPERATOR
--- NOTE | 2019-09-06 12:00 | NUR ---
RN NOTES MORNING BLOOD SUGAR CHECK NOT LOG DUE TO DOWN SYSTEM
[2019-09-06] MEDS: INSULIN REGULAR, HUMAN 100 UNIT/ML 3 ML VIAL SQ PRN (12:57)
[2019-09-06] MEDS ORDERED: TPN BAG #22 IV PRN ×5 (13:00)
[2019-09-06] MEDS ORDERED: Magnesium 1GM/D5W 100ML PREMIX 100 ML IV SCH ×2 (16:00→18:30)
[2019-09-06] MEDS ORDERED: Magnesium 1GM/D5W 100ML PREMIX PIGGYBACK IV ONE (18:30)
--- NOTE | 2019-09-06 19:30 | NUR ---
RN NOTES ENDORSED FOR CONTINUITY OF CARE. NOT ON ANY FORM OF DISTRESS. TOLERATING VENT SETTINGS WELL. ALL NURSING NEEDS ATTENDED. SAFETY MEASURES IN PLACE AT ALL TIMES.
--- NOTE | 2019-09-06 20:09 | NUR ---
RECEIVED PT CHRIS LINCOLN #8 ON VENT. PT TOLERATING SIMV NO DISTRESS. SX'D FOR SML AMT OF THICK WHITE SECRETIONS. VENT ALARMS SET AND AUDIBLE. TRACH SECURE CUFF LAN ADMINISTRATOR. CONTINUE [facility] VENT SUPPORT. Addendum: 09/06/19 at 2009 by ARSH HESTER RT Amended: Links added.
[2019-09-06] MEDS: AMIKACIN 500 MG in IV D5W 100 ML IV PRN (23:20)
[2019-09-07] VITALS (36 sets, daily range): BP systolic 119–169; BP diastolic 64–101
[2019-09-07] MEDS: BLOOD SUGAR DIAGNOSTIC 1 EACH STRIP IN SCH ×4 (00:02→17:04)
[2019-09-07] MEDS: INSULIN REGULAR, HUMAN 100 UNIT/ML 3 ML VIAL SQ PRN (00:04)
[2019-09-07] MEDS: METOCLOPRAMIDE HCL 10 MG/2 ML VIAL IV SCH ×4 (01:51→18:33)
[2019-09-07] MEDS: MORPHINE SULFATE INJ 4 MG/ML DISP.SYRIN IV PRN ×2 (03:13→23:50)
[2019-09-07] MEDS: diphenhydrAMINE HCL 50 MG/ML VIAL IV PRN (03:24)
[2019-09-07] MEDS: LORAZEPAM INJ 2 MG/ML VIAL IV PRN ×3 (04:06→23:04)
[2019-09-07 04:24] LABS: BASOPHILS % (AUTO) 0.3 % (0.0-2.0); EOSINOPHILS % (AUTO) 3.6 % (0.0-6.0); HEMATOCRIT 25 % (39-51); HEMOGLOBIN 8.3 g/dL (13.5-17.5); LYMPHOCYTES # (AUTO) 0.7 /CMM (0.8-4.8); LYMPHOCYTES % (AUTO) 6.6 % (20.0-44.0); MEAN CORPUSCULAR HGB CONC 34 g/dl (31.0-36.0); MEAN CORPUSCULAR VOLUME 87 fL (80-96); MONOCYTES # (AUTO) 1.2 /CMM (0.1-1.30); MONOCYTES % (AUTO) 11.8 % (2.0-12.0); NEUTROPHILS # (AUTO) 8.2 /CMM (1.8-8.9); NEUTROPHILS % (AUTO) 77.7 % (43.0-81.0); PLATELET COUNT (AUTO) 293 /CMM (150-450); RED BLOOD CELL COUNT(AUTO) 2.81 MIL/uL (4.5-6.0); WHITE BLOOD COUNT (AUTO) 10.5 K/uL (4.3-11.0)
[2019-09-07 04:40] LABS: CALCIUM, SERUM 8.2 mg/dL (8.5-10.1); CREATININE 6.4 mg/dL (0.6-1.3); MAGNESIUM 1.9 mg/dL (1.8-2.4); POTASSIUM 3.3 mmol/L (3.5-5.1)
--- NOTE | 2019-09-07 07:00 | NUR ---
vent changes below per dr. hardin: cpap 5 ps 12 fio2 40% rn aware on vent changes. Addendum: 09/07/19 at 0702 by VICKY GOLDSMITH RT Amended: Links added.
--- NOTE | 2019-09-07 07:15 | NUR ---
RN INITIAL NOTES RECEIVED PT AWAKE, ORIENTED X1, RESTLESS. TRACH IN PLACE. ON CPAP. NO RESPIRATORY DISTRESS NOTED. NO SIGNS OF PAIN NOTED. HOB ELEVATED. CHENCHO PICC IN PLACE. TPN INFUSING. RIGHT CHESTWALL PERMACATH AND LEFT FEMORAL HD CATH IN PLACE. WILL REMOVE FEMORAL HD CATH AND SEND FOR CULTURE. LEFT NEPHROSTOME, FC, COLOSTOMY, TERENCE AND ACCORDION DRAIN IN PLACE. WILL MONITOR FOR OUTPUT. PT REPOSITIONED. BLE ELEVATED. WILL CLOSELY MONITOR
[2019-09-07] MEDS ORDERED: TPN BAG #24 IV PRN ×6 (08:00)
[2019-09-07] MEDS ORDERED: TPN BAG #23 IV PRN ×4 (08:00)
[2019-09-07] MEDS: FAMOTIDINE/PF INJ 20 MG/2 ML VIAL IV SCH ×2 (08:07→21:17)
[2019-09-07 08:57] LABS: ABG BASE EXCESS -5.2 mmol/L; ABG OXYGEN SATURATION 98.2 % (92.0-98.5); ABG PCO2 30.6 mmHg (35.0-45.0); ABG PH 7.405 (7.350-7.450); COHb 0.3 % (0.5-1.5); MetHb 0.6 % (0.0-1.5); O2Hb 97.3 % (94.0-97.0); SITE, ABG Right Radial; VENT MODE, BG CPAP 5 / PS 12
--- NOTE | 2019-09-07 12:30 | NUR ---
RN NOTES 0900 SEEN AND EXAMINED BY DR HEATH. PT PLACED ON CPAP AT 0700. NO RESPIRATORY DISTRESS NOTED. NO SOB NOTED. HOB ELEVATED. AWARE OF ABG RESULT. WILL CONTINUE TO MONITOR 1230 SEEN AND EXAMINED BY CHERYL CALL. AWARE OF PT'S LAB VALUES, ABG AND CXR RESULT. PT ON CPAP. NO RESPIRATORY DISTRESS NOTED. NO SOB NOTED. KEPT HOB ELEVATED. TPN INFUSING. HD DONE, 2000ML OUT. TOLERATED WELL. LEFT FEMORAL HD CATH REMOVED BY HD NURSE. TIP SENT FOR CULTURE. LEFT NEPHROSTOMY, FC, COLOSTOMY, TERENCE DRAIN AND ACCORDION IN PLACE. WILL MONITOR
[2019-09-07] MEDS: FAT EMULSION 20% 500 ML in PREMIX 1 EA IV SCH (13:24)
[2019-09-07] MEDS: AMIKACIN 500 MG in IV D5W 100 ML IV PRN (13:24)
[2019-09-07] MEDS: VANCOMYCIN 500 MG in IV D5W 100 ML IV PRN (14:23)
--- NOTE | 2019-09-07 15:30 | NUR ---
RN NOTES CALLED CHERYL CALL REGARDING BROWNISH SECRETION COMING OUT FROM TRACH STOMA. PT HAS NGT, ORDERED TO CONNECT TO INTERMITTENT SUCTION. WILL CLOSELY MONITOR
--- NOTE | 2019-09-07 18:30 | NUR ---
RN CLOSING NOTES PT ALERT WITH PERIODS OF RESTLESSNESS. TOLERATING CPAP WELL. NO RESPIRATORY DISTRESS NOTED. KEPT AIRWAY PATENT. HOB ELEVATED. NO SIGNS OF PAIN NOTED. NGT CONNECTED TO SUCTION. TPN AND LIPIDS INFUSING. KEPT CLEAN AND DRY. REPOSITIONED Q2. BLE ELEVATED. WILL ENDORSE FOR CONTINUITY OF CARE.
--- NOTE | 2019-09-07 20:00 | NUR ---
Received patient awake alert follows simple commands.Moves all extremities.Bilateral soft wrist restraint in place for safety.SR/ST [id number].Hemodynamically stable.Orally intubated to vent on CPAP mode.Vent settings well tolerated.Left Nares NGT to LIWS draining reddish brown liquid.Abdomen soft BS active with colostomy intact draining small liquid stool.FC to gravity,Left Nephrostomy Tube intact with yellow urine.TERENCE to negative suction with small serosanguineous output.Right abdominal drain flush per order.Patient with IV'S TPN and LIPIDS infusing well to CHENCHO PICC LINE.Site intact.Abdominal incision dressing C/D/I.No distress noted.Turned and repositioned to comfort.Safety precaution maintained.
[2019-09-08] VITALS (64 sets, daily range): BP systolic 100–177; BP diastolic 61–98
--- NOTE | 2019-09-08 | NUR ---
Patient restless,tachypneic RR 30's-40's,tachycardic 120's-130's and BP elevated.Ativan administered as PRN.Called RT and changed vent settings to SIMV as previously ordered. Grimacing morphine given as PRN pain.Turned and repositioned.Bathed and linens changed. Continue monitoring.
[2019-09-08] MEDS: METOCLOPRAMIDE HCL 10 MG/2 ML VIAL IV SCH ×4 (01:40→20:11)
[2019-09-08] MEDS: BLOOD SUGAR DIAGNOSTIC 1 EACH STRIP IN SCH ×4 (01:44→17:33)
--- NOTE | 2019-09-08 01:56 | NUR ---
RT PT WAS PLACED BACK ON PREVIOUS SIMV SETTING NOTED. PT WAS AGITATED/TACHYPNEA WITH HIGH BP. RESP RATES 30-40. RN MADE AWARE. PT TOLERATING SETTING WELL, WILL CONTINUE TO MONITOR. Addendum: 09/08/19 at 0205 by KELSY TORRE RT Amended: Links added.
[2019-09-08] MEDS ORDERED: IV NS 0.9% 500 ML IV ONE (03:00)
--- NOTE | 2019-09-08 06:30 | NUR ---
Patient resting in no acute distress.VSS.SR/ST.Still on SIVM mode.FSBS wnl.Turned and repositioned. All iv's infusing well.Will endorse to day shift for jimbo.
[2019-09-08 06:33] LABS: CALCIUM, SERUM 7.9 mg/dL (8.5-10.1); CREATININE 5.2 mg/dL (0.6-1.3); MAGNESIUM 1.9 mg/dL (1.8-2.4); POTASSIUM 3.1 mmol/L (3.5-5.1)
[2019-09-08] MEDS: LORAZEPAM INJ 2 MG/ML VIAL IV PRN ×2 (07:35→17:20)
[2019-09-08] MEDS: FAMOTIDINE/PF INJ 20 MG/2 ML VIAL IV SCH ×2 (08:09→20:10)
[2019-09-08] MEDS: hydrALAZINE HCL IV 20 MG VIAL IV PRN (08:09)
--- NOTE | 2019-09-08 08:21 | NUR ---
received pt from overnight cashier, lethargic, does not follow commands, SR, on the vent SIMV, did not tolerate CPAP last night, lungs partially congested, BL hand edema, NG to ILS, L nephrostomy, TERENCE, accordion, colostomy are intact and draining, f/c low output, getting TPN and lipids, CVP monitoring, restraints on, v/s stable, no pain, pt turned and repositioned, HD nurse at the bedside for dialysis.
[2019-09-08] MEDS: MORPHINE SULFATE INJ 4 MG/ML DISP.SYRIN IV PRN ×2 (11:05→18:22)
[2019-09-08] MEDS ORDERED: Potassium Chloride 10 MEQ in IV D5W 50 ML IV SCH (12:00)
[2019-09-08] MEDS ORDERED: TPN BAG #25 IV PRN ×6 (12:00)
[2019-09-08] MEDS: POTASSIUM CL. PREMIX PERIPHER. 50 ML IV SCH ×2 (12:23→14:06)
--- NOTE | 2019-09-08 16:33 | NUR ---
pt is resting in the bed, lethargic, does not follow commands, SR, ST, v/s stable, no pain, pt cleaned, changed and repositioned q2hrs.
--- NOTE | 2019-09-08 19:25 | NUR ---
ICU/RN notes, Patient received in bed, A/O x1, awake, open eyes, non-verbal, lethargic. In no acute distress, breathing even and unlabored on prescribed vent settings, Trach intact, patent. No S/S of pain. CHENCHO picc line, patent, running with TPN as ordered, CVP in place, TERENCE drain and accordian drain in place, draining well. Acuña cath and left nephrostomy in place, patent, draining well. with yellow color urine, no TELE monitoring with Sinus rhythm and Sinus Tachy. Safety maintained, bed at the lowest locked position, Call light within reach. Will continue to monitor as per plan of care.
[2019-09-09] VITALS (62 sets, daily range): BP systolic 103–172; BP diastolic 63–109
[2019-09-09] MEDS: BLOOD SUGAR DIAGNOSTIC 1 EACH STRIP IN SCH ×4 (00:36→18:02)
[2019-09-09] MEDS: METOCLOPRAMIDE HCL 10 MG/2 ML VIAL IV SCH ×4 (01:44→19:52)
[2019-09-09 04:30] LABS: BASOPHILS # (AUTO) 0.1 /CMM (0.0-0.2); BASOPHILS % (AUTO) 0.6 % (0.0-2.0); EOSINOPHILS % (AUTO) 3.1 % (0.0-6.0); HEMATOCRIT 24 % (39-51); LYMPHOCYTES # (AUTO) 0.5 /CMM (0.8-4.8); LYMPHOCYTES % (AUTO) 4.8 % (20.0-44.0); MEAN CORPUSCULAR HGB CONC 34 g/dl (31.0-36.0); MEAN CORPUSCULAR VOLUME 87 fL (80-96); MONOCYTES # (AUTO) 1.3 /CMM (0.1-1.30); MONOCYTES % (AUTO) 11.8 % (2.0-12.0); NEUTROPHILS # (AUTO) 8.7 /CMM (1.8-8.9); NEUTROPHILS % (AUTO) 79.7 % (43.0-81.0); PLATELET COUNT (AUTO) 274 /CMM (150-450); RED BLOOD CELL COUNT(AUTO) 2.74 MIL/uL (4.5-6.0); WHITE BLOOD COUNT (AUTO) 10.9 K/uL (4.3-11.0)
[2019-09-09 04:52] LABS: CALCIUM, SERUM 8.1 mg/dL (8.5-10.1); CREATININE 5.2 mg/dL (0.6-1.3); MAGNESIUM 1.9 mg/dL (1.8-2.4); PHOSPHORUS 5.1 mg/dL (2.5-4.9); POTASSIUM 3.2 mmol/L (3.5-5.1)
--- NOTE | 2019-09-09 07:02 | NUR ---
ICU/RN notes, Patient remained in bed, Alert and oriented to his base line, in no acute distress, breathing even and unlabored, no SOB noted. No S/S of pain at this time, TERENCE drain, accordian Drain, Nephrostomy tube and Acuña cath in place patent, draining well. On tele monitoring with SR/ST. Due Meds given as ordered, treatments rendered, Tolerated well. Clean and dry. Repositioned per protocol. JORDANA Picc line in place, patent running with TPN as ordered, CVP in place, Safety maintained, bed at the lowest locked position. Will endorse to AM shift nurse for THOMAS.
--- NOTE | 2019-09-09 07:20 | NUR ---
WOUND CARE FOLLOW UP: PT SEEN FOR RE-EVALUATION OF LEFT EAR INTACT DEEP TISSUE INJURY. WOUND IS SMALLER IN SIZE, NO DRAINAGE NOTED, NO ERYTHEMA. DISCUSSED CONTINUED OFFLOADING AND PROTECTION OF AREA WITH NURSING STAFF. IN AGREEMENT WITH PLAN OF CARE. Addendum: 09/09/19 at 0721 by TAB JAFFE WNDNU Amended: Links added.
[2019-09-09] MEDS: LORAZEPAM INJ 2 MG/ML VIAL IV PRN ×3 (07:32→19:52)
--- NOTE | 2019-09-09 08:28 | NUR ---
received pt from overnight houseperson, lethargic, does not follow commands, SR, on the vent CPAP tolerating well, lungs partially congested, BL hand edema, NG to ILS, TERENCE, accordion, L nephrostomy and colostomy are all intact and draining, f/c OK urine, TPN, restraints on, v/s stable, no pain, pt turned and repositioned.
[2019-09-09] MEDS ORDERED: DIATR MEGLU/DIATRIZOATE SODIUM 30 ML BOTTLE (GASTROGRAPHIN) ONE (08:36)
[2019-09-09] MEDS: FAMOTIDINE/PF INJ 20 MG/2 ML VIAL IV SCH ×2 (08:58→21:06)
[2019-09-09] MEDS: MORPHINE SULFATE INJ 4 MG/ML DISP.SYRIN IV PRN (09:05)
[2019-09-09] MEDS ORDERED: IV NS 0.9% 250 ML IV ONE (13:27)
[2019-09-09] MEDS ORDERED: IOHEXOL-300 100 ML VIAL IV ONE (13:27)
[2019-09-09] MEDS ORDERED: CT SWABBABLE VALVE TRANS SET 1 EA INFUS.SET MC ONE (13:27)
[2019-09-09] MEDS: FAT EMULSION 20% 500 ML in PREMIX 1 EA IV SCH (14:00)
[2019-09-09] MEDS ORDERED: Potassium Chloride 10 MEQ in IV D5W 50 ML IV SCH (15:00)
[2019-09-09] MEDS ORDERED: POTASSIUM CL. PREMIX PERIPHER. 50 ML IV SCH (15:00)
--- NOTE | 2019-09-09 16:50 | NUR ---
pt is resting in the bed, lethargic, does not follow commands, SR, ST, receiving TPN and Lipids, having HD right now, CT abd/pelvis done, v/s stable, no pain, pt cleaned, changed and repositioned.
[2019-09-09] MEDS ORDERED: TPN BAG #26 IV PRN ×4 (18:00)
--- NOTE | 2019-09-09 22:15 | NUR ---
EDUCATIONAL PSYCHOLOGY PROFESSOR GASTRIC RESIDUAL >100; CONTINUE NG TUBE TO LIS AT THIS TIME.
[2019-09-09] MEDS: diphenhydrAMINE HCL 50 MG/ML VIAL IV PRN (22:53)
[2019-09-10] VITALS (26 sets, daily range): BP systolic 132–170; BP diastolic 68–109
[2019-09-10] MEDS: BLOOD SUGAR DIAGNOSTIC 1 EACH STRIP IN SCH ×5 (00:18→23:33)
[2019-09-10] MEDS: LORAZEPAM INJ 2 MG/ML VIAL IV PRN ×3 (00:19→15:07)
[2019-09-10] MEDS: METOCLOPRAMIDE HCL 10 MG/2 ML VIAL IV SCH ×4 (01:41→19:49)
[2019-09-10 05:02] LABS: CALCIUM, SERUM 8.1 mg/dL (8.5-10.1); CREATININE 3.8 mg/dL (0.6-1.3); POTASSIUM 3.4 mmol/L (3.5-5.1)
[2019-09-10 05:03] LABS: MAGNESIUM 1.8 mg/dL (1.8-2.4); PHOSPHORUS 3.4 mg/dL (2.5-4.9)
[2019-09-10] MEDS: INSULIN REGULAR, HUMAN 100 UNIT/ML 3 ML VIAL SQ PRN (06:53)
--- NOTE | 2019-09-10 07:25 | NUR ---
ICU/RN OPENING NOTES RECEIVED PATIENT IN BED AWAKE AND ABLE TO RESPOND TO TACTILE STIMULI. NO PAIN OR ACUTE DISTRESS AT THIS TIME. RESPIRATION EVEN AND UNLABORED. SKIN IS DRY WARM TO TOUCH. PATIENT NOTED WITH R CHEST WALL HD CATH AND CHENCHO PICC LINE. CHENCHO PICC INTACT AND PATENT. FLUSHING WELL. NO S/S OF INFECTION OR INFILTRATION. NGT IN PLACE WELL. PATIENT NOTED WITH LEFT COLOSTOMY, L NEPHROSTOMY DRAINING WELL. RAMÍREZ CATH DRAINING CLEAR YELLOW URINE. TERENCE DRAIN INTACT AND DRAINING WELL. ALL NEEDS ANTICIPATED CALL LIGHT WITHIN REACHED. SAFETY MAINTAINED. BED LOCKED AND IN LOWEST POSITION. WILL CONTINUE TO MONITOR CLOSELY.
[2019-09-10] MEDS ORDERED: TPN BAG #27 IV PRN ×6 (08:00)
[2019-09-10] MEDS: FAMOTIDINE/PF INJ 20 MG/2 ML VIAL IV SCH ×2 (08:07→21:26)
[2019-09-10] MEDS: ACETAMINOPHEN 650 MG/SUPP.RECT RC PRN (08:17)
[2019-09-10 11:57] LABS: BASOPHILS # (AUTO) 0.1 /CMM (0.0-0.2); BASOPHILS % (AUTO) 0.9 % (0.0-2.0); EOSINOPHILS % (AUTO) 1.7 % (0.0-6.0); HEMATOCRIT 23 % (39-51); HEMOGLOBIN 7.6 g/dL (13.5-17.5); LYMPHOCYTES # (AUTO) 0.5 /CMM (0.8-4.8); LYMPHOCYTES % (AUTO) 4.8 % (20.0-44.0); MEAN CORPUSCULAR HGB CONC 33 g/dl (31.0-36.0); MEAN CORPUSCULAR VOLUME 87 fL (80-96); MONOCYTES # (AUTO) 1.4 /CMM (0.1-1.30); MONOCYTES % (AUTO) 12.6 % (2.0-12.0); PLATELET COUNT (AUTO) 307 /CMM (150-450); RED BLOOD CELL COUNT(AUTO) 2.64 MIL/uL (4.5-6.0); WHITE BLOOD COUNT (AUTO) 11.2 K/uL (4.3-11.0)
[2019-09-10] MEDS ORDERED: OLANZAPINE 5 MG/TAB.RAPDIS SL ONE (14:30)
[2019-09-10 14:54] LABS: BAND % (MANUAL) 3 % (0.0-5.0); EOSINOPHILS % (MANUAL) 2 % (0-4); LYMPHOCYTES % (MANUAL) 4 % (16-48); MONOCYTES % (MANUAL) 11 % (0-11.0); NEUTROPHILS % (MANUAL) 80 (42-76)
[2019-09-10] MEDS ORDERED: POTASSIUM CL. PREMIX PERIPHER. 50 ML IV SCH (15:30)
[2019-09-10] MEDS ORDERED: TPN BAG #28 IV PRN ×4 (15:30)
--- NOTE | 2019-09-10 19:14 | NUR ---
ICU/RN CLOSING NOTES PATIENT CONTINUES TO REMAIN IN STABLE CONDITION THROUGHOUT THE SHIFT. PROVIDED COMFORT AND SAFETY. PATIENT ABLE TO TOLERATE MEDICATIONS WELL. ALL NEEDS ANTICIPATED. CALL LIGHT WITHIN REACHED. BED LOCKED AND IN LOWEST POSITION. WILL CONTINUE TO MONITOR CLOSELY. ENDORSED TO PM NURSE FOR THOMAS.
[2019-09-10 20:21] LABS: APPEARANCE,URINE CLEAR (CLEAR); BILIRUBIN,URINE NEGATIVE (NEGATIVE); BLOOD, URINE LARGE Ery/uL (NEGATIVE); COLOR,URINE YELLOW (YELLOW); KETONES,URINE NEGATIVE (NEGATIVE); LEUKOCYTE ESTERASE ,URINE SMALL (NEGATIVE); NITRITE, URINE NEGATIVE (NEGATIVE); PH,URINE 5.5 (5.0-8.0); PROTEIN,URINE 30 mg/dl (NEGATIVE); UGLUCOSE NEGATIVE (NEGATIVE); UROBILINOGEN,URINE 0.2 EU/dL (0.2)
[2019-09-10 20:29] LABS: BACTERIA,URINE 1+ /HPF (None Seen); FINE GRANULAR CASTS,URINE 0-2 /LPF (None Seen); SQUAMOUS EPITHELIAL CELL,UR Few /HPF (None Seen); WBC,URINE 21-50 /HPF (0-3)
[2019-09-10] MEDS: OLANZAPINE 5 MG/TAB.RAPDIS SL SCH (21:26)
[2019-09-11] VITALS (24 sets, daily range): BP systolic 143–177; BP diastolic 70–126
[2019-09-11] MEDS: METOCLOPRAMIDE HCL 10 MG/2 ML VIAL IV SCH ×4 (01:37→19:05)
[2019-09-11 04:48] LABS: BASOPHILS # (AUTO) 0.1 /CMM (0.0-0.2); BASOPHILS % (AUTO) 0.5 % (0.0-2.0); EOSINOPHILS % (AUTO) 1.4 % (0.0-6.0); HEMATOCRIT 22 % (39-51); HEMOGLOBIN 7.5 g/dL (13.5-17.5); LYMPHOCYTES # (AUTO) 0.6 /CMM (0.8-4.8); LYMPHOCYTES % (AUTO) 5.6 % (20.0-44.0); MEAN CORPUSCULAR HGB CONC 33 g/dl (31.0-36.0); MEAN CORPUSCULAR VOLUME 86 fL (80-96); MONOCYTES # (AUTO) 1.3 /CMM (0.1-1.30); MONOCYTES % (AUTO) 12.4 % (2.0-12.0); NEUTROPHILS # (AUTO) 8.5 /CMM (1.8-8.9); NEUTROPHILS % (AUTO) 80.1 % (43.0-81.0); PLATELET COUNT (AUTO) 320 /CMM (150-450); RED BLOOD CELL COUNT(AUTO) 2.62 MIL/uL (4.5-6.0); WHITE BLOOD COUNT (AUTO) 10.6 K/uL (4.3-11.0)
[2019-09-11 05:05] LABS: CALCIUM, SERUM 8.5 mg/dL (8.5-10.1); MAGNESIUM 1.7 mg/dL (1.8-2.4); PHOSPHORUS 3.9 mg/dL (2.5-4.9); POTASSIUM 3.3 mmol/L (3.5-5.1)
[2019-09-11] MEDS: BLOOD SUGAR DIAGNOSTIC 1 EACH STRIP IN SCH ×3 (05:14→17:50)
--- NOTE | 2019-09-11 06:41 | NUR ---
FINANCIAL DEVELOPER NEPHROSTOMY OUTPUT 450 ML; DARK YELLOW COLORED. NO DRAINAGE FROM TERENCE DRAIN. ACCORDION DRAIN 40 ML OUTPUT.
--- NOTE | 2019-09-11 07:10 | NUR ---
RUBY ON RAILS CONSULTANT NOTES RECEIVED BEDSIDE REPORT. PT A/O X1 RESPONDS SLOWLY TO NAME.VENT/TRACH TOLERATING CPAP SETTINGS ORDERED NO S/S OF DISTRESS NOTED OR PAIN. RESTLESS IN BED WITH BILATERAL WRIST RESTRAINTS CHECKED FOR CIRCULATION. NG TUBE TO LOW INTERMITTENT SUCTION WITH MINIMAL DRAINING. CHENCHO PICC RUNNING TPN @ 60ML/HR. LEFT SIDE COLOSTOMY CLEAN AND DRY LEFT NEPHROSTOMY DRAINING CLOUDY YELLOW URINE. RIGHT SIDE TERENCE DRAIN/RIGHT SIDE PIG DRAIN CLEAN WITH MINIMAL DRAINAGE . CVP TO JORDANA.REPOSITIONED FOR COMFORT ON [facility] BED. BILATERAL PROFO BOOTS FOR FOOT DROP. SAFETY AND ASPIRATION PRECAUTIONS IN PLACE BED IN LOW LOCKED POSITION WILL CONT TO MONITOR ACCORDINGLY
--- NOTE | 2019-09-11 08:30 | NUR ---
COLOSTOMY BAG CHANGED D/T LEAKING AT [facility] SITE. PT TOLERATED REPOSITIONED FOR COMFORT
[2019-09-11] MEDS: FAMOTIDINE/PF INJ 20 MG/2 ML VIAL IV SCH ×2 (08:37→21:15)
[2019-09-11] MEDS: OLANZAPINE 5 MG/TAB.RAPDIS SL SCH ×2 (10:11→21:15)
--- NOTE | 2019-09-11 11:17 | NUR ---
PT RECEIVING HD NOW
[2019-09-11] MEDS: INSULIN REGULAR, HUMAN 100 UNIT/ML 3 ML VIAL SQ PRN ×2 (11:57→17:51)
--- NOTE | 2019-09-11 12:37 | NUR ---
PT PULLED OUT NGT TUBE WILL REPLACE WHEN HD IS DONE
[2019-09-11] MEDS: IV NS 0.9% 250 ML IV PRN (13:07)
[2019-09-11] MEDS: FAT EMULSION 20% 500 ML in PREMIX 1 EA IV SCH (14:09)
[2019-09-11] MEDS ORDERED: TPN BAG #29 IV PRN ×6 (14:30)
[2019-09-11] MEDS ORDERED: POTASSIUM CL. PREMIX PERIPHER. 50 ML IV SCH (15:00)
--- NOTE | 2019-09-11 15:40 | NUR ---
BED BATH GIVEN ORAL CARE AND WOUND CARE DONE
--- NOTE | 2019-09-11 15:53 | NUR ---
LLQ CULTURE SENT FROM ACCORDION DRAIN
--- NOTE | 2019-09-11 15:54 | NUR ---
ATTEMPTED TO PLACE NGT PT BLEEDING FROM NARES UNABLE TO PLACE
--- NOTE | 2019-09-11 16:00 | NUR ---
NOTIFIED [facility] CALL THAT UNABLE TO PLACE NGT.WILL ATTEMPT TO PLACE IN RIGHT NARES
--- NOTE | 2019-09-11 17:11 | NUR ---
NGT PLACED IN LEFT NARES 14 FR PLACEMENT CHECKED WILL CONFIRM WITH CXR
--- NOTE | 2019-09-11 18:14 | NUR ---
NGT PLACEMENT CONFIRMED CONNECTED TO LOW INTERMITTENT SUCTION DRAINING CHEO COLORED DRAINAGE
--- NOTE | 2019-09-11 18:35 | NUR ---
PHOTOGRAPHIC INTELLIGENCE OFFICER NOTES PT REMAINED AFEBRILE THROUGHOUT SHIFT REPOSITIONED FREQUENTLY FOR COMFORT.NO SS OF DISTRESS TOLERATING VENT SETTINGS ORDERED A/O X1 FOLLOWS SIMPLE COMMANDS AND ACKNOWLEDGES WHEN SPOKEN TO. SINUS TACHY ON MONITOR. LEFT NEPHROSTOMY BAG DRAINING ANNY /YELLOW URINE. PT PASSING GAS VIA COLOSTOMY AND LIQUID BROWN STOOL. RIGHT SIDE TERENCE DRAIN MINIMAL DRAINAGE NOTED RIGHT ACCORDION DRAIN FLUSHED CHENCHO PICC TPN @ 60ML/ AND LIPIDS @ 20 ML/HR. SAFETY AND ASPIRATION PRECAUTIONS IN PLACE BILATERAL WRIST RESTRAINTS CHECKED FOR CIRCULATION BED IN LOW LOCKED POSITION
--- NOTE | 2019-09-11 19:03 | NUR ---
REPORT ENDORSED TO NOC
--- NOTE | 2019-09-11 19:30 | NUR ---
GRAIN MILLER HELPER ATTACHED MICRON FILTER TO LIPID TUBING THAT WAS HUNG EARLIER. ALSO FOUND PT NG TUBE COILED IN MOUTH; ADJUSTED AND VERIFIED BY TWO RNS. CONTINUE TO MONITOR.
[2019-09-12] VITALS (24 sets, daily range): BP systolic 121–170; BP diastolic 76–103
[2019-09-12] MEDS: BLOOD SUGAR DIAGNOSTIC 1 EACH STRIP IN SCH ×4 (00:32→17:29)
[2019-09-12] MEDS: METOCLOPRAMIDE HCL 10 MG/2 ML VIAL IV SCH ×4 (00:32→18:32)
--- NOTE | 2019-09-12 03:51 | NUR ---
WEBSITE/BLOG EDITOR PT AWAKE; ABLE TO FOLLOW SIMPLE COMMANDS. ABLE TO MOUTH WORDS AND MAKE SOME NEEDS KNOWN. PT PULLED OUT NG TUBE. THREE STAFF MEMBERS NEEDED TO REINSERT NG TUBE PT VERY RESISTANT TO THIS. EXPLAINED TO PT THE NEED FOR NG TUBE. PT ALSO INFORMED ANYTHING HE PULLS OUT WILL BE REINSERTED. PT SLEPT FOR A FEW MINUTES AT A TIME. PT AGREES HE WILL NOT PULL OUT ANYTHING ELSE. EXPLAINED TO PT ONCE HE IS COMPLIANT RESTRAINTS WILL BE REMOVED. CONTINUE TO MONITOR.
[2019-09-12 04:48] LABS: BASOPHILS % (AUTO) 0.3 % (0.0-2.0); EOSINOPHILS % (AUTO) 0.8 % (0.0-6.0); HEMATOCRIT 22 % (39-51); HEMOGLOBIN 7.6 g/dL (13.5-17.5); LYMPHOCYTES # (AUTO) 0.6 /CMM (0.8-4.8); LYMPHOCYTES % (AUTO) 5.8 % (20.0-44.0); MEAN CORPUSCULAR HGB CONC 34 g/dl (31.0-36.0); MEAN CORPUSCULAR VOLUME 86 fL (80-96); MONOCYTES # (AUTO) 1.4 /CMM (0.1-1.30); MONOCYTES % (AUTO) 12.7 % (2.0-12.0); NEUTROPHILS # (AUTO) 8.5 /CMM (1.8-8.9); NEUTROPHILS % (AUTO) 80.4 % (43.0-81.0); PLATELET COUNT (AUTO) 356 /CMM (150-450); RED BLOOD CELL COUNT(AUTO) 2.59 MIL/uL (4.5-6.0); WHITE BLOOD COUNT (AUTO) 10.6 K/uL (4.3-11.0)
[2019-09-12 05:06] LABS: MAGNESIUM 1.6 mg/dL (1.8-2.4); PHOSPHORUS 3.4 mg/dL (2.5-4.9)
[2019-09-12] MEDS: INSULIN REGULAR, HUMAN 100 UNIT/ML 3 ML VIAL SQ PRN ×3 (06:20→17:31)
--- NOTE | 2019-09-12 06:44 | NUR ---
LINE PILOT BOWEL MOVEMENT; PT NOTED TO HAVE ONE SMALL HARD FORMED STOOL PER RECTUM; ABOUT THE SIZE OF A GRAPE.
--- NOTE | 2019-09-12 07:15 | NUR ---
CHROME TANNING DRUM OPERATOR INITIAL NOTES Rec'd pt on bed, A/O x 1. On MV via trach, CPAP mode sating at 100%. On telemonitor, Has NGT on L nare, connected to LIS w/ brownish output. Has FC draining to BSB w/ yellowish UOP. Has TERENCE drain#1 serous, minimal output. Has accordion pigtail on R side abdomen, purulent, level 75. Has L nephrostomy tube in place w/ yellowish output. Has CHENCHO PICC line w/ TPN x 60 cc/hr & Lipid x 20 cc/hr. Has R IJ permacath in place. Has B soft wrist restraints for pt safety, pt has episode of pulling lines/tubes. Has sx incision on abdomen w/ [place]. Safety precaution in place w/ bed in lowest & locked pos. Call light placed w/in reach. Will cont to monitor & attend pt needs.
--- NOTE | 2019-09-12 07:53 | NUR ---
WOUND CARE CONSULT: PT SEEN FOR LEFT EAR FRAGILE HEALED AREA, RT DORSAL FOOT DRY SCAB AND SACRAL/INNER BUTTOCK INCONTINENCE ASSOCIATED SKIN IRRITATION. DISCUSSED WOUND CARE AND SKIN PROTECTION WITH NURSING STAFF. PT FOLLOWED FOR ABDOMINAL WOUND BY SURGICAL TEAM. DEFER TO SURGICAL TEAM FOR SURGICAL ISSUES. WILL SEE PRN. PEREZ IN AGREEMENT WITH PLAN OF CARE. Addendum: 09/12/19 at 0755 by TAB JAFFE WNDNU Amended: Links added.
[2019-09-12] MEDS: FAMOTIDINE/PF INJ 20 MG/2 ML VIAL IV SCH ×2 (08:13→21:38)
[2019-09-12] MEDS: OLANZAPINE 5 MG/TAB.RAPDIS SL SCH ×2 (08:13→21:30)
[2019-09-12] MEDS: Z GUARD REMEDY 2 OZ OINT TP PRN (08:14)
--- NOTE | 2019-09-12 08:20 | NUR ---
Pt seen & examined by Dr. Ott.
--- NOTE | 2019-09-12 08:41 | NUR ---
RE: High readings of BP, Per Dr. Ott to start Nitropaste 2inches BID topical.
[2019-09-12] MEDS: POTASSIUM CL. PREMIX PERIPHER. 50 ML IV SCH ×3 (08:59→11:13)
[2019-09-12] MEDS ORDERED: Magnesium 1GM/D5W 100ML PREMIX 100 ML IV SCH (09:00)
--- NOTE | 2019-09-12 09:30 | NUR ---
Pt seen & examined by Dr. Edward, updated about pt status.
[2019-09-12] MEDS: NITROGLYCERIN PACKET 1 GM PACKET TOP SCH ×2 (11:06→17:29)
--- NOTE | 2019-09-12 11:29 | NUR ---
Pt seen & examined by Bonita NAVARRO w/ orders to clamp ngt for 1 hr, flush NG & blue port w/ 30 cc of air then check residual. if residual <100 cc start TF (order dietary consult for re-eval re: TF), at 10 cc for an hr & check residual q6hrs. Uptitrate by 10 cc if tolerating. If residual >100, reconnect to LIS.
[2019-09-12] MEDS ORDERED: TPN BAG #30 IV PRN ×4 (12:00)
[2019-09-12] MEDS ORDERED: VITAL AF 1.2 1,000 ML BOTTLE GT PRN (12:30)
[2019-09-12 14:18] LABS: IRON, SERUM 14 ug/dl (50-175); TOTAL IRON BINDING CAPACITY 113 ug/dl (250-450)
[2019-09-12] MEDS ORDERED: EPOETIN ALFA (20,000 UNIT) 20,000 UNIT/ML VIAL SQ ONE (15:00)
--- NOTE | 2019-09-12 18:00 | NUR ---
DRAINS: TERENCE - 10cc serosanguineous R pigtail (accordion) - no output, level 75 NGT via LIS this AM - 350cc, brownish Nephrostomy tube - 750cc, yellowish FC - 400cc, yellowish
--- NOTE | 2019-09-12 18:51 | NUR ---
DIRECTOR CORPORATE COMPLIANCE CLOSING NOTES Pt resting on bed, not in any distress, A/O x 1, mouth words but still confused. Tolerating C/A FiO2 40%. NGT kept patent & intact, started on TF Vital AF at 10cc/hr, residual checked 10cc. IV line access kept patent & intact w/ no s/sx of infection/infiltration - TPN (bag #30) x 60cc/hr. Drains in place, monitored output & recorded. L colostomy bag in place. Wound care done on Sx site on abdomen as ordered. Safety precaution kept in place w/ bed in lowest & locked pos. Will endorse to PM RN for THOMAS.
--- NOTE | 2019-09-12 19:40 | NUR ---
ICU/FORENSIC COMPUTER EXAMINER RESIDUAL OF N/G TUBE WAS 5ML. WILL CONTINUE TO CHECK RESIDUAL ORDERED MD.
--- NOTE | 2019-09-12 19:45 | NUR ---
ICU/SUPERINTENDENT COMMUNICATIONS RECEIVED REPORT FROM DAY NURSE. SEE NURSING FLOWSHEET FOR ASSESSMENT. PT HAS A FEW SKIN ISSUES WHICH ARE ADDRESSED ALONG WITH THE INTERVENTIONS TO EACH OF THIS. PT IS AWAKE AND ALERT WITH PERIODS OF RESTLESS BEHAVIOR. PT IS TOLERATING THE T-PIECE WELL WITH SATURATION AT 100%. PT HAS LEFT NARE N/G TUBE WITH FEEDING AT 10ML. PT HAS MANY DRAINS WHICH ARE CLOSELY MONITORING. PT WAS TURNED AND REPOSITIONED FOR COMFORT AND CARE.
--- NOTE | 2019-09-12 20:10 | NUR ---
ICU/MANAGER FOOD BEVERAGE RT AT BEDSIDE DECREASED COOL AEROSOL T-PIECE TO 28% FROM 40%, AT 5 LITERS. WILL CONTINUE TO MONITOR THIS PT.
--- NOTE | 2019-09-12 22:34 | NUR ---
ICU/COMMUNITY HEALTH NURSE PT WAS GIVEN PM CARE, ALONG WITH ORAL CARE AT THIS TIME. PT TOLERATED THIS WELL, PT REMAINS IN T-PIECE COOL AEROSOL AT 5 LITERS & 28%, SATURATION IS 100% ON THIS CURRENT SETTINGS. PT WAS THEN TURNED AND REPOSITIONED FOR COMFORT AND CARE. WILL CONTINUE TO MONITOR THIS PT.
[2019-09-13] VITALS (27 sets, daily range): BP systolic 115–164; BP diastolic 67–97
--- NOTE | 2019-09-13 | NUR ---
ICU/SURGICAL SERVICES DIRECTOR RESIDUAL CHECK FROM N/G FEEDING IS 15ML. WILL CONTINUE TO MONITOR THESE RESIDUALS PER MD'S ORDERS.
[2019-09-13] MEDS: BLOOD SUGAR DIAGNOSTIC 1 EACH STRIP IN SCH ×5 (00:13→23:06)
--- NOTE | 2019-09-13 00:30 | NUR ---
ICU/INSOLVENCY CONSULTANT PT'S MIDNIGHT BLOOD SUGAR IS 123, THERE IS NO COVERAGE FOR THIS PER MD'S ORDERS. WILL CONTINUE TO CLOSELY MONITOR PT'S SUGARS.
[2019-09-13] MEDS: METOCLOPRAMIDE HCL 10 MG/2 ML VIAL IV SCH ×4 (01:39→19:49)
[2019-09-13] MEDS: LORAZEPAM INJ 2 MG/ML VIAL IV PRN ×3 (01:39→23:06)
--- NOTE | 2019-09-13 02:20 | NUR ---
ICU/VIDEO MANAGER PT WAS GIVEN AM CARE, ALONG WITH ORAL CARE AT THIS TIME. PT TOLERATED THIS WELL, PT REMAINS IN T-PIECE COOL AEROSOL AT 5 LITERS & 28%, SATURATION IS 100% ON THIS CURRENT SETTINGS. PT WAS THEN TURNED AND REPOSITIONED FOR COMFORT AND CARE. WILL CONTINUE TO MONITOR THIS PT. NO ACUTE DISTRESS SEEN AT THIS TIME.
[2019-09-13 04:19] LABS: BASOPHILS % (AUTO) 0.4 % (0.0-2.0); EOSINOPHILS % (AUTO) 0.6 % (0.0-6.0); HEMATOCRIT 29 % (39-51); HEMOGLOBIN 9.6 g/dL (13.5-17.5); LYMPHOCYTES # (AUTO) 0.5 /CMM (0.8-4.8); LYMPHOCYTES % (AUTO) 6.2 % (20.0-44.0); MEAN CORPUSCULAR HGB CONC 33 g/dl (31.0-36.0); MEAN CORPUSCULAR VOLUME 86 fL (80-96); MONOCYTES % (AUTO) 12.8 % (2.0-12.0); NEUTROPHILS # (AUTO) 6.1 /CMM (1.8-8.9); PLATELET COUNT (AUTO) 295 /CMM (150-450); RED BLOOD CELL COUNT(AUTO) 3.36 MIL/uL (4.5-6.0); WHITE BLOOD COUNT (AUTO) 7.6 K/uL (4.3-11.0)
[2019-09-13 04:30] LABS: CALCIUM, SERUM 8.1 mg/dL (8.5-10.1); CREATININE 2.9 mg/dL (0.6-1.3); MAGNESIUM 1.7 mg/dL (1.8-2.4); PHOSPHORUS 3.9 mg/dL (2.5-4.9); POTASSIUM 3.4 mmol/L (3.5-5.1)
--- NOTE | 2019-09-13 04:30 | NUR ---
ICU/ROLL INSPECTOR AM LABS WERE DONE, AWAITING FOR ANY ABNORMAL XRAY.
[2019-09-13] MEDS ORDERED: TPN BAG #31 IV PRN ×6 (06:00)
--- NOTE | 2019-09-13 06:21 | NUR ---
DRAINS: TERENCE - 15cc serosanguineous R pigtail (accordion) - 50CC-brownish NGT via LIS this PM -N/A Nephrostomy tube - 450cc, yellowish FC - 350cc, yellowish COLOSTOMY-150cc
[2019-09-13] MEDS: POTASSIUM CL. PREMIX PERIPHER. 50 ML IV SCH ×4 (07:43→10:43)
[2019-09-13] MEDS: Magnesium 1GM/D5W 100ML PREMIX 100 ML IV SCH ×2 (07:43→08:52)
[2019-09-13] MEDS: NITROGLYCERIN PACKET 1 GM PACKET TOP SCH ×2 (08:51→17:42)
[2019-09-13] MEDS: FAMOTIDINE/PF INJ 20 MG/2 ML VIAL IV SCH ×2 (08:52→21:05)
[2019-09-13] MEDS: OLANZAPINE 5 MG/TAB.RAPDIS SL SCH ×2 (08:52→21:43)
--- NOTE | 2019-09-13 10:46 | NUR ---
RN NOTE 0715: [id number] patient awake, restless. Pulled out NGT from previous shift. With CAREER TECHNOLOGY TEACHER restraints on. Trache to cool aerosol, tolerated 28% FIO2. No repspiratory distress noted at this time. With RSC HD cath intact. CHENCHO PICC intact, on TPN @ 60. RLQ TERENCE drain, noted with minimal serous output. With RLQ accordion IR drain, noted with brownish discharge, 50mL per previous shift, per previous shift, not working, will continue to monitor. RLQ colostomy. R flank nephrostomy, noted with delma colored urine drained to BSD. Acuña cath intact, noted with delma colored urine to BSD. 0800: Changed patient and rendered bed bath for patient noted with restlessness. Removed KCI mattress due to patient keeps on moving, at risk for fall. Rendered skin treatment. With order to may transfer to [facility] per cardio, removed CVP monitoring,w as reading 8. 0830: Done with bed bath, patient able to rest and became calm. Tried to place NGT with CN but unsuccessful, noted with bleeding, let patient rest for now. 0930: HD nurse at bedside, reported K 3.4, 4 bags of KCl ongoing. 1030: HD ongoing, tolerated, able to give Olanzapine with apple sauce orally. Informed Dr. Ivan unable to place NGT and was bleeding. Made MD aware patient had residuals of 35mL when he was on NGT feeding. Awaiting for new orders.
--- NOTE | 2019-09-13 12:20 | NUR ---
RN NOTE Done with HD, no output per HD nurse report. Obtained order from MD to do swallow eval due to unable to place new NGT. Removed TOOL POLISHER restraints for now, will monitor for need of the TOOL POLISHER restraints.
[2019-09-13] MEDS ORDERED: TPN BAG #32 IV PRN ×4 (13:30)
[2019-09-13] MEDS: FAT EMULSION 20% 500 ML in PREMIX 1 EA IV SCH (13:39)
[2019-09-13] MEDS: INSULIN REGULAR, HUMAN 100 UNIT/ML 3 ML VIAL SQ PRN (17:47)
--- NOTE | 2019-09-13 19:30 | NUR ---
Received patient awake alert follows simple commands.ST 111-115 per monitor.Normotensive. On T-piece 28% via trach well tolerated no respiratory distress noted.NPO status awaiting swallow eval in AM.TPN and Lipids infusing well via CHENCHO PICC LINE.Site intact.FC to gravity. Left Nephrostomy tube with yellow output,TERENCE with small serosanguineous drainage.Right drain tube with small drainage.Turned and repositioned.Safety measures maintained.Continue monitoring.
--- NOTE | 2019-09-13 19:30 | NUR ---
RN NOTE No any significant changes. Placed back on 2 TELEPHONE INFORMATION SUPERVISOR restraints for agitation. Endorsed to next shift.
--- NOTE | 2019-09-13 22:47 | NUR ---
[facility] RN NOTE REPORT RECEIVED FROM ZENY MANN FROM ICU FOR HTOMAS.
--- NOTE | 2019-09-13 22:50 | NUR ---
Patient awake alert in no acute distress.VSS.All due medications administered. Patient transferred to [facility] via bed in stable condition with same orders. Report given to JOHNATHAN Mckeon for continuity of care.Belongings given to patient only a pair of shoes.
--- NOTE | 2019-09-13 22:59 | NUR ---
Pt transferred to 115-1
[2019-09-13] MEDS ORDERED: TPN BAG #33 IV PRN ×6 (23:00)
--- NOTE | 2019-09-13 23:00 | NUR ---
[facility] RN NOTE PATIENT RECEIVED FROM ICU IN BED AWAKE AND ALERT ABLE TO FOLLOW SIMPLE COMMANDS. PATIENT DENIES S/S OF DISTRESS AT THIS TIME. PATIENT RESTLESS AND PULLING AT RESTRAINTS NO INJURY NOTED. CIRCULATION CHECK DONE. SKIN WARM AND DRY. PATIENT HR ST ON THE MONITOR. PATIENT DENIES CHEST PAIN. PATIENT ON 5L COOL AEROSOL ON VENT. PATIENT TOLERATING WELL. RN WILL CONTINUE TO MONITOR CHANGES. SAFETY PRECAUTIONS IN PLACE. DRAINS PATENT AND DRAINING TO GRAVITY.
[2019-09-14] VITALS: BP 116/92
[2019-09-14] MEDS: METOCLOPRAMIDE HCL 10 MG/2 ML VIAL IV SCH ×4 (01:52→20:37)
[2019-09-14 04:00] VITALS: BP_SYST 134; BP_SYST 146; BP_DIAS 84; BP_DIAS 90
[2019-09-14] MEDS: BLOOD SUGAR DIAGNOSTIC 1 EACH STRIP IN SCH ×3 (05:51→18:53)
[2019-09-14 06:56] LABS: CALCIUM, SERUM 7.6 mg/dL (8.5-10.1); CREATININE 2.4 mg/dL (0.6-1.3); PHOSPHORUS 2.9 mg/dL (2.5-4.9); POTASSIUM 4.1 mmol/L (3.5-5.1)
[2019-09-14 08:00] VITALS: BP 124/57
[2019-09-14] MEDS: OLANZAPINE 5 MG/TAB.RAPDIS SL SCH ×2 (08:26→22:05)
[2019-09-14] MEDS: FAMOTIDINE/PF INJ 20 MG/2 ML VIAL IV SCH ×2 (08:27→21:52)
[2019-09-14] MEDS: NITROGLYCERIN PACKET 1 GM PACKET TOP SCH ×2 (08:28→17:00)
--- NOTE | 2019-09-14 08:36 | NUR ---
RN NOTE REPORT GIVEN TO JOHNATHAN HARTLEY IN [facility], PT REMAINED STABLE, DRAINS INTACT, ENDORSED TO FOLLOW UP WITH SPEECH THERAPIST TO ASSESS SWALLOW FUNCTION, AND WITH SURGEON ABOUT ABDOMINAL SURGICAL SITE OPEN WOUND WITH STABLES.
[2019-09-14 12:00] VITALS: BP 137/77
[2019-09-14] MEDS ORDERED: OLAN5TAB6 SL (12:44)
[2019-09-14] MEDS ORDERED: NUT.237L65 GT (12:44)
[2019-09-14] MEDS ORDERED: ACET650S11 RC (12:44)
[2019-09-14] MEDS ORDERED: METO5VIA6 IV (12:44)
[2019-09-14] MEDS ORDERED: FAMO20VI5 IV (12:44)
[2019-09-14] MEDS: LORAZEPAM INJ 2 MG/ML VIAL IV PRN (12:57)
[2019-09-14] MEDS ORDERED: FEE PK DOSING 1 MIN EA MC ONE ×2 (13:22→16:23)
[2019-09-14] MEDS ORDERED: VANCOMYCIN POST DIALYSIS 500MG IV PRN ×2 (13:30)
[2019-09-14] MEDS ORDERED: VANCOMYCIN 1 GM in IV D5W 250ml IV ONE (13:30)
[2019-09-14] MEDS ORDERED: CEFTRIAXONE 1 G in IV D5W 50 ML IV SCH (14:00)
[2019-09-14 16:00] VITALS: BP 127/79
[2019-09-14] MEDS ORDERED: AMIKACIN 500 MG in IV D5W 100 ML IV PRN (16:30)
[2019-09-14] MEDS ORDERED: DOSING PER PHARMACY-AMIKACI IV XX PRN (16:30)
[2019-09-14] MEDS ORDERED: AMIKACIN IV ONE (17:00)
[2019-09-14] MEDS: FLUCONAZOLE IN NS 100 MG in PREMIX 1 EA IV SCH ×2 (17:00)
[2019-09-14] MEDS ORDERED: D5W IV ONE (17:00)
--- NOTE | 2019-09-14 18:00 | NUR ---
[facility] RN Closing Sanjeev Ivan DNP visualized abdominal wound and accordian purulent drainage. Aware of fevers, ordered and sent off - sputum cx, urine cx (drawn from jay port), blood culture. See I/Os - TERENCE drainage 5mL DARK ANNY in color, colostomy 200mL, L neph 300mL, jay 475mL, abd drainage bag marked @75mL. All drains intact and draining. PICC line intact, patient restrained and restless. Ativan given x1. Talked to family members today with PMV. NG insertion ordered by Sanjeev Ivan, endorsed to shift stacker.
[2019-09-14 20:00] VITALS: BP 145/92
--- NOTE | 2019-09-14 20:00 | NUR ---
RECEIVED PATIENT AWAKE,ALERT,FOLLOWS SIMPLE COMMANDS BUT VERY RESTLESS/AGITATED IN BED ,MAINTAINED ON BILATERAL SOFT WRIST RESTRAINTS.WITH MULTIPLE DRAINS( TERENCE @ RUQ TO BULB SUCTION , NEPHROSTOMY TUBE @ LEFT LATERAL UPPER ABDOMEN, PIG TAIL TUBE @ RIGHT LATERAL ABDOMEN TO VAC /DRAINAGE BAG.MID ABDOMINAL INCISSION WITH STAPLE SUTURES WITH SLIGHT DRAINAGE .,COLOSTOMY BAG @ LLQ WITH YELLOWISH SEMILIQUID/SOFT DRAINAGE.
--- NOTE | 2019-09-14 21:00 | NUR ---
RIGHT PIGTAIL DRAIN DRESSING SOILED,DRESSING REMOVED TO CHANGE BUT NOTED TUBE IS OUT BUT STILL SUTURED TO THE SKIN. COLOSTOMY ALSO WITH LEAKAGE,COLOSTOMY DRAINAGE BAG CHANGED,SKIN KEPT CLEAN AND DRY. PM CARE/WASH DONE.
--- NOTE | 2019-09-14 22:00 | NUR ---
CALLED MD TO BE MADE AWARE THAT PIG TAIL TUBE IS OUT 2229 RESPONDED,MADE HIM AWARE THAT PIG TAIL DRAIN IS OUT. RESPONDED AND GAVE INSTRUCTION TO REPORT IT TO MD IN AM.
--- NOTE | 2019-09-14 23:30 | NUR ---
NELLA ANN MADE ROUNDS IN THE UNIT,MADE HIM AWARE THAT THE PIGTAIL DRAIN WAS FOUND TO BE OUT TONIGHT,WENT TO THE BEDSIDE AND CHECKED AND EXAMINED THE ABDOMEN/SURGICAL SITE. SAID IR WILL PROBABLY NEED TO REINSERT DRAIN BACK IN THE MORNING.
[2019-09-15] VITALS (7 sets, daily range): BP systolic 127–162; BP diastolic 70–91
--- NOTE | 2019-09-15 | NUR ---
REMIANS AWAKE,RESTLESS AND AGITATED,STABLE OTHERWISE NOT IN ANY DISTRESS.COMFORT CARE DONE,NEEDS ATTENDED,MAINTAINED ON BILATERAL SOFT WRIST RESTRAINTS
[2019-09-15] MEDS: LORAZEPAM INJ 2 MG/ML VIAL IV PRN (00:40)
[2019-09-15] MEDS: BLOOD SUGAR DIAGNOSTIC 1 EACH STRIP IN SCH ×4 (00:53→17:54)
[2019-09-15] MEDS: METOCLOPRAMIDE HCL 10 MG/2 ML VIAL IV SCH ×4 (02:06→20:07)
[2019-09-15] MEDS: IV NS 0.9% 250 ML IV PRN (03:40)
--- NOTE | 2019-09-15 04:00 | NUR ---
STILL RESTLESS BUT CALMER NOW,STABLE,NOT IN ANY DISTRESS.
[2019-09-15] MEDS ORDERED: TPN BAG #34 IV PRN ×4 (05:00)
--- NOTE | 2019-09-15 06:00 | NUR ---
NEPHROSTOMY CFTJIUQ=051 ML. TERENCE ONLY 5 ML, COLOSTOMY=50
--- NOTE | 2019-09-15 06:30 | NUR ---
ATTEMPTED TO INSERT NGT(SINCE PATIENT IS RESTLESS AND AGITATED),SUCCESFULLY INSERTED NGT VIA LEFT NARES. 0650 CHEST X RAY DONE TO CONFIRM NGT PLACEMENT.
[2019-09-15 06:58] LABS: BASOPHILS % (AUTO) 0.2 % (0.0-2.0); EOSINOPHILS % (AUTO) 0.9 % (0.0-6.0); HEMATOCRIT 21 % (39-51); HEMOGLOBIN 7.1 g/dL (13.5-17.5); LYMPHOCYTES # (AUTO) 0.8 /CMM (0.8-4.8); LYMPHOCYTES % (AUTO) 7.1 % (20.0-44.0); MEAN CORPUSCULAR HGB CONC 33 g/dl (31.0-36.0); MEAN CORPUSCULAR VOLUME 86 fL (80-96); MONOCYTES # (AUTO) 1.3 /CMM (0.1-1.30); MONOCYTES % (AUTO) 11.1 % (2.0-12.0); NEUTROPHILS # (AUTO) 9.5 /CMM (1.8-8.9); NEUTROPHILS % (AUTO) 80.7 % (43.0-81.0); PLATELET COUNT (AUTO) 334 /CMM (150-450); RED BLOOD CELL COUNT(AUTO) 2.48 MIL/uL (4.5-6.0); WHITE BLOOD COUNT (AUTO) 11.8 K/uL (4.3-11.0)
--- NOTE | 2019-09-15 07:00 | NUR ---
ENDORSED/REPORT GIVEN TO FREDDY MANN.
[2019-09-15 07:39] LABS: CREATININE 2.6 mg/dL (0.6-1.3); MAGNESIUM 1.7 mg/dL (1.8-2.4); PHOSPHORUS 3.6 mg/dL (2.5-4.9); POTASSIUM 3.5 mmol/L (3.5-5.1)
[2019-09-15] MEDS ORDERED: RXVAN XX (11:27)
[2019-09-15] MEDS ORDERED: RXAMI XX (11:27)
[2019-09-15] MEDS ORDERED: TPN ADD IV (11:27)
[2019-09-15] MEDS ORDERED: FLUC200P12 IV (11:27)
[2019-09-15] MEDS ORDERED: FAT250EM4 IV (11:27)
[2019-09-15] MEDS ORDERED: AMIK250V13 IJ (11:27)
[2019-09-15] MEDS ORDERED: VANC500F2 IV (11:27)
[2019-09-15] MEDS: OLANZAPINE 5 MG/TAB.RAPDIS SL SCH ×2 (11:46→22:05)
[2019-09-15] MEDS: FAMOTIDINE/PF INJ 20 MG/2 ML VIAL IV SCH ×2 (11:47→20:07)
[2019-09-15] MEDS: NITROGLYCERIN PACKET 1 GM PACKET TOP SCH ×2 (11:50→16:13)
[2019-09-15] MEDS ORDERED: VANCOMYCIN 1 GM in IV D5W 250 ML IV ONE (14:00)
[2019-09-15] MEDS: FAT EMULSION 20% 500 ML in PREMIX 1 EA IV SCH (14:13)
[2019-09-15] MEDS ORDERED: TPN BAG #35 IV PRN ×10 (14:30)
--- NOTE | 2019-09-15 15:10 | NUR ---
BARREL LATHE OPERATOR Note for THOMAS Patient resting, eyes closed, arousable to verbal & tactile stimuli. On 5L cool aerosol via Tpiece. No SOB. Tele monitor attached. Patient pulled out NGT today, despite being restrained. Patient restless. TERENCE drain removed @1200 by Sanjeev Ivan, no bleeding noted. L nephrostomy draining well, jay in place, PICC line intact, infusing TPN and lipids as ordered. Seen by surgery BEER RUNNER Zayra. Patient seen by speech therapist, who ordered puree diet. Unable to feed patient, as patient too sleepy. 1330 dose of reglan not given due to late admin of morning dose d/t dialysis. 2L removed today Addendum: 09/15/19 at 1557 by FREDDY ALVARADO RN patient was restless this am, is now resting * post HD vanco given.
--- NOTE | 2019-09-15 15:30 | NUR ---
RN NOTES RECEIVED PT ON BED, STABLE, CONTINUE TO MONITOR.
[2019-09-15] MEDS: FLUCONAZOLE IN NS 100 MG in PREMIX 1 EA IV SCH ×2 (16:09)
--- NOTE | 2019-09-15 19:03 | NUR ---
RN NOTES NO SIGNFICNAT CHANGES NOTED , WILL ENDORSE TO BOILER CONTROL ROOM OPERATOR NURSE FOR CONTINUITY OF CARE.
--- NOTE | 2019-09-15 19:10 | NUR ---
PANELBOARD TANK PUMPER NOTE PATIENT RECEIVED REST RESTING WITH EYES CLOSED. AROUSABLE TO TACTILE STIMULI. PATIENT ON TPEICE TOLERATING WELL NO S/S OF RESP DISTRESS. BREATHING EVEN AND UNLABORED. PATIENT ON TEL MONITOR HR ST HR 112. PATIENT APPEARS TO HAVE NO S/S OF DISTRESS. PATIENT COMFORTABLE CURRENTLY NO S/S OF RESTLESSNESS. PATIENT LIPIDS AND TPN RUNNING ORDERED THROUGH RIGHT UPPER ARM PICC. NO S/S OF INFECTION OR INFILTRATION. RN WILL CONTINUE TO MONITOR FOR CHANGES.
--- NOTE | 2019-09-15 20:52 | NUR ---
RT NOTE PT RECEIVED ON COOL AEROSOL @ 28%. SX DONE, SMALL THICK WHITE YELLOW SECRETIONS NOTED. WATER /2 FULL. NO SOB NOTED AT THIS TIME. WILL CONTINUE TO MONITOR T/O SHIFT. Addendum: 09/15/19 at 2052 by JOZEF IQBAL RT Amended: Links added.
--- NOTE | 2019-09-15 22:30 | NUR ---
RT NOTE PLACED PT ON PMV FOR EATING. RN, NEFTALY, AT BEDSIDE. NO SOB NOTED WHEN EATING. PT TOLERATED WELL.
[2019-09-16] VITALS (7 sets, daily range): BP systolic 115–153; BP diastolic 71–97
[2019-09-16] MEDS: BLOOD SUGAR DIAGNOSTIC 1 EACH STRIP IN SCH ×4 (00:45→17:08)
[2019-09-16] MEDS: diphenhydrAMINE HCL 50 MG/ML VIAL IV PRN (00:45)
[2019-09-16] MEDS: METOCLOPRAMIDE HCL 10 MG/2 ML VIAL IV SCH ×4 (00:45→18:33)
[2019-09-16] MEDS ORDERED: TPN BAG #36 IV PRN ×4 (06:00)
[2019-09-16 06:55] LABS: BASOPHILS % (AUTO) 0.3 % (0.0-2.0); HEMATOCRIT 21 % (39-51); LYMPHOCYTES # (AUTO) 0.8 /CMM (0.8-4.8); LYMPHOCYTES % (AUTO) 6.2 % (20.0-44.0); MEAN CORPUSCULAR HGB CONC 34 g/dl (31.0-36.0); MEAN CORPUSCULAR VOLUME 85 fL (80-96); MONOCYTES # (AUTO) 1.3 /CMM (0.1-1.30); MONOCYTES % (AUTO) 10.7 % (2.0-12.0); NEUTROPHILS % (AUTO) 81.8 % (43.0-81.0); PLATELET COUNT (AUTO) 330 /CMM (150-450); RED BLOOD CELL COUNT(AUTO) 2.42 MIL/uL (4.5-6.0); WHITE BLOOD COUNT (AUTO) 12.2 K/uL (4.3-11.0)
[2019-09-16 07:04] LABS: CALCIUM, SERUM 8.1 mg/dL (8.5-10.1); CREATININE 2.3 mg/dL (0.6-1.3); MAGNESIUM 1.7 mg/dL (1.8-2.4); PHOSPHORUS 3.6 mg/dL (2.5-4.9); POTASSIUM 3.6 mmol/L (3.5-5.1)
[2019-09-16] MEDS: FAMOTIDINE/PF INJ 20 MG/2 ML VIAL IV SCH ×2 (09:37→21:22)
[2019-09-16] MEDS: OLANZAPINE 5 MG/TAB.RAPDIS SL SCH (09:37)
[2019-09-16] MEDS: NITROGLYCERIN PACKET 1 GM PACKET TOP SCH ×2 (09:38→17:10)
--- NOTE | 2019-09-16 12:52 | NUR ---
RN NOTE 0715: Received patient awake, noted with frequent movement despite of PHARMACY BENEFIT MANAGER restraints on for safety. With episodes of pulling out trache tube at times. CHENCHO PICC intact, TPN and Lipids ongoing. DVT pumps on. 0830: Tried Pureed diet, tolerated at this time. 0900: Started titrating TPN for patient able to tolerate diet. TPN on 50 now. 1100: Held titrating lower for patient placed on NPO for procedure prep. 1200: Back to bed, per Radio, perihepatic fluid is non-drainable. Dr. Ivan at bedside, talking to daughter. Isaias PEREZ, will hold discharge for now. On 1:1 sitter per Pushpa CHAKRABORTY. TPN on 40 now. 1230: Placed back on pureed diet, tolerated well. Off PHARMACY BENEFIT MANAGER restaints, antelmo at bedside. Addendum: 09/16/19 at 1532 by NICOLE BLAND RN Per , 1:1 sitter ordered for episodes of pulling out invasive tubings. And the episode of taking out the right drain 2 days ago.
[2019-09-16] MEDS: LORAZEPAM INJ 2 MG/ML VIAL IV PRN (13:49)
[2019-09-16] MEDS: FLUCONAZOLE IN NS 100 MG in PREMIX 1 EA IV SCH ×2 (17:09)
--- NOTE | 2019-09-16 18:29 | NUR ---
RN NOTE Turned off TPN after dinner, took 50% on dinner tray. No N/V noted. Kept HOB elevated.
--- NOTE | 2019-09-16 19:51 | NUR ---
SENSITOMETRIST OPENING NOTES RECEIVED PATIENT IN BED A/O X 2. PATIENT IS ABLE TO STATE NAME. PATIENT HAS TRACH WITH SHILEY # WITH COOL AEROSOL WITH TV AT 28. PATIENT SHOWS NO SIGNS OF SOB. PATIENT ON MONITOR SHOWING SINUS TACHY IN THE 110'S.PATIENT HAS COLOSTOMY ON THE LLQ INTACT WITH NO SIGN OF LEAKAGE. NEPHROSTOMY ATTACHED ON THE LT SHOWING INTACT. PATIENT HAS A SITTER AT BEDSIDE. PICC LINE IN THE CHENCHO S/L AND RCW HD CATH INTACT. ALL SAFETY PRECAUTIONS APPLIED WITH CONTINUE TO MONITOR PATIENT.
--- NOTE | 2019-09-16 20:59 | NUR ---
RT NOTE PT RECEIVED TRACHED ON COOL AEROSOL. WATER LEVEL GOOD. SX DONE, TRACH SECURED AND PATENT. NO SOB NOTED AT THIS TIME. SITTER @ BEDSIDE. WILL CONTINUE TO MONITOR T/O SHIFT. Addendum: 09/16/19 at 2100 by JOZEF IQBAL RT Amended: Links added.
[2019-09-17] VITALS (12 sets, daily range): BP systolic 108–149; BP diastolic 54–86
[2019-09-17] MEDS: BLOOD SUGAR DIAGNOSTIC 1 EACH STRIP IN SCH ×4 (00:21→17:42)
[2019-09-17] MEDS: METOCLOPRAMIDE HCL 10 MG/2 ML VIAL IV SCH ×4 (03:28→20:13)
[2019-09-17 07:11] LABS: BASOPHILS % (AUTO) 0.3 % (0.0-2.0); EOSINOPHILS % (AUTO) 1.2 % (0.0-6.0); LYMPHOCYTES # (AUTO) 0.8 /CMM (0.8-4.8); LYMPHOCYTES % (AUTO) 7.9 % (20.0-44.0); MEAN CORPUSCULAR HGB CONC 34 g/dl (31.0-36.0); MEAN CORPUSCULAR VOLUME 86 fL (80-96); MONOCYTES # (AUTO) 1.2 /CMM (0.1-1.30); MONOCYTES % (AUTO) 11.5 % (2.0-12.0); NEUTROPHILS # (AUTO) 8.4 /CMM (1.8-8.9); NEUTROPHILS % (AUTO) 79.1 % (43.0-81.0); PLATELET COUNT (AUTO) 297 /CMM (150-450); RED BLOOD CELL COUNT(AUTO) 2.36 MIL/uL (4.5-6.0); WHITE BLOOD COUNT (AUTO) 10.6 K/uL (4.3-11.0)
[2019-09-17 07:22] LABS: HEMOGLOBIN 6.9 g/dL (13.5-17.5)
[2019-09-17 07:23] LABS: HEMATOCRIT 20 % (39-51)
--- NOTE | 2019-09-17 07:24 | NUR ---
SWINE NUTRITIONIST CLOSING NOTE PATIENT IN BED WITH NO DISTRESS. ALL SAFETY PRECAUTIONS APPLIED AND SITTER AT BEDSIDE. ENDORSED PATIENT TO MORNING SHIFT NURSE FOR THOMAS.
[2019-09-17 07:35] LABS: CALCIUM, SERUM 8.2 mg/dL (8.5-10.1); CREATININE 2.3 mg/dL (0.6-1.3); MAGNESIUM 1.5 mg/dL (1.8-2.4); PHOSPHORUS 4.8 mg/dL (2.5-4.9); POTASSIUM 3.5 mmol/L (3.5-5.1)
--- NOTE | 2019-09-17 08:25 | NUR ---
received pt from security shift manager, a/o x2, follows simple commands, ST, on T tube at 28% fio02, sat well, lungs partially congested, no edema, tolerated diet, eats very little, f/c , nephrostomy and colostomy intact, v/s stable, no pain, pt turned and repositioned, sitter at the bedside.
--- NOTE | 2019-09-17 08:29 | NUR ---
RT NOTE PT RECEIVED TRACHED ON COOL AEROSOL. WATER LEVEL GOOD. SX DONE, TRACH SECURED AND PATENT. NO SOB NOTED AT THIS TIME. SITTER @ BEDSIDE. WILL CONTINUE TO MONITOR T/O SHIFT. Addendum: 09/17/19 at 0830 by LISSETTE MONTOYA RT Amended: Links added.
[2019-09-17] MEDS: FAMOTIDINE/PF INJ 20 MG/2 ML VIAL IV SCH ×2 (08:32→21:10)
[2019-09-17] MEDS: NITROGLYCERIN PACKET 1 GM PACKET TOP SCH ×2 (08:33→16:51)
[2019-09-17 08:49] LABS: LYMPHOCYTES % (MANUAL) 4 % (16-48); MONOCYTES % (MANUAL) 15 % (0-11.0); NEUTROPHILS % (MANUAL) 81 (42-76)
[2019-09-17] MEDS ORDERED: VANCOMYCIN 1 GM in IV D5W 250 ML IV ONE (14:00)
--- NOTE | 2019-09-17 16:35 | NUR ---
pt is resting in the bed, alert, confused, follows simple commands, ST, eats very little, f/c and nephrostomy have good output, v/s stable, no pain, 2 units PRBCs transfused, pt cleaned and changed.
[2019-09-17] MEDS: FLUCONAZOLE IN NS 100 MG in PREMIX 1 EA IV SCH ×2 (16:50)
--- NOTE | 2019-09-17 19:10 | NUR ---
RN OPENING NOTES: PATIENT IN BED, AWAKE, AND VERBALLY RESPONSIVE. NO RESPIRATORY DISTRESS. ON T-PIECE COOL AEROSOL. SITTER AT BEDSIDE. CHENCHO PICC LINE INTACT, PATENT, AND FLUSHING WELL. TKO. COLOSTOMY INTACT AND DRAINING BROWN STOOLS. RAMÍREZ AND NEPHROSTOMY INTACT, PATENT, AND DRAINING URINE. SAFETY PRECAUTIONS IMPLEMENTED. BED LOCKED, ALARM ON, AND IN LOWEST POSITION. HOB ELEVATED. SIDE RAILS X 2 UP. CALL LIGHT PLACED WITHIN REACH. WILL CONT. TO MONITOR.
[2019-09-18] VITALS: BP 150/71
[2019-09-18] MEDS: BLOOD SUGAR DIAGNOSTIC 1 EACH STRIP IN SCH ×5 (00:58→22:01)
--- NOTE | 2019-09-18 01:00 | NUR ---
RN NOTE: TEMP 100.1F, TYLENOL SUPPOSITORY ORDERED ADMINISTERED, COOLING MEASURES DONE. PATIENT TOLERATING NURSING INTERVENTIONS WELL. Addendum: 09/18/19 at 0419 by VALORIE OLIVO RN AT 0200, TEMP 98.4F ORALLY.
[2019-09-18] MEDS: ACETAMINOPHEN 650 MG/SUPP.RECT RC PRN (01:01)
[2019-09-18] MEDS: METOCLOPRAMIDE HCL 10 MG/2 ML VIAL IV SCH ×4 (01:32→19:53)
[2019-09-18 04:00] VITALS: BP 140/76
[2019-09-18] MEDS ORDERED: VANCOMYCIN POST DIALYSIS 500MG IV PRN ×2 (06:00)
[2019-09-18 06:57] LABS: BASOPHILS % (AUTO) 0.3 % (0.0-2.0); EOSINOPHILS % (AUTO) 1.4 % (0.0-6.0); HEMATOCRIT 26 % (39-51); HEMOGLOBIN 8.7 g/dL (13.5-17.5); LYMPHOCYTES # (AUTO) 0.9 /CMM (0.8-4.8); LYMPHOCYTES % (AUTO) 9.9 % (20.0-44.0); MEAN CORPUSCULAR HGB CONC 33 g/dl (31.0-36.0); MEAN CORPUSCULAR VOLUME 85 fL (80-96); MONOCYTES # (AUTO) 1.3 /CMM (0.1-1.30); MONOCYTES % (AUTO) 14.3 % (2.0-12.0); NEUTROPHILS # (AUTO) 6.9 /CMM (1.8-8.9); NEUTROPHILS % (AUTO) 74.1 % (43.0-81.0); PLATELET COUNT (AUTO) 250 /CMM (150-450); RED BLOOD CELL COUNT(AUTO) 3.06 MIL/uL (4.5-6.0); WHITE BLOOD COUNT (AUTO) 9.3 K/uL (4.3-11.0)
--- NOTE | 2019-09-18 07:10 | NUR ---
RN CLOSING NOTES: PATIENT IN BED, AWAKE, AND VERBALLY RESPONSIVE. NO RESPIRATORY DISTRESS. ON T-PIECE COOL AEROSOL. SITTER AT BEDSIDE. CHENCHO PICC LINE INTACT, PATENT, AND FLUSHING WELL. TKO. COLOSTOMY INTACT AND DRAINING BROWN STOOLS. RAMÍREZ AND NEPHROSTOMY INTACT, PATENT, AND DRAINING URINE. SAFETY PRECAUTIONS IMPLEMENTED. BED LOCKED, ALARM ON, AND IN LOWEST POSITION. HOB ELEVATED. SIDE RAILS X 2 UP. AFEBRILE AT THIS TIME, TEMP 98.8F. ENDORSED TO AM SHIFT NURSE FOR CONTINUITY OF CARE.
--- NOTE | 2019-09-18 07:30 | NUR ---
WOODWORK SALVAGE INSPECTOR INITIAL NOTE RECEIVED PATIENT AWAKE, ALERT, AND ORIENTED. DENIES PAIN OR DISCOMFORT. DENIES RESPIRATORY DISTRESS NOTED, ON C/A 5LPM O2 VIA TRACH. TRACH C/D/I. ON TELE MONITOR SR. SKIN WARM AND DRY TO TOUCH. WITH LEFT NEPHROSTOMY TUBE IN PLACE, DRAINING BY GRAVITY. F/C PATENT AND DRAINING BY GRAVITY. COLOSTOMY BAG IN PLACE. HOB ELEVATED. SIDE RAILS UP AND LOCKED. BED KEPT AT LOWEST POSITION. SITTER AT BEDSIDE. CALL LIGHT KEPT WITHIN EASY REACH. WILL CONTINUE TO MONITOR.
[2019-09-18 08:00] VITALS: BP 166/86
[2019-09-18] MEDS: Magnesium 1GM/D5W 100ML PREMIX 100 ML IV SCH ×2 (08:23→08:51)
[2019-09-18] MEDS: FAMOTIDINE/PF INJ 20 MG/2 ML VIAL IV SCH ×2 (08:49→22:01)
[2019-09-18] MEDS: NITROGLYCERIN PACKET 1 GM PACKET TOP SCH ×2 (08:56→17:47)
[2019-09-18] MEDS ORDERED: VANCOMYCIN 500 MG in IV D5W 100 ML IV ONE (12:00)
[2019-09-18] MEDS ORDERED: Magnesium 1GM/D5W 100ML PREMIX 100 ML IV SCH (13:30)
[2019-09-18 16:00] VITALS: BP 154/95
[2019-09-18] MEDS: FLUCONAZOLE (100 MG) 100 MG TABLET PO SCH (17:45)
--- NOTE | 2019-09-18 19:42 | NUR ---
MS RN CLOSING NOTE ALL NEEDS ANTICIPATED AND MET. ALL DUE MEDS GIVEN. DPOA PAPERWORK PLACED IN CHART. FOR PLANNED THORACENTESIS AND DIALYSIS TOMORROW. NO RESPIRATORY DISTRESS NOTED. F/C PATENT, INTACT DRAINING BY GRAVITY. COLOSTOMY IN PLACE. LEFT NEPHROSTOMY BAG IN PLACE, DRAINING BY GRAVITY. HOB ELEVATED. SIDE RAILS UP AND LOCKED. BED KEPT AT LOWEST POSITION. SITTER AT BEDSIDE. CALL LIGHT KEPT WITHIN EASY REACH. CONTINUITY OF CARE ENDORSED TO PM NURSE.
[2019-09-18 20:00] VITALS: BP 151/89
[2019-09-18] MEDS ORDERED: DEXTROSE 50%-WATER 50 ML DISP.SYRIN IV PRN (20:00)
--- NOTE | 2019-09-18 20:38 | NUR ---
RN NOTES, ENDORSED PATIENT FROM JOHNATHAN KIM FOR CONTINUATION OF CARE, PATIENT IN BED IN COOL AEROSOL WITH TACH IN PLACED, AWAKE A/O X4 ABLE TO VERBALIZED NEEDS AND CONCERNS, CHENCHO PICC LINE IN PLACED, AND RCW HD CATH FOR HD, NO SOB/ACUTE DISTRESS NOTED WITH OPTIMAL O2 SAT LEVEL, F/C PATENT, INTACT DRAINING BY GRAVITY, COLOSTOMY IN PLACE WITH MINIMAL AMOUNT OF YELLOWISH STOOL, . LEFT NEPHROSTOMY BAG IN PLACE, DRAINING BY GRAVITY, NOTHING NOTED IN BAG AT THIS TIME, HOB ELEVATED, SIDE RAILS UP AND LOCKED, BED LOCKED AND LOWEST POSITION, SITTER AT BEDSIDE, CALL LIGHT WITHIN REACH, WILL CONTINUE TO MONITOR CLOSELY.
[2019-09-19] MEDS: diphenhydrAMINE HCL 50 MG/ML VIAL IV PRN (00:31)
[2019-09-19] MEDS: METOCLOPRAMIDE HCL 10 MG/2 ML VIAL IV SCH ×4 (01:45→20:17)
[2019-09-19 04:00] VITALS: BP 152/88
[2019-09-19] MEDS ORDERED: VANCOMYCIN POST DIALYSIS 500MG IV PRN ×2 (06:00)
--- NOTE | 2019-09-19 07:00 | NUR ---
MS RN NOTES, PATIENT IN BED AWAKE, A/O X4 ABLE TO VERBALIZED NEEDS AND CONCERNS, BREATHING EVEN AND UNLABORED, ON COOL AEROSOL, WITH TRACH, NO SOB/ACUTE DISTRESS NOTED AT THIS TIME, WITH OPTIMAL SATURATION LEVEL, NO SIGNIFICANT CHANGE IN CONDITION DURING THE NIGHT, CONTINUE WITH SITTER AT BEDSIDE, ALL NEEDS PROVIDED, SAFETY MEASURES IN PLACED, CALL LIGHT WITHIN REACH BED LOCKED IN LOWEST POSITION, WILL ENDORSE CONTINUITY OA CARE TO ONCOMING NURSE.
[2019-09-19 07:22] LABS: BASOPHILS % (AUTO) 0.2 % (0.0-2.0); HEMATOCRIT 24 % (39-51); HEMOGLOBIN 8.2 g/dL (13.5-17.5); LYMPHOCYTES # (AUTO) 0.6 /CMM (0.8-4.8); LYMPHOCYTES % (AUTO) 7.6 % (20.0-44.0); MEAN CORPUSCULAR HGB CONC 33 g/dl (31.0-36.0); MEAN CORPUSCULAR VOLUME 85 fL (80-96); MONOCYTES % (AUTO) 11.8 % (2.0-12.0); NEUTROPHILS # (AUTO) 6.5 /CMM (1.8-8.9); NEUTROPHILS % (AUTO) 79.4 % (43.0-81.0); PLATELET COUNT (AUTO) 243 /CMM (150-450); RED BLOOD CELL COUNT(AUTO) 2.87 MIL/uL (4.5-6.0); WHITE BLOOD COUNT (AUTO) 8.2 K/uL (4.3-11.0)
[2019-09-19 07:38] LABS: ALBUMIN 1.7 g/dL (3.4-5.0); BILIRUBIN,TOTAL 0.6 mg/dL (0.2-1.0); CALCIUM, SERUM 8.2 mg/dL (8.5-10.1); CREATININE 1.8 mg/dL (0.6-1.3); MAGNESIUM 1.7 mg/dL (1.8-2.4); POTASSIUM 3.5 mmol/L (3.5-5.1); TOTAL PROTEIN, SERUM 6.4 g/dL (6.4-8.2)
[2019-09-19 08:00] VITALS: BP 151/89
[2019-09-19] MEDS: FAMOTIDINE/PF INJ 20 MG/2 ML VIAL IV SCH ×2 (08:17→21:14)
[2019-09-19] MEDS: BLOOD SUGAR DIAGNOSTIC 1 EACH STRIP IN SCH ×4 (08:17→21:39)
[2019-09-19] MEDS: NITROGLYCERIN PACKET 1 GM PACKET TOP SCH ×2 (08:18→17:55)
[2019-09-19] MEDS: ACETAMINOPHEN 650 MG/SUPP.RECT RC PRN ×2 (09:49→23:07)
[2019-09-19] MEDS ORDERED: Magnesium 1GM/D5W 100ML PREMIX 100 ML IV SCH ×2 (11:00→14:30)
[2019-09-19 11:56] VITALS: BP 157/89
--- NOTE | 2019-09-19 11:56 | NUR ---
S/P R THORACENTESIS BY DR. HORN, 900mL FLUID LIGHT PINK, SENT TO LAB/CYTOLOGY - FORM FILLED OUT, STAT CXR ORDERED, NO SOB OR DISTRESS NOTED, SEE VITALS
[2019-09-19] MEDS ORDERED: Magnesium 1GM/D5W 100ML PREMIX PIGGYBACK IV ONE (14:30)
[2019-09-19] MEDS: PROSOURCE / PROSTAT (PYXIS) 30 ML UDC GT SCH ×2 (14:30→17:00)
[2019-09-19 16:00] VITALS: BP 132/82
[2019-09-19] MEDS ORDERED: VANCOMYCIN 1 GM in IV D5W 250 ML IV ONE (17:00)
[2019-09-19] MEDS: FLUCONAZOLE (100 MG) 100 MG TABLET PO SCH (17:55)
--- NOTE | 2019-09-19 18:51 | NUR ---
MS RN Closing Patient A/Ox2, on 5L O2 via TP + PMV in place, no SOB. Sleeping at this time, appears comfortable, sitter at bedside. See I/O documentation -- Acuña (675mL), nephrostomy (250mL), colostomy (100mL) draining. S/P R thora today, 900mL removed, fluid sent to lab/cytology. Reevaluated by ST, diet advanced to soft. HD completed, 0mL out, BP stable, post HD vanco given. No exudate noted from abdominal incision, wound care completed as ordered.
--- NOTE | 2019-09-19 19:30 | NUR ---
RN NOTES, PATIENT IN BED AWAKE A/O X4 ABLE TO VERBALIZED NEEDS AND CONCERNS, IN COOL AEROSOL WITH TRA CH IN PLACED, NO SOB/ACUTE DISTRESS NOTED WITH OPTIMAL O2 SAT LEVEL, DAUGHTER AT BEDSIDE, CHENCHO PICC LINE IN PLACED, AND RCW HD CATH FOR HD INTACT, NO BLEEDING OR ABNORMALITY NOTED AT SITE, F/C IN PLACED, PATENT AND INTACT DRAINING YELLOW URINE BY GRAVITY, COLOSTOMY IN PLACE WITH MINIMAL AMOUNT OF YELLOWISH STOOL, LEFT NEPHROSTOMY BAG IN PLACE, DRAINING BY GRAVITY, 10ML NOTED IN BAG AT THIS TIME, HOB ELEVATED, BILATERAL SIDE RAILS UP, NO BLEEDING NOTED IN ABDOMINAL INCISION, WILL PROVIDE TX ORDERED, BED LOCKED AND IN LOWEST POSITION, SITTER AT BEDSIDE, CALL LIGHT WITHIN REACH, WILL CONTINUE TO MONITOR CLOSELY.
[2019-09-19 20:00] VITALS: BP 159/70
[2019-09-19] MEDS: INSULIN REGULAR, HUMAN 100 UNIT/ML 3 ML VIAL SQ PRN (21:40)
[2019-09-20] MEDS: METOCLOPRAMIDE HCL 10 MG/2 ML VIAL IV SCH ×4 (01:02→19:52)
--- NOTE | 2019-09-20 02:30 | NUR ---
RN NOTES, ENDORSED PATIENT TO JOHNATHAN BARKER FOR CONTINUATION OF CARE, PATIENT ASLEEP AT THIS TIME, BUT AROUSES EASILY TO VERBAL STIMULI, NO SOB/ACUTE DISTRESS, SITTER AT BEDSIDE.
[2019-09-20 04:00] VITALS: BP 159/89
[2019-09-20 06:46] LABS: BASOPHILS % (AUTO) 0.3 % (0.0-2.0); EOSINOPHILS % (AUTO) 1.4 % (0.0-6.0); HEMATOCRIT 24 % (39-51); HEMOGLOBIN 8.2 g/dL (13.5-17.5); LYMPHOCYTES # (AUTO) 0.7 /CMM (0.8-4.8); LYMPHOCYTES % (AUTO) 9.9 % (20.0-44.0); MEAN CORPUSCULAR HGB CONC 34 g/dl (31.0-36.0); MEAN CORPUSCULAR VOLUME 85 fL (80-96); MONOCYTES # (AUTO) 0.9 /CMM (0.1-1.30); MONOCYTES % (AUTO) 13.3 % (2.0-12.0); NEUTROPHILS # (AUTO) 5.2 /CMM (1.8-8.9); NEUTROPHILS % (AUTO) 75.1 % (43.0-81.0); PLATELET COUNT (AUTO) 218 /CMM (150-450); RED BLOOD CELL COUNT(AUTO) 2.86 MIL/uL (4.5-6.0); WHITE BLOOD COUNT (AUTO) 6.9 K/uL (4.3-11.0)
[2019-09-20 07:24] LABS: CALCIUM, SERUM 7.9 mg/dL (8.5-10.1); CREATININE 1.5 mg/dL (0.6-1.3); MAGNESIUM 1.8 mg/dL (1.8-2.4); PHOSPHORUS 3.8 mg/dL (2.5-4.9); POTASSIUM 3.4 mmol/L (3.5-5.1)
--- NOTE | 2019-09-20 07:30 | NUR ---
RN OPENING NOTES Patient in bed awake, A/O x 4. Verbally responsive and able to make needs known. Respiration even and unlabored, on cool aerosol with trach. no sob/ acute distress noted at this time. Denies any pain or discomfort. Skin warm and dry to touch. With nephrostomy tube in place, draining by gravity. Acuña catheter patent and intact. Colostomy bag bag in place HOB elevated. Bed in lowest position, Call light within reach. Will continue to monitor
--- NOTE | 2019-09-20 07:38 | NUR ---
MS RN CLOSING NOTE PATIENT IN BED WITH NO SIGN OF ANY DISTRESS. SITTER AT BEDSIDE. TOLERATING T-PIECE. WITH NO SOB. ALL SAFETY PRECAUTIONS APPLIED, ENDORSED PATIENT TO MORNING NURSE
[2019-09-20] MEDS: BLOOD SUGAR DIAGNOSTIC 1 EACH STRIP IN SCH ×4 (07:43→21:12)
[2019-09-20 08:00] VITALS: BP 156/89
[2019-09-20] MEDS: PROSOURCE / PROSTAT (PYXIS) 30 ML UDC GT SCH ×3 (08:19→17:00)
[2019-09-20] MEDS: FAMOTIDINE/PF INJ 20 MG/2 ML VIAL IV SCH ×2 (08:20→21:12)
[2019-09-20] MEDS: NITROGLYCERIN PACKET 1 GM PACKET TOP SCH ×2 (08:49→16:59)
[2019-09-20] MEDS ORDERED: POTASSIUM CHLORIDE 20 MEQ POWDER PACKET GT SCH (10:30)
[2019-09-20 12:00] VITALS: BP 156/89
[2019-09-20 16:00] VITALS: BP 156/87
--- NOTE | 2019-09-20 18:43 | NUR ---
RN MS CLOSING NOTES Patient in bed, awake a/o x 4 but forgetful. No signs of acute distress noted during am shift. Tolerating the cool aerosol. No sob noted. Afebrile. Wound care dressing changed and tolerated well. PICC line on CHENCHO, intact, patent and flushed well. No signs of infiltration. Acuña catheter and nephrostomy intact, patent and drained well via gravity. All needs attended and met. Will endorse to noc shift
--- NOTE | 2019-09-20 19:35 | NUR ---
RN NOTE RECEIVED PT ALERT AND ORIENTED IN BED IN SEMI CROWE'S POSITION. PT ON COOL AEROSOL AND TOLERATING WELL. NO SIGNS OF SOB. PATIENT DENIES PAIN OR DISCOMFORT. RAMÍREZ CATHETER IN PLACE AND DRAINING CLEAR YELLOW URINE. NEPHROSTOMY IN PLACE AND DRAINING CLEAR YELLOW URINE. COLOSTOMY IN PLACE. SITTER AT BED SIDE. CALL LIGHT WITHIN REACH. WILL MONITOR.
[2019-09-20 20:00] VITALS: BP 131/77
[2019-09-21] MEDS: METOCLOPRAMIDE HCL 10 MG/2 ML VIAL IV SCH ×4 (00:31→19:49)
[2019-09-21] MEDS: LORAZEPAM INJ 2 MG/ML VIAL IV PRN (00:32)
[2019-09-21 04:00] VITALS: BP 146/88
--- NOTE | 2019-09-21 07:06 | NUR ---
MS RN OPENING NOTES RECEIVED PT AWAKE IN BED IN NO ACUTE SIGNS OF DISTRESS. HOB ELEVATED. SITTER AT BEDSIDE. A/O X3. VERBALLY RESPONSIVE, DENIES PAIN OR ANY DISCOMFORTS AT THIS TIME. PT ON COOL AEROSOL WITH PMV IN PLACE, TOLERATING WELL WITH NO SIGNS OF SOB NOTED. PICC LINE ON CHENCHO INTACT AND PATENT WITH DRESSING C/D/I. RAMÍREZ CATHETER IN PLACE AND DRAINING CLEAR YELLOW URINE. NEPHROSTOMY IN PLACE AND DRAINING CLEAR YELLOW URINE. COLOSTOMY IN PLACE, NO STOOL OUTPUT AT THIS TIME. BED IN LOW LOCKED POSITION WITH SR UP X2. CALL LIGHT WITHIN REACH. WILL CONTINUE TO MONITOR PT ACCORDINGLY.
--- NOTE | 2019-09-21 07:08 | NUR ---
RN CLOSING NOTE PT AWAKE AND ALERT IN BED ORIENTED X 3 WITH PERIODS OF FORGETFULNESS. IN SEMI CROWE'S POSITION. ON COOL AEROSOL. TRACH MID LINE AND IN PLACE. NO SOB NOTED. NO INDICATIONS OF RESPIRATORY DISTRESS, NO INDICATIONS OF PAIN OR DISCOMFORT. RAMÍREZ CATHETER PATENT AND IN PLACE DRAINING CLEAR YELLOW URINE, NEPHROSTOMY DRAINING CLEAR YELLOW URINE, COLOSTOMY BAD IN PLACE DRAINING SOFT LIGHT BROWN COLORED STOOL, WITH PICC LINE ON CHENCHO PATENT, WITH RIGHT SUBCLAVIAN HD CVC PATENT AND IN PLACE, BED IN LOW POSITION, CALL LIGHT WITHIN REACH, SITTER AT BED SIDE, ENDORSED TO MORNING SHIFT.
[2019-09-21 07:39] LABS: CALCIUM, SERUM 8.1 mg/dL (8.5-10.1); CREATININE 1.5 mg/dL (0.6-1.3); MAGNESIUM 1.5 mg/dL (1.8-2.4); PHOSPHORUS 3.9 mg/dL (2.5-4.9); POTASSIUM 3.4 mmol/L (3.5-5.1)
[2019-09-21 07:44] LABS: BASOPHILS % (AUTO) 0.2 % (0.0-2.0); EOSINOPHILS % (AUTO) 1.4 % (0.0-6.0); HEMATOCRIT 25 % (39-51); HEMOGLOBIN 8.3 g/dL (13.5-17.5); LYMPHOCYTES # (AUTO) 0.7 /CMM (0.8-4.8); LYMPHOCYTES % (AUTO) 10.7 % (20.0-44.0); MEAN CORPUSCULAR HGB CONC 33 g/dl (31.0-36.0); MEAN CORPUSCULAR VOLUME 86 fL (80-96); MONOCYTES # (AUTO) 0.8 /CMM (0.1-1.30); MONOCYTES % (AUTO) 13.3 % (2.0-12.0); NEUTROPHILS # (AUTO) 4.7 /CMM (1.8-8.9); NEUTROPHILS % (AUTO) 74.4 % (43.0-81.0); PLATELET COUNT (AUTO) 245 /CMM (150-450); RED BLOOD CELL COUNT(AUTO) 2.93 MIL/uL (4.5-6.0); WHITE BLOOD COUNT (AUTO) 6.3 K/uL (4.3-11.0)
[2019-09-21] MEDS: BLOOD SUGAR DIAGNOSTIC 1 EACH STRIP IN SCH ×4 (07:44→20:35)
[2019-09-21] MEDS: INSULIN REGULAR, HUMAN 100 UNIT/ML 3 ML VIAL SQ PRN ×3 (07:45→17:21)
[2019-09-21 08:00] VITALS: BP 164/97
[2019-09-21] MEDS: PROSOURCE / PROSTAT (PYXIS) 30 ML UDC GT SCH ×3 (08:30→17:00)
[2019-09-21] MEDS: NITROGLYCERIN PACKET 1 GM PACKET TOP SCH ×2 (08:31→17:04)
[2019-09-21] MEDS: FAMOTIDINE/PF INJ 20 MG/2 ML VIAL IV SCH ×2 (08:31→20:27)
[2019-09-21] MEDS: POTASSIUM CHLORIDE 20 MEQ TAB.PRT.SR PO SCH ×3 (10:15→12:25)
[2019-09-21] MEDS: Magnesium 1GM/D5W 100ML PREMIX 100 ML IV SCH ×2 (10:15→11:19)
--- NOTE | 2019-09-21 12:45 | NUR ---
RN NOTES PT NOTED WITH LOW POTASSIUM 3.4, ADMINISTERED K-DUR 20 MEQ X 3 DOSES. LOW MAGNESIUM 1.5, ADMINISTERED MG 1GM/D5W 100ML IVPB X 2 DOSES. WILL CONTINUE TO MONITOR
[2019-09-21 16:00] VITALS: BP 167/93
--- NOTE | 2019-09-21 17:16 | NUR ---
RN NOTES PATIENT HAD CHEST X-RAY DONE AFTER LUNCH BUT RESULTS STILL PENDING AT THIS TIME.
--- NOTE | 2019-09-21 18:32 | NUR ---
MS RN CLOSING NOTES PT IN BED AWAKE AND WATCHING TV AT THIS TIME. SITTER AT BEDSIDE. A/O X3. ABLE TO MAKE NEEDS KNOWN. PT NOTED WITH PERIOD OF FORGETFULNESS, RE-ORIENTED NEEDED. ON COOL AEROSOL TRACH WITH PMV IN PLACE, TOLERATING WELL WITH NO SOB NOTED. TRIPLE LUMEN PICC LINE ON CHENCHO INTACT, PATENT AND FLUSHES WELL WITH DRESSING C/D/I. RAMÍREZ CATHETER IN PLACE, DRAINING CLEAR YELLOW URINE. NEPHROSTOMY IN PLACE AND DRAINING CLEAR YELLOW URINE. PERMCATH ON RIGHT SUBCLAVIAN AREA IN PLACE WITH DRESSING C/D/I. COLOSTOMY IN PLACE WITH + WATERY TO SOFT LIGHT BROWNISH YELLOWISH STOOL NOTED, COLOSTOMY CARE DONE ALL NEEDS AND CARE ATTENDED WELL. SAFETY MEASURES KEPT IN PLACE. HOB KEPT ELEVATED AT ALL TIMES. BED IN LOW LOCKED POSITION WITH SR UP X2. CALL LIGHT WITHIN REACH. WILL ENDORSE TO CRACKLING PRESS OPERATOR NURSE FOR THOMAS.
--- NOTE | 2019-09-21 19:55 | NUR ---
ICU/ASSISTANT FINANCE MANAGER RECEIVED REPORT FROM DAY NURSE. SEE NURSING FLOWSHEET FOR ASSESSMENT. PT HAS A FEW SKIN ISSUES WHICH ARE ADDRESSED ALONG WITH THE INTERVENTIONS TO EACH OF THIS. PT IS AWAKE AND ALERT WITH PERIODS OF RESTLESS AND FORGETFUL BEHAVIOR. PT IS TOLERATING THE T-PIECE WELL ALONG WITH ONEWAY PURRY-KARY VALVE WITH SATURATION AT 98%. PT RAMÍREZ CATH AND NEPHROSTOMY TUBE AND COLOSTOMY WHICH ARE CLOSELY MONITORING OUTPUT. PT WAS TURNED AND REPOSITIONED FOR COMFORT AND CARE.
[2019-09-21 20:00] VITALS: BP 169/93
--- NOTE | 2019-09-21 20:20 | NUR ---
HARRY/EVENING ANCHOR PT'S BLOOD PRESSURE WAS ELEVATED TO 169/93. PT WAS GIVEN 2100 DOSE OF COREG 12.5 PO. WILL CONTINUE TO MONITOR THIS PT'S BLOOD PRESSURE CLOSELY.
[2019-09-21] MEDS: CARVEDILOL 12.5 MG TABLET PO SCH (20:23)
--- NOTE | 2019-09-21 22:20 | NUR ---
HARRY/OVERHEAD DOOR TECHNICIAN PT'S BLOOD SUGAR IS 84, NO COVERAGE FOR THIS WILL CONTINUE TO MONITOR THIS PER MD'S ORDERS AND HOSPITAL PROTOCOL. PT TURNS SELF WITH SOME ASST. WITH TURNING AND REPOSITIONING.
[2019-09-22] VITALS: BP 132/74
--- NOTE | 2019-09-22 00:41 | NUR ---
HARRY/MANAGER OF SUPPLY CHAIN 0015-RT CAME AND SUCTIONED THE PT, PT TOLERATED THIS WELL, REMAINS CONFUSED. PT'S BLOOD PRESSURE WAS RECHECKED, 132/74. WILL CONTINUE TO MONITOR THIS PT'S BLOOD PRESSURE. PT WAS CLEANED WAS AND REPOSITIONED.
[2019-09-22] MEDS: METOCLOPRAMIDE HCL 10 MG/2 ML VIAL IV SCH ×4 (01:20→21:00)
[2019-09-22] MEDS: LORAZEPAM INJ 2 MG/ML VIAL IV PRN ×2 (03:06→21:00)
[2019-09-22 04:00] VITALS: BP 146/87
--- NOTE | 2019-09-22 07:00 | NUR ---
MS MANN CLOSING NOTES PT IN BED AWAKE AND WATCHING TV AT THIS TIME. SITTER AT BEDSIDE. A/O X3. . . ON COOL AEROSOL TRACH WITH PMV IN PLACE, TOLERATING WELL WITH NO SOB NOTED. TRIPLE LUMEN PICC LINE ON CHENCHO INTACT, PATENT AND FLUSHES WELL WITH DRESSING C/D/I. RAMÍREZ CATHETER IN PLACE, DRAINING CLEAR YELLOW URINE. NEPHROSTOMY IN PLACE AND DRAINING CLEAR YELLOW URINE. PERMCATH ON RIGHT SUBCLAVIAN AREA IN PLACE WITH DRESSING C/D/I. COLOSTOMY IN PLACE WITH + WATERY TO SOFT LIGHT BROWNISH YELLOWISH STOOL NOTED, COLOSTOMY CARE DONE ALL NEEDS AND CARE ATTENDED WELL. SAFETY MEASURES KEPT IN PLACE. HOB KEPT ELEVATED AT ALL TIMES. BED IN LOW LOCKED POSITION WITH SR UP X2. CALL LIGHT WITHIN REACH. ALL SAFETY MEASURE IMPLEMENTED PER HOSPITAL POLICY Addendum: 09/22/19 at 1948 by KARLOS CHADWICK RN MS MANN OPENING NOTES PT IN BED AWAKE AND WATCHING TV AT THIS TIME. SITTER AT BEDSIDE. A/O X3. . . ON COOL AEROSOL TRACH WITH PMV IN PLACE, TOLERATING WELL WITH NO SOB NOTED. TRIPLE LUMEN PICC LINE ON CHENCHO INTACT, PATENT AND FLUSHES WELL WITH DRESSING C/D/I. RAMÍREZ CATHETER IN PLACE, DRAINING CLEAR YELLOW URINE. NEPHROSTOMY IN PLACE AND DRAINING CLEAR YELLOW URINE. PERMCATH ON RIGHT SUBCLAVIAN AREA IN PLACE WITH DRESSING C/D/I. COLOSTOMY IN PLACE WITH + WATERY TO SOFT LIGHT BROWNISH YELLOWISH STOOL NOTED, COLOSTOMY CARE DONE ALL NEEDS AND CARE ATTENDED WELL. SAFETY MEASURES KEPT IN PLACE. HOB KEPT ELEVATED AT ALL TIMES. BED IN LOW LOCKED POSITION WITH SR UP X2. CALL LIGHT WITHIN REACH. ALL SAFETY MEASURE IMPLEMENTED PER HOSPITAL POLICY
[2019-09-22 07:15] LABS: CALCIUM, SERUM 8.5 mg/dL (8.5-10.1); CREATININE 1.5 mg/dL (0.6-1.3); MAGNESIUM 1.7 mg/dL (1.8-2.4); PHOSPHORUS 4.2 mg/dL (2.5-4.9); POTASSIUM 3.7 mmol/L (3.5-5.1)
[2019-09-22 07:18] LABS: BASOPHILS % (AUTO) 0.3 % (0.0-2.0); EOSINOPHILS % (AUTO) 1.6 % (0.0-6.0); HEMATOCRIT 24 % (39-51); HEMOGLOBIN 8.2 g/dL (13.5-17.5); LYMPHOCYTES # (AUTO) 0.9 /CMM (0.8-4.8); LYMPHOCYTES % (AUTO) 14.8 % (20.0-44.0); MEAN CORPUSCULAR HGB CONC 34 g/dl (31.0-36.0); MEAN CORPUSCULAR VOLUME 84 fL (80-96); MONOCYTES # (AUTO) 0.8 /CMM (0.1-1.30); MONOCYTES % (AUTO) 13.6 % (2.0-12.0); NEUTROPHILS % (AUTO) 69.7 % (43.0-81.0); PLATELET COUNT (AUTO) 246 /CMM (150-450); RED BLOOD CELL COUNT(AUTO) 2.88 MIL/uL (4.5-6.0); WHITE BLOOD COUNT (AUTO) 5.8 K/uL (4.3-11.0)
[2019-09-22] MEDS: PROSOURCE / PROSTAT (PYXIS) 30 ML UDC GT SCH ×2 (09:00→12:44)
[2019-09-22] MEDS: BLOOD SUGAR DIAGNOSTIC 1 EACH STRIP IN SCH ×4 (09:16→21:25)
[2019-09-22] MEDS: CARVEDILOL 12.5 MG TABLET PO SCH ×2 (09:21→21:01)
[2019-09-22] MEDS: FAMOTIDINE/PF INJ 20 MG/2 ML VIAL IV SCH ×2 (09:21→21:00)
[2019-09-22] MEDS: NITROGLYCERIN PACKET 1 GM PACKET TOP SCH ×2 (09:21→18:50)
[2019-09-22] MEDS: INSULIN REGULAR, HUMAN 100 UNIT/ML 3 ML VIAL SQ PRN (09:44)
[2019-09-22 12:00] VITALS: BP 160/92
[2019-09-22] MEDS ORDERED: ENSURE ENLIVE CHOC 237 ML CAN PO SCH (13:30)
[2019-09-22] MEDS: ENSURE CLEAR 237 ML LIQUID (MIX BERRY) PO SCH ×2 (17:00→17:43)
--- NOTE | 2019-09-22 19:30 | NUR ---
MS RN CLOSING NOTES PT IN BED AWAKE AND WATCHING TV AT THIS TIME. SITTER AT BEDSIDE. A/O X3. . . ON COOL AEROSOL TRACH WITH PMV IN PLACE, TOLERATING WELL WITH NO SOB NOTED. TRIPLE LUMEN PICC LINE ON CHENCHO INTACT, PATENT AND FLUSHES WELL WITH DRESSING C/D/I. RAMÍREZ CATHETER IN PLACE, DRAINING CLEAR YELLOW URINE. NEPHROSTOMY IN PLACE AND DRAINING CLEAR YELLOW URINE. PERMCATH ON RIGHT SUBCLAVIAN AREA IN PLACE WITH DRESSING C/D/I. COLOSTOMY IN PLACE WITH + WATERY TO SOFT LIGHT BROWNISH YELLOWISH STOOL NOTED, COLOSTOMY CARE DONE ALL NEEDS AND CARE ATTENDED WELL. SAFETY MEASURES KEPT IN PLACE. HOB KEPT ELEVATED AT ALL TIMES. BED IN LOW LOCKED POSITION WITH SR UP X2. CALL LIGHT WITHIN REACH. ALL SAFETY MEASURE IMPLEMENTED PER HOSPITAL POLICY
[2019-09-22 20:00] VITALS: BP 137/71
[2019-09-23] MEDS: diphenhydrAMINE HCL 50 MG/ML VIAL IV PRN (00:05)
[2019-09-23] MEDS: METOCLOPRAMIDE HCL 10 MG/2 ML VIAL IV SCH ×4 (00:33→20:13)
[2019-09-23 04:07] VITALS: BP 150/71
[2019-09-23] MEDS: ENSURE CLEAR 237 ML LIQUID (MIX BERRY) PO SCH ×2 (08:00→16:27)
--- NOTE | 2019-09-23 08:00 | NUR ---
MS RN NOTE RECEIVED PATIENT IN BED , ALERT , ORIENTED X4 WITH TRACH TO COOLER AEROSOL, SAT 98% , WITH RAMÍREZ CATH TO GRAVITY WIT YELLOW COLOR URINE, WITH COLOSTOMY YELLOW LIQUID STOOL NOTED , RT UPPER ARM PICC LINE IN PLACE, FLUSHED WELL , ALON DILL RN ASSOCIATE BUSINESS ANALYST AT BEDSIDE NOTIFIED THAT PATIENT C\O OF GAS PRESSURE IN STOMACH , STATED THAT WILL CHECK IT OUT ,BED IN LOWEST AND LOCKED POSITION , PLAN OF CARE DISCUSSED WITH PATIENT , WILL CONT TO MONITOR
[2019-09-23] MEDS: FAMOTIDINE/PF INJ 20 MG/2 ML VIAL IV SCH ×2 (08:13→20:13)
[2019-09-23] MEDS: NITROGLYCERIN PACKET 1 GM PACKET TOP SCH ×2 (08:13→16:29)
[2019-09-23] MEDS: CARVEDILOL 12.5 MG TABLET PO SCH ×2 (08:14→20:13)
[2019-09-23] MEDS: BLOOD SUGAR DIAGNOSTIC 1 EACH STRIP IN SCH ×4 (08:28→22:30)
[2019-09-23 09:18] LABS: BASOPHILS % (AUTO) 0.3 % (0.0-2.0); EOSINOPHILS % (AUTO) 1.2 % (0.0-6.0); HEMATOCRIT 25 % (39-51); HEMOGLOBIN 8.4 g/dL (13.5-17.5); LYMPHOCYTES # (AUTO) 0.7 /CMM (0.8-4.8); LYMPHOCYTES % (AUTO) 10.3 % (20.0-44.0); MEAN CORPUSCULAR HGB CONC 34 g/dl (31.0-36.0); MEAN CORPUSCULAR VOLUME 84 fL (80-96); MONOCYTES # (AUTO) 0.7 /CMM (0.1-1.30); MONOCYTES % (AUTO) 11.2 % (2.0-12.0); PLATELET COUNT (AUTO) 248 /CMM (150-450); RED BLOOD CELL COUNT(AUTO) 2.97 MIL/uL (4.5-6.0); WHITE BLOOD COUNT (AUTO) 6.5 K/uL (4.3-11.0)
[2019-09-23 09:24] LABS: CALCIUM, SERUM 8.2 mg/dL (8.5-10.1); CREATININE 1.8 mg/dL (0.6-1.3); POTASSIUM 3.7 mmol/L (3.5-5.1)
[2019-09-23] MEDS: SIMETHICONE 80 MG TAB.CHEW PO PRN (10:05)
--- NOTE | 2019-09-23 10:10 | NUR ---
MS RN NOTE MYLICON FOR GAS GIVEN ORDERED WILL,F\U
--- NOTE | 2019-09-23 11:20 | NUR ---
MS RN NOTE TRACH SUCTION DONE
--- NOTE | 2019-09-23 11:41 | NUR ---
ms taveras note ambulated with pt using a walker Addendum: 09/23/19 at 1142 by MANAS BRITT RN up on chair
--- NOTE | 2019-09-23 14:09 | NUR ---
ms rn note colostomy bag changed. keep clean dry daughter at bedside
[2019-09-23 16:00] VITALS: BP 143/86
[2019-09-23] MEDS ORDERED: LIDOCAINE 1% INJ 50 ML MDV IJ ONE (17:00)
--- NOTE | 2019-09-23 17:35 | NUR ---
telecommunications manager note dr josue at bedside hd cath removed, pressure dressing applied, will monitor
--- NOTE | 2019-09-23 19:00 | NUR ---
MS RN NOTE ALL NEEDS ATTENDED, NO BLEEDING NOTED S\P HD CATH REMOVED WILL MONITOR
--- NOTE | 2019-09-23 19:30 | NUR ---
RN OPEN NOTES RECEIVED PATIENT AWAKE IN BED WITH SITTER AT BEDSIDE. A/OX3. NO SIGNS OF DISTRESS OR DISCOMFORT BREATHING EVEN AND UNLABORED. HAS T-PIECE TO COOL AEROSOL, TOLERATING WELL. HAS CHENCHO PICC, PATENT AND INTACT, NO SIGNS OF REDNESS OR INFILTRATION. HAS F/C INTACT, DRAINING CLEAR YELLOW FLUID. LEFT NEPHROSTOMY INTACT, DRAINING CLEAR YELLOW FLUID. HAS L ABD COLOSTOMY, INTACT. DRESSING ON RCW C/D/I. BED IN LOW LOCKED POSITION WITH SIDE RAILS X2. CALL LIGHT WITHIN REACH. WILL CONTINUE TO MONITOR.
--- NOTE | 2019-09-23 19:30 | NUR ---
RT NOTE PT RECEIVED AWAKE/ALERT ON COOL AEROSOL @ 28% WITH PMV IN PLACE. SX DONE, TRACH SECURED AND PATENT. SMALL THICK WHITE YELLOW SECRETIONS NOTED. NO SOB NOTED AT THIS TIME. WATER CHANGED. WILL MONITOR. Addendum: 09/24/19 at 0026 by JOZEF IQBAL RT Amended: Links added.
[2019-09-23 20:00] VITALS: BP 143/79
[2019-09-24] MEDS: METOCLOPRAMIDE HCL 10 MG/2 ML VIAL IV SCH ×4 (01:21→20:37)
[2019-09-24 04:00] VITALS: BP 148/77
[2019-09-24] MEDS: BLOOD SUGAR DIAGNOSTIC 1 EACH STRIP IN SCH ×4 (06:32→21:51)
--- NOTE | 2019-09-24 07:00 | NUR ---
RN INITIAL NOTE PATIENT IN BED, AWAKE AND ALERT. SITTER AT BEDSIDE. NO COMPLAINS OF ANY PAIN NOR SOB. BED LOCKED AND IN LOWEST POSITION. CALL LIGHT WITHIN REACH, WILL CONTINUE TO MONITOR
--- NOTE | 2019-09-24 07:20 | NUR ---
RN CLOSING NOTES PATIENT AWAKE IN BED WITH SITTER AT BEDSIDE. A/OX3. NO SIGNS OF DISTRESS OR DISCOMFORT BREATHING EVEN AND UNLABORED. HAS T-PIECE TO COOL AEROSOL, TOLERATING WELL. HAS CHENCHO PICC, PATENT AND INTACT, NO SIGNS OF REDNESS OR INFILTRATION. HAS F/C INTACT, DRAINING CLEAR YELLOW FLUID. LEFT NEPHROSTOMY INTACT, DRAINING CLEAR YELLOW FLUID. HAS L ABD COLOSTOMY, INTACT. DRESSING ON RCW C/D/I. ALL NEEDS MET. NO SIGNIFICANT CHANGES THROUGH THE NIGHT. BED IN LOW LOCKED POSITION WITH SIDE RAILS X2. CALL LIGHT WITHIN REACH. ENDORSED TO AM SHIFT FOR THOMAS.
[2019-09-24 08:00] LABS: BASOPHILS % (AUTO) 0.5 % (0.0-2.0); HEMATOCRIT 25 % (39-51); HEMOGLOBIN 8.1 g/dL (13.5-17.5); LYMPHOCYTES # (AUTO) 0.6 /CMM (0.8-4.8); LYMPHOCYTES % (AUTO) 12.2 % (20.0-44.0); MEAN CORPUSCULAR HGB CONC 33 g/dl (31.0-36.0); MEAN CORPUSCULAR VOLUME 84 fL (80-96); MONOCYTES # (AUTO) 0.8 /CMM (0.1-1.30); MONOCYTES % (AUTO) 14.5 % (2.0-12.0); NEUTROPHILS # (AUTO) 3.8 /CMM (1.8-8.9); NEUTROPHILS % (AUTO) 71.8 % (43.0-81.0); PLATELET COUNT (AUTO) 263 /CMM (150-450); RED BLOOD CELL COUNT(AUTO) 2.94 MIL/uL (4.5-6.0); WHITE BLOOD COUNT (AUTO) 5.3 K/uL (4.3-11.0)
[2019-09-24] MEDS: ENSURE CLEAR 237 ML LIQUID (MIX BERRY) PO SCH ×2 (08:00→17:00)
[2019-09-24 08:02] LABS: CALCIUM, SERUM 8.3 mg/dL (8.5-10.1); CREATININE 1.6 mg/dL (0.6-1.3); POTASSIUM 3.7 mmol/L (3.5-5.1)
[2019-09-24] MEDS: FAMOTIDINE/PF INJ 20 MG/2 ML VIAL IV SCH ×2 (08:25→20:37)
[2019-09-24] MEDS: CARVEDILOL 12.5 MG TABLET PO SCH ×2 (08:39→20:37)
[2019-09-24] MEDS: NITROGLYCERIN PACKET 1 GM PACKET TOP SCH ×2 (08:39→17:01)
[2019-09-24] MEDS: SIMETHICONE 80 MG TAB.CHEW PO PRN (08:43)
--- NOTE | 2019-09-24 09:35 | NUR ---
RT PER DR PEREZ, PT PLACED ON TRACH CAP. WILL CONTINUE TO MONITOR T/O SHIFT.
[2019-09-24 16:00] VITALS: BP 118/72
--- NOTE | 2019-09-24 17:00 | NUR ---
RT PT TOLERATING CAP T/O SHIFT. PT ON 2LNC ON CONTINUOUS PULSE OX. NO SOB OR RESP DISTRESS NOTED T/O SHIFT. WILL ENDORSE TO WORKERS COMPENSATION CLAIMS ASSISTANT.
--- NOTE | 2019-09-24 18:50 | NUR ---
RN CLOSING NOTE PATIENT IN BED, AWAKE AND ALERT. NO COMPLAINS OF ANY PAIN NOR SOB AT THIS TIME. PATIENT WAS DISCONNECTED TO T-PIECE AND CAPPED BY RT. PATIENT CURRENTLY ON 2L NC SATING WELL AT 99%. ALL NEEDS MET. ALL MEDS GIVEN. WILL ENDORSE TO NOC SHIFT FOR THOMAS
[2019-09-24 20:00] VITALS: BP 166/84
--- NOTE | 2019-09-24 20:00 | NUR ---
MS RN NOTES RECEIVED PATIENT AWAKE IN BED WITH NO DISTRESS NOTED. CALL LIGHT WITHIN REACH. FAMILY AT BEDSIDE. NO C/O PAIN OR DISCOMFORT. PICC LINE INTACT AND PATENT. NEPHROSTOMY INTACT AND PATENT. FC INTACT AND PATENT. COLOSTOMY IN PLACE WITH NO LEAKING NOTED. ENCOURAGED USE OF CALL LIGHT FOR ASSISTANCE AND VERBALIZED GOOD UNDERSTANDING. BED IN LOW LOCK SETTING WITH BED ALARM ON AND FUNCTIONING PROPERLY. ROOM FREE OF CLUTTER AND BELONGINGS KEPT NEAR BEDSIDE. WILL CONTINUE TO MONITOR.
[2019-09-24] MEDS: LORAZEPAM INJ 2 MG/ML VIAL IV PRN (20:45)
[2019-09-25] VITALS: BP_SYST 108; BP_SYST 133; BP_DIAS 59; BP_DIAS 79
[2019-09-25] MEDS: METOCLOPRAMIDE HCL 10 MG/2 ML VIAL IV SCH ×4 (01:36→18:42)
[2019-09-25 04:00] VITALS: BP 136/71
--- NOTE | 2019-09-25 06:29 | NUR ---
MS RN NOTES PATIENT ASLEEP IN BED WITH NO DISTRESS NOTED. CALL LIGHT WITHIN REACH. ALL DUE MEDS GIVEN ORDERED WITH NO ASE NOTED. PICC LINE INTACT AND PATENT. FC INTACT AND PATENT AND DRAINING CLEAR YELLOW URINE. NEPHROSTOMY INTACT PATENT AND DRAINING CLEAR YELLOW URINE. COLOSTOMY BAG INTACT WITH NO LEAKING NOTED. BED IN LOW LOCK SETTING WITH BED ALARM ON AND FUNCTIONING PROPERLY. ROOM FREE OF CLUTTER AND BELONGINGS KEPT NEAR BEDSIDE. WILL ENDORSE TO ONCOMING SHIFT.
[2019-09-25 07:12] LABS: BASOPHILS % (AUTO) 0.3 % (0.0-2.0); EOSINOPHILS % (AUTO) 1.1 % (0.0-6.0); HEMATOCRIT 25 % (39-51); HEMOGLOBIN 8.4 g/dL (13.5-17.5); LYMPHOCYTES # (AUTO) 0.7 /CMM (0.8-4.8); LYMPHOCYTES % (AUTO) 11.5 % (20.0-44.0); MEAN CORPUSCULAR HGB CONC 34 g/dl (31.0-36.0); MEAN CORPUSCULAR VOLUME 84 fL (80-96); MONOCYTES # (AUTO) 0.8 /CMM (0.1-1.30); MONOCYTES % (AUTO) 14.1 % (2.0-12.0); NEUTROPHILS # (AUTO) 4.1 /CMM (1.8-8.9); PLATELET COUNT (AUTO) 266 /CMM (150-450); RED BLOOD CELL COUNT(AUTO) 2.93 MIL/uL (4.5-6.0); WHITE BLOOD COUNT (AUTO) 5.7 K/uL (4.3-11.0)
[2019-09-25 07:14] LABS: CALCIUM, SERUM 8.3 mg/dL (8.5-10.1); CREATININE 1.5 mg/dL (0.6-1.3); POTASSIUM 3.5 mmol/L (3.5-5.1)
[2019-09-25 08:00] VITALS: BP 155/94
--- NOTE | 2019-09-25 08:50 | NUR ---
RT PER DR PEREZ, DECCANULATE PT. PLACED STERILE GAUZE OVER STOMA. PT ON 2L NC. PT ON CONTINUOUS PULSE OX. WILL CONTINUE TO MONITOR T/O SHIFT. NOP SOB OR RESP DISTRESS NOTED.
[2019-09-25] MEDS: FAMOTIDINE/PF INJ 20 MG/2 ML VIAL IV SCH (09:24)
[2019-09-25] MEDS: BLOOD SUGAR DIAGNOSTIC 1 EACH STRIP IN SCH ×4 (09:24→22:26)
[2019-09-25] MEDS: NITROGLYCERIN PACKET 1 GM PACKET TOP SCH ×2 (09:25→17:40)
[2019-09-25] MEDS: CARVEDILOL 12.5 MG TABLET PO SCH ×2 (09:25→21:42)
[2019-09-25] MEDS: ENSURE CLEAR 237 ML LIQUID (MIX BERRY) PO SCH ×2 (13:33→17:40)
[2019-09-25] MEDS ORDERED: SILVER NITRATE APPLICATOR 1 EA BOX TP STA (15:29)
[2019-09-25 16:00] VITALS: BP 131/75
--- NOTE | 2019-09-25 19:43 | NUR ---
RN OPENING NOTES, RECEIVED PATIENT AWAKE IN BED WITH SITTER AT BEDSIDE. A/OX3. NO SIGNS OF DISTRESS OR DISCOMFORT BREATHING EVEN AND UNLABORED. PATIENT IS ON DIAPER, HAS CHENCHO PICC, PATENT AND INTACT, NO SIGNS OF REDNESS OR INFILTRATION. LEFT NEPHROSTOMY INTACT, DRAINING CLEAR YELLOW FLUID. HAS L ABD COLOSTOMY, INTACT NO LEAKAGE NOTED. DRESSING ON RCW C/D/I. BED IN LOW LOCKED POSITION WITH SIDE RAILS X2. CALL LIGHT WITHIN REACH. WILL CONTINUE TO MONITOR.
[2019-09-25 20:00] VITALS: BP 130/78
[2019-09-25] MEDS: LORAZEPAM INJ 2 MG/ML VIAL IV PRN (21:43)
[2019-09-26] MEDS: METOCLOPRAMIDE HCL 10 MG/2 ML VIAL IV SCH ×4 (02:24→18:32)
[2019-09-26 04:00] VITALS: BP 110/66
[2019-09-26 06:43] LABS: BASOPHILS % (AUTO) 0.4 % (0.0-2.0); EOSINOPHILS % (AUTO) 1.1 % (0.0-6.0); HEMATOCRIT 23 % (39-51); LYMPHOCYTES # (AUTO) 0.8 /CMM (0.8-4.8); LYMPHOCYTES % (AUTO) 13.7 % (20.0-44.0); MEAN CORPUSCULAR HGB CONC 35 g/dl (31.0-36.0); MEAN CORPUSCULAR VOLUME 83 fL (80-96); MONOCYTES # (AUTO) 0.8 /CMM (0.1-1.30); MONOCYTES % (AUTO) 14.9 % (2.0-12.0); NEUTROPHILS # (AUTO) 3.9 /CMM (1.8-8.9); NEUTROPHILS % (AUTO) 69.9 % (43.0-81.0); PLATELET COUNT (AUTO) 276 /CMM (150-450); WHITE BLOOD COUNT (AUTO) 5.5 K/uL (4.3-11.0)
--- NOTE | 2019-09-26 07:00 | NUR ---
RN MS NOTES OPENING PATIENT AWAKE AND RESTING COMFORABLELY IN BED. PATIENT IS ON 2L AN SATURATING WELL . PATIENT A/O X4 PATIENT HAS ABDOMEN SCARING, NEPHROSTOMY , COLOSTOMY BAG INTACT AND DRY. PATIENT HAS DIAPER WITH URINE AT BEDSIDE. PATIENT HAS CHENCHO PICC SL. BED LOCKED AND LOWEST POSITION CALL LIGHT WITH IN REACH. ALL SAFETYMEASURE IMPLEMENTED PER HOSPITAL POLICY.
[2019-09-26 07:07] LABS: CALCIUM, SERUM 8.4 mg/dL (8.5-10.1); CREATININE 1.5 mg/dL (0.6-1.3); POTASSIUM 3.7 mmol/L (3.5-5.1)
--- NOTE | 2019-09-26 07:15 | NUR ---
RN CLOSING NOTES, PATIENT AWAKE IN BED RESTING, A/OX3. NO SIGNS OF DISTRESS OR DISCOMFORT. BREATHING EVEN AND UNLABORED. PATIENT IS ON DIAPER, AND USES URINAL TOO. HAS CHENCHO PICC, PATENT AND INTACT, NO SIGNS OF REDNESS OR INFILTRATION. LEFT NEPHROSTOMY INTACT, DRAINING CLEAR YELLOW FLUID. HAS L ABD COLOSTOMY, INTACT NO LEAKAGE NOTED. DRESSING ON RCW C/D/I. BED IN LOW LOCKED POSITION WITH SIDE RAILS X2. CALL LIGHT WITHIN REACH. WILL ENDORSE THE PATIENT TO AM RN FOR THOMAS.
[2019-09-26 08:00] VITALS: BP_SYST 127; BP_SYST 157; BP_DIAS 57
[2019-09-26] MEDS ORDERED: PANTOPRAZOLE 40 MG/PACK PACK NG SCH (09:00)
[2019-09-26] MEDS: CARVEDILOL 12.5 MG TABLET PO SCH (09:49)
[2019-09-26] MEDS: BLOOD SUGAR DIAGNOSTIC 1 EACH STRIP IN SCH ×3 (09:50→18:32)
[2019-09-26] MEDS: NITROGLYCERIN PACKET 1 GM PACKET TOP SCH ×2 (09:50→18:32)
--- NOTE | 2019-09-26 10:02 | NUR ---
RN MS NOTES - BS PATIENT BS 173 . PATIENT REFUSED INSULIN . EXPLAIN RISK AND BENIFITS 3X TIMES. PATIENT STILL DENIED AND WOULD LIKE TO WAIT TILL LATER.
[2019-09-26] MEDS ORDERED: SIME80TA15 PO (12:10)
[2019-09-26] MEDS ORDERED: NITR1OIN2 TOP (12:10)
[2019-09-26] MEDS ORDERED: CARV12.52 PO (12:10)
--- NOTE | 2019-09-26 15:14 | NUR ---
RN MS NOTES - DISCHARGE CONFIRMATION CALLED DAUGHTER ABOUT DISCHARGE 1700. TOLD DAUGHTER [facility] DAUGHTER IS AWARE OF DISCHARGE
--- NOTE | 2019-09-26 15:47 | NUR ---
RN MS NOTES - [facility] CHARGE REPORT GAVE REPORT TO AM CHARGE NURSE AT ARU. AWARE FOR INCOMING AT 1700
[2019-09-26 16:00] VITALS: BP 120/65
[2019-09-26 18:00] VITALS: BP 120/65
[2019-09-26 18:32] VITALS: BP 120/65
--- NOTE | 2019-09-26 18:38 | NUR ---
RN MS NOTES BS 136 - PATIENT REFUSED COVERAGE
--- NOTE | 2019-09-26 18:44 | NUR ---
RN MS NOTES PATIENT IS AWAKE IN BED WITH FRIEND AT BEDSIDE. PATIENT A/O X4 PATIENT IS IN ROOM AIR . SATURATING WELL. NO SOB,NO PAIN. NOACUTE RESPIRATORY DISTRESS. BED LOCKED AND LOWEST POSITION CALL LIGHT WITH IN REACH. ALL SAFETY MEASURE IMPLEMENTED PER HOSPITAL POLICY.
--- NOTE | 2019-09-26 19:15 | NUR ---
RN OPENING NOTES: BEDSIDE REPORT RECEIVED FROM AM SHIFT NURSE. PATIENT IN BED, AWAKE, AND VERBALLY RESPONSIVE. FAMILY AT BEDSIDE. AAOX4. NO RESPIRATORY DISTRESS. NO PAIN. SAFETY PRECAUTIONS IMPLEMENTED. BED LOCKED, ALARM ON, AND IN LOWEST POSITION. HOB ELEVATED. UPON ENDORSEMENT, PATIENT TO BE DISCHARGED AT 1999. PATIENT IN STABLE CONDITION. CHENCHO PICC LINE REMOVED BY AM SHIFT NURSE. CALL LIGHT PLACED WITHIN REACH. WILL CONT. TO MONITOR.
--- NOTE | 2019-09-26 20:40 | NUR ---
RN NOTE: AT 2009, EMT ARRIVED TO GRAIN ELEVATOR CLERK PATIENT. PATIENT IS BEING DISCHARGED TO [facility]. AM SHIFT NURSE GAVE REPORT TO AM CHARGE NURSE. INVENTORY LIST SIGNED AND ALL PERSONAL BELONGINGS TAKEN BY FAMILY. WOUND PHOTOS PLACED IN CHART. PATIENT IN STABLE CONDITION. NO DISTRESS NOTED. VITAL SIGNS TAKEN. BP 118/73, HR 97, RR 18, O2 SAT 97%, TEMP 98.3F. PATIENT LEFT VIA GURNEY SAFELY.
== END 2019-09-26 21:26 | DRG 3 ==
LOC: ER 17:18 → MEDSG1 20:29 → ICU 08-17 12:46 → TELE-TD 09-13 22:53 → TELE1 09-15 12:23 → MEDSG1 09-18 13:35
PROVIDERS: ADMIT Hospitalist; ATTEND Nurse Practitioner Acute Care
PROC: 0BH17EZ Insertion of Endotracheal Airway into Trachea, Via Natural or Artificial Opening (ICD-10-PCS; principal; 2019-08-17)
PROC: 0TJB8ZZ Inspection of Bladder, Via Natural or Artificial Opening Endoscopic (ICD-10-PCS; principal; 2019-08-17)
PROC: 5A1955Z Respiratory Ventilation, Greater than 96 Consecutive Hours (ICD-10-PCS; principal; 2019-08-17)
PROC: B548ZZA Ultrasonography of Superior Vena Cava, Guidance (ICD-10-PCS; principal; 2019-08-17)
PROC: 02HV33Z Insertion of Infusion Device into Superior Vena Cava, Percutaneous Approach (ICD-10-PCS; principal; 2019-08-17)
PROC: 0T143JD Bypass Left Kidney Pelvis to Cutaneous with Synthetic Substitute, Percutaneous Approach (ICD-10-PCS; 2019-08-18)
PROC: 06HY33Z Insertion of Infusion Device into Lower Vein, Percutaneous Approach (ICD-10-PCS; 2019-08-18)
PROC: 0W9G3ZZ Drainage of Peritoneal Cavity, Percutaneous Approach (ICD-10-PCS; 2019-08-19)
PROC: 5A1D70Z Performance of Urinary Filtration, Intermittent, Less than 6 Hours Per Day (ICD-10-PCS; 2019-08-20)
PROC: 0D1N0Z4 Bypass Sigmoid Colon to Cutaneous, Open Approach (ICD-10-PCS; 2019-08-22)
PROC: 0DBP0ZZ Excision of Rectum, Open Approach (ICD-10-PCS; 2019-08-22)
PROC: 0DTN0ZZ Resection of Sigmoid Colon, Open Approach (ICD-10-PCS; 2019-08-22)
PROC: 30233N1 Transfusion of Nonautologous Red Blood Cells into Peripheral Vein, Percutaneous Approach (ICD-10-PCS; 2019-08-24)
PROC: 30233K1 Transfusion of Nonautologous Frozen Plasma into Peripheral Vein, Percutaneous Approach (ICD-10-PCS; 2019-08-24)
PROC: 0W9G3ZZ Drainage of Peritoneal Cavity, Percutaneous Approach (ICD-10-PCS; 2019-08-29)
PROC: 0B110F4 Bypass Trachea to Cutaneous with Tracheostomy Device, Open Approach (ICD-10-PCS; 2019-08-30)
PROC: 0W993ZZ Drainage of Right Pleural Cavity, Percutaneous Approach (ICD-10-PCS; 2019-09-05)
PROC: B518YZA Fluoroscopy of Superior Vena Cava using Other Contrast, Guidance (ICD-10-PCS; 2019-09-06)
PROC: 02HV33Z Insertion of Infusion Device into Superior Vena Cava, Percutaneous Approach (ICD-10-PCS; 2019-09-06)
PROC: 0JH63XZ Insertion of Tunneled Vascular Access Device into Chest Subcutaneous Tissue and Fascia, Percutaneous Approach (ICD-10-PCS; 2019-09-06)
PROC: 0JB80ZZ Excision of Abdomen Subcutaneous Tissue and Fascia, Open Approach (ICD-10-PCS; 2019-09-06)
PROC: 0W993ZZ Drainage of Right Pleural Cavity, Percutaneous Approach (ICD-10-PCS; 2019-09-19)
PROC: 05PYX3Z Removal of Infusion Device from Upper Vein, External Approach (ICD-10-PCS; 2019-09-23)
DX: A41.9 Sepsis, unspecified organism (principal); R65.21 Severe sepsis with septic shock; J96.01 Acute respiratory failure with hypoxia; J96.02 Acute respiratory failure with hypercapnia; I21.A1 Myocardial infarction type 2; K65.9 Peritonitis, unspecified; K65.1 Peritoneal abscess; G92 Toxic encephalopathy; J18.9 Pneumonia, unspecified organism; N17.0 Acute kidney failure with tubular necrosis; E87.0 Hyperosmolality and hypernatremia; K92.2 Gastrointestinal hemorrhage, unspecified; E87.2 Acidosis; A09 Infectious gastroenteritis and colitis, unspecified; K57.20 Diverticulitis of large intestine with perforation and abscess without bleeding; E87.3 Alkalosis; J90 Pleural effusion, not elsewhere classified; J94.2 Hemothorax; J98.11 Atelectasis; I96 Gangrene, not elsewhere classified; N13.6 Pyonephrosis; K94.09 Other complications of colostomy; E87.6 Hypokalemia; Z87.442 Personal history of urinary calculi; R73.9 Hyperglycemia, unspecified; E86.0 Dehydration; K40.20 Bilateral inguinal hernia, without obstruction or gangrene, not specified as recurrent; R74.0 Nonspecific elevation of levels of transaminase and lactic acid dehydrogenase [LDH]; E88.09 Other disorders of plasma-protein metabolism, not elsewhere classified; D69.6 Thrombocytopenia, unspecified; E83.51 Hypocalcemia; Z53.31 Laparoscopic surgical procedure converted to open procedure; E83.39 Other disorders of phosphorus metabolism; Y83.8 Other surgical procedures as the cause of abnormal reaction of the patient, or of later complication, without mention of misadventure at the time of the procedure; Y73.8 Miscellaneous gastroenterology and urology devices associated with adverse incidents, not elsewhere classified; Y92.230 Patient room in hospital as the place of occurrence of the external cause; E87.70 Fluid overload, unspecified; D64.9 Anemia, unspecified; K76.89 Other specified diseases of liver
CPT/HCPCS: 31720; 36415; 36569; 36600; 71045-TC; 71250-TC; 71260-TC; 74018; 74150-TC; 74250-TC; 75989; 75989-TC; 76700-TC; 76705-TC; 76770-TC; 76942-TC; 80048-TC; 80053-TC; 80061-TC; 80076-TC; 80150; 80170-TC; 80202-TC; 81000-TC; 82040-TC; 82150-TC; 82247-TC; 82248-TC; 82271; 82272-TC; 82330; 82533; 82550-TC; 82565-TC; 82570-TC; 82803-TC; 82962-TC; 83010; 83540-TC; 83605-TC; 83615-TC; 83690-TC; 83735-TC; 83970; 84100-TC; 84155-TC; 84300-TC; 84478-TC; 84484-TC; 84520-TC; 84550-TC; 85025-TC; 85027-TC; 85385-TC; 85396; 85610-TC; 85730-TC; 86704; 86706; 86850-TC; 86921-TC; 87040-TC; 87070-TC; 87075-TC; 87081-TC; 87086-TC; 87102-TC; 87340; 88112-TC; 88305-TC; 88307-TC; 88312-TC; 89051-TC; 90935-TC; 92526; 92611-TC; 93307-TC; 93970-TC; 94002-TC; 94003-TC; 94640-TC; 94760-TC; 94762-TC; 94799-TC; 97110-TC; 97112-TC; 97116-TC; 97530-TC; 99082-TC; A4216; A4217; A4623; A6209; A6253; A6403; A7526; C1750; C1751; C1769; C9113; G0378; J0171; J0278; J0330; J0360; J0610; J0690; J0696; J0885; J1170; J1200; J1450; J1580; J1644; J1815; J1885; J2060; J2185; J2250; J2270; J2310; J2405; J2543; J2597; J2704; J2765; J2997; J3010; J3370; J3475; J3480; J3490; J7030; J7040; J7050; J7060; P9016-BL; P9017-BL; P9045; P9047; Q9963; Q9966; Q9967